=== PATIENT | female | born 1960 | race Caucasian/White ===

== ENCOUNTER 2023-09-23 04:26 | Outpatient (RCR) | payer OTHER, SELFPAY ==
[2023-09-02] MEDS: Normal Saline Flush 10 ML SYR IVP (10:16)
[2023-09-02 10:21] LABS: Abs Immature Grans 0.01 10^3/uL (0.0-0.06); Absolute Basophil Count 0.03 10^3/uL (0.0-0.2); Absolute Eosinophil Count 0.17 10^3/uL (0.0-0.7); Absolute Lymphocyte Count 1.74 10^3/uL (1.2-3.4); Absolute Monocyte Count 0.48 10^3/uL (0.1-0.8); Absolute Neutrophil Count 4.07 10^3/uL (1.2-6.7); Basophils % 0.5; Eosinophils % 2.6; HCT 38.9 % (36.0-46.0); HGB 12.5 g/dL (11.2-15.7); Immature Grans % 0.2; Lymphocytes % 26.8; MCH 26.5 pg (27.0-33.0); MCHC 32.1 % (32.0-36.0); MCV 82 fL (80-95); MPV 12.3 fL (8.0-11.0); Monocytes % 7.4; Neutrophils % 62.5; Platelet Count 262 10^3/uL (130-400); RBC 4.72 10^6/uL (3.93-5.22); RDW-SD 39.5 fL
[2023-09-02 10:40] LABS: ALT 19 U/L (14-59); AST 18 U/L (15-37); Albumin 2.9 g/dL (3.4-5.0); Alkaline Phosphatase 91 U/L (46-116); Anion Gap 9.1 mmol/L (3-11); BUN 12 mg/dL (7-18); Bilirubin, Total 0.4 mg/dL (0.2-1.0); CO2 29.9 mmol/L (21.0-32.0); CREATININE 1.1 mg/dL (0.55-1.02); Calcium 9.2 mg/dL (8.5-10.1); Chloride 104 mmol/L (98-107); Estimated GFR 55.76 (mL/min/1.73m2); Glucose 110 mg/dL (74-106); Potassium 3.2 mmol/L (3.5-5.1); Sodium 143 mmol/L (136-145); Total Protein 6.7 g/dL (6.4-8.2)
[2023-09-16] MEDS: Normal Saline Flush 10 ML SYR IVP (10:10)
[2023-09-16 10:49] LABS: HCT 35.6 % (36.0-46.0); HGB 11.6 g/dL (11.2-15.7); MCH 26.4 pg (27.0-33.0); MCHC 32.6 % (32.0-36.0); MCV 81 fL (80-95); MPV 11.2 fL (8.0-11.0); RBC 4.39 10^6/uL (3.93-5.22); RDW 12.3 % (11.7-14.6); RDW-SD 36.4 fL
[2023-09-16 11:06] LABS: Absolute Eosinophil Count 0.04 10^3/uL (0.0-0.7); Absolute Lymphocyte Count 0.52 10^3/uL (1.2-3.4); Absolute Monocyte Count 0.51 10^3/uL (0.1-0.8); Atypical Lymphocytes % 1; Diff Comment Manual Differential; RBC Morphology Normal
[2023-09-16 11:08] LABS: Platelet Count 232 10^3/uL (130-400)
[2023-09-16 11:10] LABS: ALT 17 U/L (14-59); AST 13 U/L (15-37); Albumin 2.7 g/dL (3.4-5.0); Alkaline Phosphatase 70 U/L (46-116); Anion Gap 10.3 mmol/L (3-11); BUN 10 mg/dL (7-18); Bilirubin, Total 0.3 mg/dL (0.2-1.0); CO2 28.7 mmol/L (21.0-32.0); CREATININE 1.2 mg/dL (0.55-1.02); Calcium 8.7 mg/dL (8.5-10.1); Chloride 100 mmol/L (98-107); Estimated GFR 50.23 (mL/min/1.73m2); Glucose 120 mg/dL (74-106); Sodium 139 mmol/L (136-145); Total Protein 6.9 g/dL (6.4-8.2)
[2023-09-16 11:13] LABS: Absolute Neutrophil Count 0.23 10^3/uL (1.2-6.7)
[2023-09-16 11:15] LABS: Potassium 2.9 mmol/L (3.5-5.1)
[2023-09-23] MEDS: Normal Saline Flush 10 ML SYR IVP (10:45)
[2023-09-23 10:53] LABS: Abs Immature Grans 0.16 10^3/uL (0.0-0.06); Absolute Basophil Count 0.06 10^3/uL (0.0-0.2); Absolute Eosinophil Count 0.03 10^3/uL (0.0-0.7); Absolute Lymphocyte Count 1.32 10^3/uL (1.2-3.4); Absolute Monocyte Count 0.89 10^3/uL (0.1-0.8); Absolute Neutrophil Count 5.49 10^3/uL (1.2-6.7); Basophils % 0.8; Eosinophils % 0.4; HCT 38.9 % (36.0-46.0); HGB 12.6 g/dL (11.2-15.7); Lymphocytes % 16.6; MCH 26.6 pg (27.0-33.0); MCHC 32.4 % (32.0-36.0); MCV 82 fL (80-95); MPV 10.3 fL (8.0-11.0); Monocytes % 11.2; Platelet Count 479 10^3/uL (130-400); RBC 4.73 10^6/uL (3.93-5.22); RDW 13.2 % (11.7-14.6); RDW-SD 39.3 fL; WBC 7.95 10^3/uL (4.4-10.8)
[2023-09-23 11:13] LABS: ALT 24 U/L (14-59); AST 23 U/L (15-37); Albumin 2.9 g/dL (3.4-5.0); Alkaline Phosphatase 82 U/L (46-116); Anion Gap 10.7 mmol/L (3-11); BUN 14 mg/dL (7-18); Bilirubin, Total 0.2 mg/dL (0.2-1.0); CO2 27.3 mmol/L (21.0-32.0); CREATININE 1.1 mg/dL (0.55-1.02); Calcium 8.9 mg/dL (8.5-10.1); Chloride 105 mmol/L (98-107); Estimated GFR 55.76 (mL/min/1.73m2); Glucose 118 mg/dL (74-106); Sodium 143 mmol/L (136-145); Total Protein 6.9 g/dL (6.4-8.2)
== END 2023-09-28 23:59 | disposition home or self-care (01) ==
LOC: INF 04:26
PROVIDERS: PCP Family Medicine; Visit Provider Internal Medicine Hematology & Oncology
DX: C50.412 Malignant neoplasm of upper-outer quadrant of left female breast (principal); Z17.0 Estrogen receptor positive status [ER+]; Z45.2 Encounter for adjustment and management of vascular access device
CPT/HCPCS: 36591; 80053; 85025

== ENCOUNTER 2023-10-21 04:40 | Outpatient (RCR) | payer OTHER, SELFPAY ==
[2023-10-07] MEDS: Normal Saline Flush 10 ML SYR IVP (10:54)
[2023-10-07 11:01] LABS: Abs Immature Grans 0.07 10^3/uL (0.0-0.06); Absolute Basophil Count 0.02 10^3/uL (0.0-0.2); Absolute Eosinophil Count 0.05 10^3/uL (0.0-0.7); Absolute Lymphocyte Count 0.74 10^3/uL (1.2-3.4); Absolute Monocyte Count 0.58 10^3/uL (0.1-0.8); Absolute Neutrophil Count 1.97 10^3/uL (1.2-6.7); Basophils % 0.6; Eosinophils % 1.5; HCT 34.5 % (36.0-46.0); HGB 11.3 g/dL (11.2-15.7); Lymphocytes % 21.6; MCHC 32.8 % (32.0-36.0); MCV 82 fL (80-95); MPV 10.6 fL (8.0-11.0); Monocytes % 16.9; Neutrophils % 57.4; Platelet Count 218 10^3/uL (130-400); RBC 4.19 10^6/uL (3.93-5.22); RDW 13.8 % (11.7-14.6); RDW-SD 39.8 fL; WBC 3.43 10^3/uL (4.4-10.8)
[2023-10-07 11:22] LABS: ALT 20 U/L (14-59); AST 15 U/L (15-37); Albumin 2.9 g/dL (3.4-5.0); Alkaline Phosphatase 83 U/L (46-116); Anion Gap 12.6 mmol/L (3-11); BUN 16 mg/dL (7-18); Bilirubin, Total 0.1 mg/dL (0.2-1.0); CO2 24.4 mmol/L (21.0-32.0); CREATININE 1.3 mg/dL (0.55-1.02); Calcium 8.7 mg/dL (8.5-10.1); Chloride 108 mmol/L (98-107); Estimated GFR 45.63 (mL/min/1.73m2); Glucose 114 mg/dL (74-106); Potassium 3.6 mmol/L (3.5-5.1); Sodium 145 mmol/L (136-145); Total Protein 6.7 g/dL (6.4-8.2)
[2023-10-21] MEDS: Normal Saline Flush 10 ML SYR IVP (10:41)
[2023-10-21 10:51] LABS: Absolute Basophil Count 0.03 10^3/uL (0.0-0.2); Absolute Eosinophil Count 0.01 10^3/uL (0.0-0.7); Absolute Lymphocyte Count 0.59 10^3/uL (1.2-3.4); Absolute Monocyte Count 0.73 10^3/uL (0.1-0.8); Basophils % 0.7; Eosinophils % 0.2; HCT 29.2 % (36.0-46.0); HGB 9.7 g/dL (11.2-15.7); Immature Grans % 2.4; Lymphocytes % 14.2; MCH 26.8 pg (27.0-33.0); MCHC 33.2 % (32.0-36.0); MCV 81 fL (80-95); MPV 10.6 fL (8.0-11.0); Monocytes % 17.5; Platelet Count 282 10^3/uL (130-400); RBC 3.62 10^6/uL (3.93-5.22); RDW 14.9 % (11.7-14.6); RDW-SD 42.6 fL; WBC 4.16 10^3/uL (4.4-10.8)
[2023-10-21 11:05] LABS: ALT 13 U/L (14-59); AST 11 U/L (15-37); Albumin 2.8 g/dL (3.4-5.0); Alkaline Phosphatase 67 U/L (46-116); Anion Gap 12.7 mmol/L (3-11); BUN 17 mg/dL (7-18); Bilirubin, Total 0.2 mg/dL (0.2-1.0); CO2 26.3 mmol/L (21.0-32.0); CREATININE 1.6 mg/dL (0.55-1.02); Calcium 8.3 mg/dL (8.5-10.1); Chloride 106 mmol/L (98-107); Estimated GFR 35.57 (mL/min/1.73m2); Glucose 114 mg/dL (74-106); Sodium 145 mmol/L (136-145); Total Protein 6.5 g/dL (6.4-8.2)
[2023-10-21 11:09] LABS: Potassium 2.7 mmol/L (3.5-5.1)
== END 2023-10-28 23:59 | disposition home or self-care (01) ==
LOC: INF 04:40
PROVIDERS: PCP Family Medicine; Visit Provider Internal Medicine Hematology & Oncology
DX: C50.412 Malignant neoplasm of upper-outer quadrant of left female breast (principal); Z17.0 Estrogen receptor positive status [ER+]; Z45.2 Encounter for adjustment and management of vascular access device
CPT/HCPCS: 36591; 80053; 85025

== ENCOUNTER 2023-11-04 10:14 | Inpatient (IN) | payer OTHER, SELFPAY ==
[2023-11-04] VITALS (119 sets, daily range): BP systolic 87–159; BP diastolic 46–74; PULSE 78–112; RESP 13–41; TEMP 36.4–36.8; O2SAT 93–100
--- NOTE | 2023-11-04 10:15 | RT.EKG_ITS ---
APPROVED REPORT Exam: Resting ECG Reason for Exam: low bp Patient Location: E HR:104 bpm ECG Measurements Heart Rate 104 AXIS TX [id number] P [id number] QRSd 91 QRS 33 QT 430 T 36 QTc 565 Conclusion Atrial fibrillation...V-rate 103-104, irreg A-activity Minimal ST depression, diffuse leads...ST <-0.03mV, ant/lat/inf Prolonged QT interval...QTc >500mS sinus rhythm, normal axis, normal itnervals, non ischemic
[2023-11-04 10:50] LABS: BE (Venous) -11 mmol/L (-2-3); HCO3 (Venous) 16 mmol/L (23-28); O2 Sat (Venous) 66 %; TCO2 (Venous) 15 mmol/L (24-29); pCO2 (Venous) 32 mmHg (41-51); pO2 (Venous) 39 mmHg
[2023-11-04 10:52] LABS: Abs Immature Grans 0.13 10^3/uL (0.0-0.06); Absolute Basophil Count 0.02 10^3/uL (0.0-0.2); Absolute Lymphocyte Count 0.67 10^3/uL (1.2-3.4); Absolute Neutrophil Count 4.75 10^3/uL (1.2-6.7); Basophils % 0.3 %; HCT 27.2 % (36.0-46.0); HGB 9.2 g/dL (11.2-15.7); Immature Grans % 1.9 %; MCH 27.1 pg (27.0-33.0); MCHC 33.8 % (32.0-36.0); MCV 80 fL (80-95); MPV 12.4 fL (8.0-11.0); Monocytes % 16.5 %; Neutrophils % 71.3 %; Platelet Count 197 10^3/uL (130-400); RBC 3.39 10^6/uL (3.93-5.22); RDW 15.9 % (11.7-14.6); RDW-SD 45.7 fL; WBC 6.67 10^3/uL (4.4-10.8)
[2023-11-04 10:54] LABS: Lactate 5.9 mmol/L (0.6-1.4)
[2023-11-04] MEDS: Normal Saline 1,000 ML 1000 ML IV (10:56)
[2023-11-04 11:07] LABS: INR 1.2 (0.9-1.1); Prothrombin Time 12.2 sec (9.1-11.1)
[2023-11-04 11:11] LABS: ALT 14 U/L (14-59); AST 14 U/L (15-37); Alkaline Phosphatase 63 U/L (46-116); Anion Gap 20.2 mmol/L (3-11); BUN 35 mg/dL (7-18); Bilirubin, Total 0.2 mg/dL (0.2-1.0); CO2 17.8 mmol/L (21.0-32.0); CREATININE 3.4 mg/dL (0.55-1.02); Calcium 8.1 mg/dL (8.5-10.1); Chloride 100 mmol/L (98-107); Glucose 153 mg/dL (74-106); Magnesium 0.9 mg/dL (1.8-2.4); Sodium 138 mmol/L (136-145)
[2023-11-04 11:14] LABS: Potassium 2.4 mmol/L (3.5-5.1)
[2023-11-04] MEDS: POTASSIUM CHLORIDE 20 MEQ/100 ML BAG 50 MEQ IVINF ×2 (11:29→14:16)
[2023-11-04] MEDS: MAGNESIUM SULFATE 2 GM/50 ML BAG IVINF (11:29)
[2023-11-04 12:21] LABS: C Diff PCR Negative (Negative)
--- NOTE | 2023-11-04 12:45 | DI.CT_ITS ---
Exam(s) CT RENAL COLIC WO EXAM: CT RENAL COLIC WO CLINICAL HISTORY: acute renal failure, hx of breast and rcc, [facility] [place] TECHNIQUE: Imaging Protocol: Axial computed tomography images with coronal and sagittal reformatted images were created and reviewed. FINDINGS: ABDOMEN: Lung Bases: There is a small infiltrate in the dependent portion of the right lower lobe. Liver: Normal density. No measurable mass. Gallbladder and biliary tract: Status post cholecystectomy. Pancreas: Normal density, no abnormal calcifications or inflammatory process. Spleen: Normal. Kidneys: The right kidney is unremarkable without evidence of nephrolithiasis or obstructive uropathy . There is a deformity of the superior pole of the left kidney. There is soft tissue stranding and i nfiltration of the surrounding perinephric space extending to the inferior aspect of the spleen.There is no evidence of left nephrolithiasis or obstructive uropathy. Adrenal glands: Right adrenal gland is unremarkable. The left adrenal gland is not appreciated. Lymph nodes: Within normal limits. Abdominal Aorta: Abdominal portion non-dilated. PELVIS: Bladder:The urinary bladder is incompletely distended limiting evaluation. No gross abnormalities lynn ntified. Bowel: No obstruction or bowel wall thickening. No evidence of appendicitis. Peritoneal cavity: No ascites, collection or mesenteric inflammatory response. No free air. Reproductive organs: Unremarkable as visualized. Bones: Within normal limits. Soft Tissues: Within normal limits. IMPRESSION: 1. No evidence of nephrolithiasis or obstructive uropathy. 2. Deformity involving the superior pole of the left kidney likely reflecting the patient's history o f renal cell carcinoma. Comparison should be made with prior examinations to assess progression of di sease. When priors become available an addendum will be issued at that time. 3. Small right basilar infiltrate which may represent atelectasis or pneumonia. 4. Findings were discussed with Velia Ardon on 11/04/2023. RADIATION DOSE DELIVERED: 1,195.26mGy.cm Total DLP DATA REPOSITORY: All CT scans at this facility are submitted to the National Radiology Data Registry (NRDR) Dose Index Registry (DIR) with the [employer] ([employer]). RADIATION OPTIMIZATION: All CT scans at this facility use at least one of these dose optimization te chniques: automated exposure control; mA and/or kV adjustment per patient size (includes targeted exa ms where dose is matched to clinical indication); or iterative reconstruction.
[2023-11-04] MEDS: Normal Saline 500 ML IV ×2 (12:47→14:48)
[2023-11-04 13:42] LABS: Lactate 2.3 mmol/L (0.6-1.4)
[2023-11-04 13:52] LABS: Anion Gap 16.3 mmol/L (3-11); BUN 35 mg/dL (7-18); CO2 19.7 mmol/L (21.0-32.0); Calcium 7.5 mg/dL (8.5-10.1); Chloride 105 mmol/L (98-107); Estimated GFR 16.73 (mL/min/1.73m2); Glucose 121 mg/dL (74-106); Sodium 141 mmol/L (136-145)
[2023-11-04 13:54] LABS: Potassium 2.6 mmol/L (3.5-5.1)
--- NOTE | 2023-11-04 14:02 | ED.GENADUL_ITS ---
Discharge Plan Disposition Patient Disposition: Admit to [facility] Condition: Critical Discharge Details Chief Complaint: GenMedical Clinical Impression: Anemia, Diarrhea due to drug, Acute on chronic renal insufficiency, Renal carcinoma, Breast cancer metastasized to axillary lymph node, Hypokalemia, Hypomagnesemia Admit Date/Time: 11/04/23 15:50 Admit Provider: Juancarlos Lynch Attending Provider: Juancarlos Lynch Primary Care Provider: Rob Ziegler ED Provider: Velia Ardon Discharge Data Discharge Date/Time-TO BE ENTERED AT DEPARTURE: 11/04/23 17:05 HPI General Date/Time Provider Initiated Documentation: 11/04/23 10:26 . HPI Narrative: This complicated 63-year-old female with history of breast cancer and renal cell carcinoma, hypertension presents with report of electrolyte abnormalities and hypotension per oncology office. Scheduled to receive new trial today. Completed cycle 2 weeks ago of Cytoxan and Adriamycin. States she feels lightheaded and weak and was told her electrolytes are abnormal. Denies any chest pain or shortness of breath. Denies any nausea and vomiting. Has had diarrhea intermittently over the course of the past several weeks, states it was worse a second and 3 October. Denies any vomiting. Drinking Gatorade at home and feels she is supplementing well for hydration. Denies any blood in stool or vomitus. Related Data Home Medications Medication Instructions Recorded Confirmed citalopram 40 mg tablet 40 mg PO HS 11/04/23 11/04/23 folic acid 1 mg tablet 1 mg PO HS 11/04/23 11/04/23 lisinopril 20 mg tablet 20 mg PO HS 11/04/23 11/04/23 loratadine 10 mg tablet (Claritin) 10 mg PO HS 11/04/23 11/04/23 Allergies Allergy/AdvReac Type Severity Reaction Status Date / Time Penicillins Allergy Mild Skin Rash Verified 11/04/23 11:04 General Stated Complaint: GenMedical WILLIAM: 3 Exam Narrative Exam Narrative: Alert and oriented chronically ill-appearing 63-year-old female with moist mucous membranes, pupils equal round reactive to light and accommodation, no icterus, lungs clear to auscultation, cardiac rate rhythm regular, no abdominal tenderness, pallor, alert and oriented x 4, no significant edema to bilateral lower extremities Course Vital Signs Vital signs: Vital Signs Pulse 112 H 11/04/23 10:16 Respiratory Rate 14 11/04/23 10:16 Blood Pressure 159/47 H 11/04/23 10:16 Pulse Oximetry 93 11/04/23 10:16 Pulse 85 11/04/23 13:47 Respiratory Rate 18 11/04/23 13:50 Respiratory Effort Short of Breath 11/04/23 10:44 Respiratory Depth Normal 11/04/23 10:44 Respiratory Pattern Normal 11/04/23 10:44 Blood Pressure 108/48 L 11/04/23 13:47 Blood Pressure Position Sitting 11/04/23 10:16 Pulse Oximetry 99 11/04/23 13:50 Oxygen Delivery Method Room Air 11/04/23 10:16 Oxygen Flow Rate 0 11/04/23 10:16 Pain Level 0 11/04/23 10:44 Lab/Test Results Lab/Test Results: 11/04/23 11:20 Blood Blood Culture - Pending 11/04/23 10:30 Blood Blood Culture - Pending Laboratory Tests Range/Units 11/04/23 11/04/23 11/04/23 10:40 10:48 13:35 WBC (4.4-10.8) 10^3/uL 6.67 RBC (3.93-5.22) 10^6/uL 3.39 L Hgb (11.2-15.7) g/dL 9.2 L Hct (36.0-46.0) % 27.2 L MCV (80-95) fL 80 MCH (27.0-33.0) pg 27.1 MCHC (32.0-36.0) % 33.8 RDW (11.7-14.6) % 15.9 H Plt Count (130-400) 10^3/uL 197 MPV (8.0-11.0) fL 12.4 H Immature Gran % % 1.9 Neutrophils % % 71.3 Lymphocytes % % 10.0 Monocytes % % 16.5 Eosinophils % % 0.0 Basophils % % 0.3 Nucleated RBC % (0.0-0.3) % 0.0 Absolute Neutrophils (1.2-6.7) 10^3/uL 4.75 Absolute Lymphocytes (1.2-3.4) 10^3/uL 0.67 L Absolute Monocytes (0.1-0.8) 10^3/uL 1.10 H Absolute Eosinophils (0.0-0.7) 10^3/uL 0.00 Absolute Basophils (0.0-0.2) 10^3/uL 0.02 PT (9.1-11.1) sec 12.2 H INR (0.9-1.1) 1.2 H VBG pH (7.31-7.41) 7.30 L VBG pCO2 (41-51) mmHg 32 L VBG pO2 mmHg 39 VBG HCO3 (23-28) mmol/L 16 L VBG Total CO2 (24-29) mmol/L 15 L VBG O2 Saturation % 66 VBG Base Excess (-2-3) mmol/L -11 L VBG Lactate (0.6-1.4) mmol/L 5.9 H* 2.3 H* Sodium (136-145) mmol/L 138 141 Potassium (3.5-5.1) mmol/L 2.4 L* 2.6 L* Chloride (98-107) mmol/L 100 105 Carbon Dioxide (21.0-32.0) mmol/L 17.8 L 19.7 L Anion Gap (3-11) mmol/L 20.2 H 16.3 H BUN (7-18) mg/dL 35 H 35 H Creatinine (0.55-1.02) mg/dL 3.4 H 3.0 H Est GFR (CKD-EPI 2020) (mL/min/1.73m2) 14.40 16.73 Glucose (74-106) mg/dL 153 H 121 H Calcium (8.5-10.1) mg/dL 8.1 L 7.5 L Magnesium (1.8-2.4) mg/dL 0.9 L Total Bilirubin (0.2-1.0) mg/dL 0.2 AST (15-37) U/L 14 L ALT (14-59) U/L 14 Alkaline Phosphatase (46-116) U/L 63 Total Protein (6.4-8.2) g/dL 7.0 Albumin (3.4-5.0) g/dL 3.0 L Stl C.difficile Tox PCR (Negative) Negative ABO/Rh O Positive Antibody Screen NEGATIVE Medical Decision Making This 63-year-old female is presenting chronically ill with history of breast and renal cancer this scheduled to initiate second cycle of single drug chemotherapy today with electrolyte abnormalities hypotension and weakness [facility] patient was 87/40, she did take her blood pressure meds yesterday. Currently her blood pressure is 95/65, her creatinine is 3.4, BUN is elevated, bicarb and gap are elevated. I suspect this is prerenal in nature as patient has not produced any urine throughout this encounter. She is not showing any signs of CHF overtly and her CT abdomen and pelvis does not show evidence of acute renal process per radiology interpretation and my review, specifically no evidence of obstructive process. pH 7.3, mag of 0.9, I did give 2 g of mag, however patient's blood pressure dropped slightly so I will hold additional magnesium at this time. Patient also has a potassium of 2.4. 20 mEq of IV and 40 mg of p.o. potassium was administered. Despite patient being in renal failure, I suspect this is prerenal in nature and will continue to supplement with potassium, on repeat BMP potassium increases to 2.6 and creatinine is improving. Patient had a bladder scan which showed only 85 cc of fluid in the bladder will continue to hydrate, has received 2 L of NS at this time. I suspect blood pressure is secondary to dehydration and will hold on any antibiotics at this time. Anemia has improved when comparing CBC from earlier today, no indication for transfusion. Patient will need admission to the hospital. She wishes to be full CODE STATUS at this time. Calcium is low, however patient is volume depleted, will order outpatient ionized calcium. I patient is also on chemotherapies which could be contributing to acute renal failure. Quality:[facility] Related Social Needs: No Data to Display Critical Care Time Critical Care Time Attestation: 45 minutes of critical care time secondary to potassium administration, magnesium administration for acute deficiency, IV fluid resuscitation secondary to acute renal failure in the presence of likely prerenal state of dehydration, no obstructive process noted PFSH All Active Problems (Updated 11/05/23 @ 08:32 by JOHNNY Tsai) Renal carcinoma (Acute) Anemia (Chronic) Discharge planning issues (Acute) DVT prophylaxis (Acute) Breast cancer metastasized to axillary lymph node (Acute) Hypomagnesemia (Acute) Hypokalemia (Acute) Acute on chronic renal insufficiency (Acute) Diarrhea due to drug (Acute) Hypertension (Chronic) Medical History (Updated 11/05/23 @ 08:32 by JOHNNY Tsai) Renal cell carcinoma of left kidney Depression with anxiety Surgical History (Updated 11/04/23 @ 18:37 by Juancarlos Lynch) H/O left mastectomy H/O partial nephrectomy left, for RCC Social History (Updated 11/04/23 @ 18:38 by Juancarlos Lynch) Smoking/Tobacco Use Status: Never Smoking risk assessment performed?: Yes Alcohol Intake: never Drug use: Never Housing: house Additional Social history: lives with Jevon, who is supportive and helps care for her. Born in [place], grew up in [place]
[2023-11-04] MEDS: Potassium Chloride 20 MEQ TABCR 40 MEQ PO (14:16)
[2023-11-04 15:56] LABS: Creatine Kinase 54 U/L (26-192)
[2023-11-04] MEDS: Enoxaparin 30 MG/0.3 ML SYR SC (17:37)
--- NOTE | 2023-11-04 18:25 | HPE_ITS ---
Date of service: 11/04/23 Time of Service: 18:25 Assessment and Plan Assessment and plan (1) Acute on chronic renal insufficiency: Status: Acute Assessment and plan: Reviewing outside record, she has some baseline renal insufficiency with Cr at 1.5, but clearly worse today. No signs obstruction on CT. Given poor oral intake and diarrhea with K/Mg low, improvement with initial hydration, this is very likely prerenal. Lisinopril was probably more than she needed with recent weight loss, likely contributing as well, holding this. Get urine lytes to confirm c/w prerenal s/p 2 liters NS in ED, she would like to try taking oral fluids She is clearly now making urine, but hard to quantify with incontinence. She agrees to ocampo short term. (2) Hypertension: Status: Chronic Assessment and plan: low BP initially, now stable. holding ROSALINA-inh. If this is restarted, will likely need lower dose. (3) Hypokalemia: Status: Acute Assessment and plan: Given 20mEq in ED, some imrpovement, but still very low. Now that making urine, give additional 20mEq. Repeat this evening and give more as needed. (4) Hypomagnesemia: Status: Acute Assessment and plan: 2g in ED, repeat this evening and give additional PRN (5) Breast cancer metastasized to axillary lymph node: Status: Acute Assessment and plan: Chemo on hold, follow up with heme/onc as outpatient (6) DVT prophylaxis: Status: Acute Assessment and plan: LMWH given high risk. (7) Diarrhea due to drug: Status: Acute Assessment and plan: Not active now. Negative C. dif on outside records. Can use loperamide prn History of Present Illness History of Present Illness Chief Complaint: abnormal labs, lightheaded N arrative: 63 yo with history of hypertension, breast cancer currently receiving chemotherapy, and renal cell carcinoma status post partial left nephrectomy who was sent by her oncologist after routine labs done today showed worsening kidney function and electrolyte abnormalities. Patient denies feeling acutely ill, but she has felt more generally weak and lightheaded over the past several days. She has had intermittent diarrhea over the past several weeks, typically for 3 days following chemotherapy infusions. She had copious diarrhea May 1 through 3, but this has improved. She denies nausea and vomiting. She denies fevers. She has been drinking juice and Gatorade at home, but has not had anything to eat or drink today. She finished the first cycle of Cytoxan and Adriamycin 2 weeks ago, and was supposed to start the second cycle today for her breast cancer. She has noted that she is making less urine over the last day or 2, but since the IV in the emergency room she has urinated, but states she could not save it because it was mixed with stool. Review of Systems All systems reviewed & are unremarkable except as noted in HPI and below Constitutional Constitutional: Denies headache(s) Eyes Eyes: Denies loss of vision ENT Ears, Nose, Mouth, and Throat: Denies dental pain, Denies vertigo, Denies headache(s), Denies mouth lesions, Reports nasal discharge (chronic rhinorrhea, clear), Denies sinus pain and Denies sore throat Cardiovascular Cardiovascular: Denies chest pain, Denies leg edema, Denies palpitations and Denies dyspnea Respiratory Respiratory: Denies dyspnea Gastrointestinal Gastrointestinal: Reports as per HPI, Denies melena, Denies hematochezia and Reports cramping (in lower abdomen with stools) Neurologic Neurologic: Denies confusion, Denies vertigo, Denies headache(s), Denies localized weakness, Denies loss of vision, Denies sensory deficit and Reports tremor(s) (tremor noted in mouth since chemo started) Psychiatric Psychiatric: Denies confusion Endocrine Endocrine: Denies palpitations PFSH All Active Problems (Updated 11/04/23 @ 18:47 by Juancarlos Lynch) Discharge planning issues (Acute) DVT prophylaxis (Acute) Breast cancer metastasized to axillary lymph node (Acute) Hypomagnesemia (Acute) Hypokalemia (Acute) Acute on chronic renal insufficiency (Acute) Diarrhea due to drug (Acute) Hypertension (Chronic) Medical History (Updated 11/04/23 @ 18:47 by Juancarlos Lynch) Renal cell carcinoma of left kidney Depression with anxiety Surgical History (Updated 11/04/23 @ 18:37 by Juancarlos Lynch) H/O left mastectomy H/O partial nephrectomy left, for RCC Social History (Updated 11/04/23 @ 18:38 by Juancarlos Lynch) Smoking/Tobacco Use Status: Never Smoking risk assessment performed?: Yes Alcohol Intake: never Drug use: Never Additional Social history: lives with Jevon, who is supportive and helps care for her. Born in [place], grew up in [place] Meds Allergies and Home Medications Allergies Allergy/AdvReac Type Severity Reaction Status Date / Time Penicillins Allergy Mild Skin Rash Verified 11/04/23 11:04 Home Medications Medication Instructions Recorded Confirmed Type citalopram 40 mg tablet 20 mg PO DAILY 11/04/23 11/04/23 History folic acid 1 mg tablet 1 mg PO DAILY 11/04/23 11/04/23 History lisinopril 20 mg tablet 20 mg PO DAILY 11/04/23 11/04/23 History Results Imaging Abdomen CT scan report/results: report reviewed (CT abd/pelvis w/o (renal): 1. No evidence of nephrolithiasis or obstructive uropathy. 2. Deformity involving the superior pole of the left kidney likely reflecting the patient's history of renal cell carcinoma. Comparison should be made with prior examinations to assess progression of disease. When) EKG: report reviewed and image reviewed (computer read as Afib, but I agree with Dr. Turner that NSR, nl axis, no ST-T changes. QTc long 565) Labs 11/04/23 10:40 11/04/23 13:35 Labs: Laboratory Results - last 24 hr 11/04/23 11/04/23 11/04/23 10:40 10:48 13:05 WBC 6.67 RBC 3.39 L Hgb 9.2 L Hct 27.2 L MCV 80 MCH 27.1 MCHC 33.8 RDW 15.9 H Plt Count 197 MPV 12.4 H Immature Gran % 1.9 Neutrophils % 71.3 Lymphocytes % 10.0 Monocytes % 16.5 Eosinophils % 0.0 Basophils % 0.3 Nucleated RBC % 0.0 Absolute Neutrophils 4.75 Absolute Lymphocytes 0.67 L Absolute Monocytes 1.10 H Absolute Eosinophils 0.00 Absolute Basophils 0.02 PT 12.2 H INR 1.2 H VBG pH 7.30 L VBG pCO2 32 L VBG pO2 39 VBG HCO3 16 L VBG Total CO2 15 L VBG O2 Saturation 66 VBG Base Excess -11 L VBG Lactate 5.9 H* Sodium 138 Potassium 2.4 L* Chloride 100 Carbon Dioxide 17.8 L Anion Gap 20.2 H BUN 35 H Creatinine 3.4 H Est GFR (CKD-EPI 2020) 14.40 Glucose 153 H Calcium 8.1 L Magnesium 0.9 L Total Bilirubin 0.2 AST 14 L ALT 14 Alkaline Phosphatase 63 Creatine Kinase 54 Total Protein 7.0 Albumin 3.0 L Ur Collection Duration Ur 24 Hour Volume Ur Albumin 24 Hour Albumin Excret Rate 24H Urine Albumin Conc Stl C.difficile Tox PCR Negative ABO/Rh O Positive Antibody Screen NEGATIVE 11/04/23 11/04/23 13:35 15:30 WBC RBC Hgb Hct MCV MCH MCHC RDW Plt Count MPV Immature Gran % Neutrophils % Lymphocytes % Monocytes % Eosinophils % Basophils % Nucleated RBC % Absolute Neutrophils Absolute Lymphocytes Absolute Monocytes Absolute Eosinophils Absolute Basophils PT INR VBG pH VBG pCO2 VBG pO2 VBG HCO3 VBG Total CO2 VBG O2 Saturation VBG Base Excess VBG Lactate 2.3 H* Sodium 141 Potassium 2.6 L* Chloride 105 Carbon Dioxide 19.7 L Anion Gap 16.3 H BUN 35 H Creatinine 3.0 H Est GFR (CKD-EPI 2020) 16.73 Glucose 121 H Calcium 7.5 L Magnesium Total Bilirubin AST ALT Alkaline Phosphatase Creatine Kinase Total Protein Albumin Ur Collection Duration Cancelled Ur 24 Hour Volume Cancelled Ur Albumin 24 Hour Cancelled Albumin Excret Rate 24H Cancelled Urine Albumin Conc Cancelled Stl C.difficile Tox PCR ABO/Rh Antibody Screen Last Vital Signs Temp 36.4 C L 11/04/23 17:30 Pulse 90 11/04/23 17:30 Resp 16 11/04/23 17:30 BP 111/58 L 11/04/23 17:30 Pulse Ox 100 11/04/23 17:30 Time Spent Time spent with Patient: >75 minutes Time was spent: preparing to see the patient(eg.review tests), obtaining and/or reviewing separately otained hiistory, ordering medications,tests, procedures, referring, communicating with other health manager primary care, indepentently interpreting results, counseling the patient and care coordination
[2023-11-04] MEDS: Folic Acid 1 MG TAB PO (21:56)
[2023-11-04] MEDS: Citalopram 20 MG TAB PO (21:56)
[2023-11-04 22:13] LABS: Bilirubin Small (Negative); Blood Small (Negative); Clarity Sl Cloudy (Clear); Glucose Negative (Negative); Ketones Trace mg/dL (Negative); Leukocyte Esterase Negative (Negative); Nitrite Negative (Negative); Specific Gravity 1.025 (1.005-1.025); Urobilinogen 0.2 mg/dL (Up to 0.2); pH 5.5 (5-8)
[2023-11-04 22:15] LABS: Ionized Calcium 0.97 mmol/L (1.14-1.35)
[2023-11-04 22:18] LABS: Anion Gap 15.4 mmol/L (3-11); BUN 35 mg/dL (7-18); CO2 20.6 mmol/L (21.0-32.0); Calcium 7.6 mg/dL (8.5-10.1); Chloride 106 mmol/L (98-107); Estimated GFR 16.73 (mL/min/1.73m2); Glucose 110 mg/dL (74-106); Magnesium 1.3 mg/dL (1.8-2.4); Sodium 142 mmol/L (136-145)
[2023-11-04 22:21] LABS: Bacteria Few HPF (Negative); C & S Indicated? No; Crystals Negative HPF (Negative); Epithelial Cells Moderate HPF (Negative); Mucus Negative (Negative)
[2023-11-04 22:22] LABS: Potassium 2.6 mmol/L (3.5-5.1)
[2023-11-04 22:22] LABS: WBC 0-2 HPF (0-5)
[2023-11-04 22:24] LABS: Sodium, Urine 19 mmol/L
[2023-11-04 22:31] LABS: Creatinine,Urine 396.83 mg/dL
[2023-11-04] MEDS: POTASSIUM CHLORIDE/0.9% NACL 1,000 ML 100 MEQ IV (23:34)
[2023-11-04] MEDS: POTASSIUM CHLORIDE 10 MEQ/100 ML BAG 100 MEQ IVINF (23:34)
[2023-11-05 00:21] LABS: Campylobacter PCR Negative (Negative); Salmonella PCR Negative (Negative); Shiga Toxin PCR Negative (Negative); Shigella/Enteroinvasive Ecoli Negative (Negative)
[2023-11-05 03:23] VITALS: BP 138/73; PULSE 92; RESP 15; TEMP 36.4; O2SAT 98
[2023-11-05 07:08] LABS: MCH 26.7 pg (27.0-33.0); MCHC 33.3 % (32.0-36.0); MCV 80 fL (80-95); MPV 11.5 fL (8.0-11.0); Platelet Count 199 10^3/uL (130-400); RDW 16.2 % (11.7-14.6); RDW-SD 45.5 fL; WBC 5.37 10^3/uL (4.4-10.8)
[2023-11-05 07:25] LABS: Anion Gap 15.8 mmol/L (3-11); BUN 32 mg/dL (7-18); CO2 20.2 mmol/L (21.0-32.0); CREATININE 2.2 mg/dL (0.55-1.02); Calcium 7.9 mg/dL (8.5-10.1); Chloride 108 mmol/L (98-107); Estimated GFR 24.27 (mL/min/1.73m2); Glucose 120 mg/dL (74-106); Magnesium 1.3 mg/dL (1.8-2.4); Potassium 3.1 mmol/L (3.5-5.1); Sodium 144 mmol/L (136-145)
[2023-11-05 08:09] VITALS: BP 119/65; PULSE 90; RESP 15; TEMP 36.4; O2SAT 94
[2023-11-05] MEDS: MAGNESIUM SULFATE 4 GM/100 ML BAG IVINF (09:27)
--- NOTE | 2023-11-05 09:32 | W.PM.PROGNOT ---
Date of Service Date of service: 11/05/23 Time of Service: 09:32 Assessment and Plan Assessment and plan (1) Acute on chronic renal insufficiency: Status: Acute Assessment and plan: Cr up to 3.4 from 1.6 on admission, improving now with IV hydration c/w pre-renal. No signs obstruction on CT. Lisinopril was probably more than she needed with recent weight loss, likely contributing as well, holding this. Urine lytes orderd confirm c/w prerenal Vomited after first meal in the past 24 hours last night, will resume fluids today and progress slowly. Appropriate urine output documented this morning, continue ocampo for now. Anion gap still noted. Initially elevated lactate improved with hydration, SURY also contributing. I expect this to resolve. (2) Hypertension: Status: Chronic Assessment and plan: low BP initially, now stable. holding ROSALINA-inh. If this is restarted, will likely need lower dose. (3) Hypokalemia: Status: Acute Assessment and plan: Still low, additional IV potassium runs today, follow in PM. Also treating low magnesium (4) Hypomagnesemia: Status: Acute Assessment and plan: Still quite low, additional 4mg IV today. Follow. (5) Breast cancer metastasized to axillary lymph node: Status: Acute Assessment and plan: Chemo on hold, follow up with heme/onc as outpatient (6) Diarrhea due to drug: Status: Acute Assessment and plan: Soft stools overnight but this is common for her. No overt diarrhea. Negative C. dif on outside records. Can use loperamide prn (7) DVT prophylaxis: Status: Acute Assessment and plan: LMWH given high risk. Subjective Subjective Patient reports: denies shortness of breath or fever Interval history since last seen: Was hungry last night, ate soup and tuna sandwich and vomited around midnight. Was made NPO then. No nausea now. Would like to try fluids again. She denies diarrhea, but did have 3 soft stools. No abdominal pain. Exam Narrative Exam Narrative: Alert and oriented chronically ill-appearing female, alert and oriented x 4, pupils equal round reactive to light and accommodation, no icterus, MMM. lungs clear to auscultation, cardiac rate rhythm regular, no abdominal tenderness or distention or masses. no significant edema or tendernessto bilateral lower extremities Objective Last Vital Signs Temp 36.4 C L 11/05/23 08:09 Pulse 90 11/05/23 08:09 Resp 15 11/05/23 08:09 BP 119/65 11/05/23 08:09 Pulse Ox 94 11/05/23 08:09 Laboratory Results - last 24 hr 11/04/23 11/04/23 11/04/23 10:40 10:48 13:05 WBC 6.67 RBC 3.39 L Hgb 9.2 L Hct 27.2 L MCV 80 MCH 27.1 MCHC 33.8 RDW 15.9 H Plt Count 197 MPV 12.4 H Immature Gran % 1.9 Neutrophils % 71.3 Lymphocytes % 10.0 Monocytes % 16.5 Eosinophils % 0.0 Basophils % 0.3 Nucleated RBC % 0.0 Absolute Neutrophils 4.75 Absolute Lymphocytes 0.67 L Absolute Monocytes 1.10 H Absolute Eosinophils 0.00 Absolute Basophils 0.02 PT 12.2 H INR 1.2 H VBG pH 7.30 L VBG pCO2 32 L VBG pO2 39 VBG HCO3 16 L VBG Total CO2 15 L VBG O2 Saturation 66 VBG Base Excess -11 L VBG Lactate 5.9 H* Sodium 138 Potassium 2.4 L* Chloride 100 Carbon Dioxide 17.8 L Anion Gap 20.2 H BUN 35 H Creatinine 3.4 H Est GFR (CKD-EPI 2020) 14.40 Glucose 153 H Calcium 8.1 L Magnesium 0.9 L Total Bilirubin 0.2 AST 14 L ALT 14 Alkaline Phosphatase 63 Creatine Kinase 54 Total Protein 7.0 Albumin 3.0 L Urine Color Urine Clarity Urine pH Ur Specific [place] Urine Protein Urine Ketones Urine Blood Urine Nitrite Urine Bilirubin Urine Urobilinogen Ur Leukocyte Esterase Urine RBC Urine WBC Ur Epithelial Cells Urine Crystals Urine Bacteria Urine Mucus Ur Culture Indicated? Ur Random Creatinine Ur Random Sodium Ur Collection Duration Ur 24 Hour Volume Ur Albumin 24 Hour Albumin Excret Rate 24H Urine Glucose Urine Albumin Conc Stl C.difficile Tox PCR Negative ABO/Rh O Positive Antibody Screen NEGATIVE 11/04/23 11/04/23 11/04/23 13:35 15:30 21:45 WBC RBC Hgb Hct MCV MCH MCHC RDW Plt Count MPV Immature Gran % Neutrophils % Lymphocytes % Monocytes % Eosinophils % Basophils % Nucleated RBC % Absolute Neutrophils Absolute Lymphocytes Absolute Monocytes Absolute Eosinophils Absolute Basophils PT INR VBG pH VBG pCO2 VBG pO2 VBG HCO3 VBG Total CO2 VBG O2 Saturation VBG Base Excess VBG Lactate 2.3 H* Sodium 141 Potassium 2.6 L* Chloride 105 Carbon Dioxide 19.7 L Anion Gap 16.3 H BUN 35 H Creatinine 3.0 H Est GFR (CKD-EPI 2020) 16.73 Glucose 121 H Calcium 7.5 L Magnesium Total Bilirubin AST ALT Alkaline Phosphatase Creatine Kinase Total Protein Albumin Urine Color Yellow Urine Clarity Sl Cloudy Urine pH 5.5 Ur Specific [place] 1.025 Urine Protein Trace Urine Ketones Trace H Urine Blood Small H Urine Nitrite Negative Urine Bilirubin Small H Urine Urobilinogen 0.2 Ur Leukocyte Esterase Negative Urine RBC 3-5 H Urine WBC 0-2 Ur Epithelial Cells Moderate Urine Crystals Negative Urine Bacteria Few Urine Mucus Negative Ur Culture Indicated? No Ur Random Creatinine 396.83 Ur Random Sodium 19 Ur Collection Duration Cancelled Ur 24 Hour Volume Cancelled Ur Albumin 24 Hour Cancelled Albumin Excret Rate 24H Cancelled Urine Glucose Negative Urine Albumin Conc Cancelled Stl C.difficile Tox PCR ABO/Rh Antibody Screen 11/04/23 11/05/23 21:50 06:46 WBC 5.37 RBC 3.00 L Hgb 8.0 L Hct 24.0 L MCV 80 MCH 26.7 L MCHC 33.3 RDW 16.2 H Plt Count 199 MPV 11.5 H Immature Gran % Neutrophils % Lymphocytes % Monocytes % Eosinophils % Basophils % Nucleated RBC % Absolute Neutrophils Absolute Lymphocytes Absolute Monocytes Absolute Eosinophils Absolute Basophils PT INR VBG pH VBG pCO2 VBG pO2 VBG HCO3 VBG Total CO2 VBG O2 Saturation VBG Base Excess VBG Lactate Sodium 142 144 Potassium 2.6 L* 3.1 L Chloride 106 108 H Carbon Dioxide 20.6 L 20.2 L Anion Gap 15.4 H 15.8 H BUN 35 H 32 H Creatinine 3.0 H 2.2 H Est GFR (CKD-EPI 2020) 16.73 24.27 Glucose 110 H 120 H Calcium 7.6 L 7.9 L Magnesium 1.3 L 1.3 L Total Bilirubin AST ALT Alkaline Phosphatase Creatine Kinase Total Protein Albumin Urine Color Urine Clarity Urine pH Ur Specific [place] Urine Protein Urine Ketones Urine Blood Urine Nitrite Urine Bilirubin Urine Urobilinogen Ur Leukocyte Esterase Urine RBC Urine WBC Ur Epithelial Cells Urine Crystals Urine Bacteria Urine Mucus Ur Culture Indicated? Ur Random Creatinine Ur Random Sodium Ur Collection Duration Ur 24 Hour Volume Ur Albumin 24 Hour Albumin Excret Rate 24H Urine Glucose Urine Albumin Conc Stl C.difficile Tox PCR ABO/Rh Antibody Screen Time Spent with Patient Time Spent with Patient: 35-49 minutes Time was spent: preparing to see the patient(eg.review tests), obtaining and/or reviewing separately otained hiistory, ordering medications,tests, procedures, referring, communicating with other health small animal caretaker, indepentently interpreting results and counseling the patient
[2023-11-05] MEDS: Normal Saline Flush 10 ML SYR (09:35)
[2023-11-05] MEDS: POTASSIUM CHLORIDE/0.9% NACL 1,000 ML 100 MEQ IV (10:26)
--- NOTE | 2023-11-05 10:44 | PDOC.CMIN ---
Date of service: 11/05/23 Time of Service: 10:44 Care Management Initial Assmt Initial Assessment REASON FOR HOSPITALIZATION:: Acute on chronic renal insufficiency PREVIOUS FUNCTIONAL STATUS/SOCIAL/FAMILY SUPPORTS:: Sarah lives in [facility] with her Redd and grandson. Her children Miri and Mani live out of state and are supportive. Sarah has breast cancer and a HX of renal cancer. She is being treated for breast cancer and sees Oncology at [facility] in [facility]. She came to the ED after becoming lightheaded and weak at her chemo appointment. Sarah requires assistance with her ADL/IADL's due to her health decline and Redd provides this support. Redd is retired from the and is able to be home to care for his . CURRENT FUNCTIONAL STATUS:: Sarah was lying in bed, visiting with her who was sitting at her bedside. She had Nausea and vomiting after eating a sandwich , and is pleased that she can now tolerate a liquid diet. Sarah feels very supported by her and expresses her gratitude that he is so helpful. At home she ambulates with the help of her rather than using a walker or a cane. Sarah doesn't use any DME at this time but has a walker and commode that was her mothers. ADVANCE DIRECTIVES:: on file, [facility] Esteves, alt agent Redd Esteves Has patient been provided with info about the portal/API?: Yes Did the patient sign up for the portal?: No CODE STATUS:: Full Code INSURANCE COVERAGE / FINANCIAL ISSUES:: [place] CURRENT HOME/COMMUNITY SERVICES/EQUIPMENT:: [employer] [place] [employer] PRIMARY CARE PHYSICIAN:: Rob Ziegler POTENTIAL DISCHARGE NEEDS:: Discharge plan of care, follow up with oncology, ?Palliative consult PATIENT/FAMILY EDUCATION NEEDS:: Review discharge instructions, limitations, medications and plan to follow up with community providers. Discuss ask me three. ANTICIPATED BARRIERS TO DISCHARGE:: None identified TRANSPORTATION:: via private vehicle with PLAN:: Sarah is being closely monitored and treated. Anticipate, she will discharge home and follow up with [facility] and PCP when Medically ready. She will transport via private vehicle with her . New O/E VNA services will be ordered, if needed. CM will follow. PFSH All Active Problems (Updated 11/05/23 @ 08:32 by JOHNNY Tsai) Renal carcinoma (Acute) Anemia (Chronic) Discharge planning issues (Acute) DVT prophylaxis (Acute) Breast cancer metastasized to axillary lymph node (Acute) Hypomagnesemia (Acute) Hypokalemia (Acute) Acute on chronic renal insufficiency (Acute) Diarrhea due to drug (Acute) Hypertension (Chronic) Medical History (Updated 11/05/23 @ 08:32 by JOHNNY Tsai) Renal cell carcinoma of left kidney Depression with anxiety Surgical History (Updated 11/04/23 @ 18:37 by Juancarlos Lynch) H/O left mastectomy H/O partial nephrectomy left, for RCC Social History (Updated 11/04/23 @ 18:38 by Juancarlos Lynch) Smoking/Tobacco Use Status: Never Smoking risk assessment performed?: Yes Alcohol Intake: never Drug use: Never Housing: house Additional Social history: lives with Jevon, who is supportive and helps care for her. [place] in [place], [place] in [place] SDOH(Care Management) Screening Will the Patient Participate in the Screening?: Yes Do you worry about having a steady place to live?: no In the past 12 months, have you had to go without electric, gas, oil or water in your home?: no Have you or anyone in your house had to go without enough food to eat?: no Has lack of transportation kept you from medical appointments or from doing things needed for daily living?: no Has anyone in your support network made you feel unsafe for any reason?: no
[2023-11-05 11:23] VITALS: BP 106/55; PULSE 91; RESP 16; TEMP 37; O2SAT 97
[2023-11-05] MEDS: POTASSIUM CHLORIDE 20 MEQ/100 ML BAG 50 MEQ IVINF ×2 (13:38→17:02)
[2023-11-05 16:07] VITALS: BP 117/60; PULSE 85; RESP 16; TEMP 37; O2SAT 98
[2023-11-05] MEDS: Enoxaparin 30 MG/0.3 ML SYR SC (17:02)
[2023-11-05 19:31] LABS: Potassium 3.9 mmol/L (3.5-5.1)
[2023-11-05 19:37] VITALS: BP 112/59; PULSE 100; RESP 18; TEMP 36.7; O2SAT 96
[2023-11-05] MEDS: Folic Acid 1 MG TAB PO (21:11)
[2023-11-05] MEDS: Loratidine 10 MG TAB PO (21:11)
[2023-11-06 00:16] VITALS: BP 98/50; PULSE 90; RESP 16; TEMP 37.2; O2SAT 96
[2023-11-06] MEDS: Normal Saline Flush 10 ML SYR (03:33)
[2023-11-06] MEDS: POTASSIUM CHLORIDE/0.9% NACL 1,000 ML 100 MEQ IV (03:37)
[2023-11-06 07:54] VITALS: BP 108/65; PULSE 84; RESP 16; TEMP 36.2; O2SAT 99
[2023-11-06 09:33] LABS: BUN 16 mg/dL (7-18); CREATININE 1.1 mg/dL (0.55-1.02); Calcium 7.9 mg/dL (8.5-10.1); Chloride 111 mmol/L (98-107); Estimated GFR 55.76 (mL/min/1.73m2); Glucose 103 mg/dL (74-106); Magnesium 1.6 mg/dL (1.8-2.4); Potassium 3.7 mmol/L (3.5-5.1); Sodium 144 mmol/L (136-145)
[2023-11-06 11:09] VITALS: BP 114/68; PULSE 91; RESP 16; TEMP 36.3; O2SAT 99
[2023-11-06] MEDS: MAGNESIUM SULFATE 2 GM/50 ML BAG IVINF (11:22)
--- NOTE | 2023-11-06 14:15 | PDOC.CMPRO ---
Date of service: 11/06/23 Time of Service: 14:15 Care Management Progress Note Progress Note Text Progress Note Text: S/O: Sarah was in bed with the HOB elevated when CM met with her. Her was sitting at the bedside. Sarah is planning on discharging home later today if she is able to tolerate solid foods. She's feels much better and is waiting for a tray with solids. Nutrition is notified. Pt states that she has an appointment with Oncology next Friday and plans on resuming chemo. Sarah feels well supported at home and within the medical community and expresses how thankful she is for the care [facility] is providing. She also talks about the layout of her home and how she and her use their Lucía's as an alarm system and for communication. A: 63 year old female admitted to [facility] on 11/04/23 for Acute on chronic renal insufficiency P:Sarah is being closely monitored and treated. Anticipate, she will discharge home and follow up with [facility] and PCP when Medically ready. She will transport via private vehicle with her . New O/E VNA services will be ordered, if needed. CM will follow. SDOH(Care Management) Screening Will the Patient Participate in the Screening?: Yes Do you worry about having a steady place to live?: no In the past 12 months, have you had to go without electric, gas, oil or water in your home?: no Have you or anyone in your house had to go without enough food to eat?: no Has lack of transportation kept you from medical appointments or from doing things needed for daily living?: no Has anyone in your support network made you feel unsafe for any reason?: no
[2023-11-06 15:38] VITALS: BP 135/63; PULSE 90; RESP 16; TEMP 36.5; O2SAT 100
[2023-11-06] MEDS: Enoxaparin 30 MG/0.3 ML SYR SC (15:55)
--- NOTE | 2023-11-06 17:09 | W.PM.DS.N ---
Date of service: 11/06/23 Time of Service: 17:10 DS: Diagnosis Discharge Diagnosis (1) Acute on chronic renal insufficiency: Status: Acute Asessment and Plan: SURY resolved. (2) Hypertension: Status: Chronic (3) Hypokalemia: Status: Acute Asessment and Plan: normalized with supplumentation (4) Hypomagnesemia: Status: Acute (5) Breast cancer metastasized to axillary lymph node: Status: Acute (6) Diarrhea due to drug: Status: Acute Discharge Plan Disposition Patient Disposition: Home Condition: Improving Discharge Details Reason For Visit: acute kidney injury, dehydration, hypokalemia Admit Date/Time: 11/04/23 15:50 Admit Provider: Juancarlos Lynch Attending Provider: Juancarlos Lynch Primary Care Provider: Rob Ziegler Hospital Course Hospital Course: 63 yo F with history of stage 3a CKD, renal cell carcinoma s/p partial left nephrectomy, active breast cancer recieving chemotherapy with Cytoxan and Adriamycin who was sent by oncology office due to hypokalemia and SURY in setting of loose stools and generalized weakness. She had finished her last round of her first cycle of chemotherapy 2 weeks prior to admission, had 3 days of severe diarrhea after this, had a few loose stools a day since then. She did not have nausea or vomiting, but had been eating less. Outpatient labs demonstrated Cr of 3.2 up from 1.1-1.6 and K+ of 2.4 and Mg++ of 0.9. CT on admission w/o contrast showed no hydronephrosis or new renal mass. FeNA was 0.1% c/w prerenal. Her creatinine improved with IV hydration and potassium and magnesium where supplemented IV. She did vomit once after eating a tuna sandwich on evening of admission, but tolerated clears and then a regular diet on the day of discharge. Magnesium was still 1.6 on morning of discharge, but she was given an additional 2g IV before going home. Creatinine was down to 1.1 on morning of discharge. C. dificile assay was negative as was fecal bacterial pathogen screen. She was treated with loperamide. Her calcium was also mildly low, confirmed but ionized calcium of 0.97 at admission. Serum calcium improved to normal corrected. She does have a tremor of her chin which she stated started with chemotherapy. She was given a basic calcium supplement along with conservative potassium and magnesium supplementation. Home Meds and New Rx's Prescriptions: New loratadine 10 mg Tablet 10 mg PO HS Qty: 0 0RF potassium chloride 20 mEq tablet extended release 20 meq PO DAILY Qty: 14 0RF magnesium oxide 400 mg magnesium tablet 400 mg PO DAILY Qty: 30 0RF calcium carbonate 500 mg calcium (1,250 mg) tablet 500 mg PO DAILY Qty: 30 0RF Continued lisinopril 20 mg tablet 20 mg PO HS folic acid 1 mg tablet 1 mg PO HS citalopram 40 mg tablet 40 mg PO HS loratadine [Claritin] 10 mg tablet 10 mg PO HS Discharge Instructions Instructions: Acute Kidney Injury (DC) Additional Instructions: You were dehydrated when you came in and you had very low potassium and magnesium as well as low calcium. This is likely related to chronic loose stools and not eating and drinking enough. We want you to take suppements of potassium, magnesium, and calcium you should recheck the blood tests in 1-2 weeks when you follow up with your provider take the loperamide (Immodium) to slow down the stools Activity:: Activity as Tolerated Equipment/Supplies:: No Equipment Needed Diet:: As Tolerated Discharge Orders Discharge Orders: Discharge Order (Routine); Ordered 11/06/23 Ordered By: Juancarlos Lynch DS: Summary Time Spent with Patient providing and/or coordinating discharge services: Greater than 30 minutes Status at Discharge Functional status at discharge: independent ambulation Overall status at discharge: patient is back to baseline Mental Status: mental status grossly normal Speech and Movement: speech and movement normal Mood: congruent mood Affect: normal affect Quality:SDOH Health Related Social Needs: No Data to Display Exam Narrative Exam Narrative: Alert and oriented chronically ill-appearing female, alert and oriented x 4. no icterus, MMM. lungs clear to auscultation, cardiac rate rhythm regular, no abdominal tenderness or distention or masses. no significant edema or tenderness in bilateral lower extremities Psych Mental Status: mental status grossly normal Speech and Movement: speech and movement normal Mood: congruent mood Affect: normal affect DS: Data Vitals/I&O Vitals and I&O: Vital Signs Temperature 36.5 C 11/06/23 15:38 Temperature Source Tympanic 11/06/23 15:38 Pulse 90 11/06/23 15:38 Pulse Rhythm Regular 11/06/23 09:10 Pulse 78 11/04/23 16:20 Respiratory Rate 16 11/06/23 15:38 Respiratory Effort Normal, Non-Labored 11/06/23 09:10 Respiratory Depth Normal 11/06/23 09:10 Respiratory Pattern Normal 11/06/23 09:10 Blood Pressure 135/63 11/06/23 15:38 Blood Pressure Mean 70 11/04/23 16:18 Blood Pressure Position Supine 11/04/23 15:20 Pulse Oximetry 100 11/06/23 15:38 Oxygen Delivery Method Room Air 11/06/23 15:38 Oxygen Flow Rate 0 11/06/23 15:38 Pain Level 0 11/06/23 15:38 Comment lower right arm 11/05/23 16:07 Intake & Output 11/05/23 11/06/23 11/06/23 23:59 11:59 23:59 Intake Total 300 / 1400 1220 / 1492 272 / 1492 Output Total 700 / 1600 1300 / 1600 300 / 1600 Balance -400 / -200 -80 / -108 -28 / -108 Intake: IV 100 / 1200 1000 / 1050 50 / 1050 Oral 200 / 200 220 / 442 222 / 442 Output: Urine 600 / 1500 1300 / 1600 300 / 1600 Stool 100 / 100 Other: Urine Color Pale Pale Yellow Yellow Yellow Urine Appearance Clear Clear Clear Urine Odor Normal Stool Size Small Small Stool Characteristics Liquid Liquid Brown Emesis Description None Voiding Methods Bedside Commode Bedside Commode Data Completed and Pending Labs on day of discharge: Labs from last 24 hours 11/06/23 11/05/23 05:55 19:20 Sodium 144 Potassium 3.7 3.9 Chloride 111 H Carbon Dioxide 24.0 Anion Gap 9.0 BUN 16 Creatinine 1.1 H D Est GFR (CKD-EPI 2020) 55.76 Glucose 103 Calcium 7.9 L Magnesium 1.6 L Preliminary micro results at discharge 11/04/23 11:20 Blood Culture - Preliminary Blood NO GROWTH 48 HOURS 11/04/23 10:30 Blood Culture - Preliminary Blood NO GROWTH 48 HOURS PFSH All Active Problems (Updated 11/05/23 @ 08:32 by JOHNNY Tsai) Renal carcinoma (Acute) Anemia (Chronic) Discharge planning issues (Acute) DVT prophylaxis (Acute) Breast cancer metastasized to axillary lymph node (Acute) Hypomagnesemia (Acute) Hypokalemia (Acute) Acute on chronic renal insufficiency (Acute) Diarrhea due to drug (Acute) Hypertension (Chronic) Medical History (Updated 11/05/23 @ 08:32 by JOHNNY Tsai) Renal cell carcinoma of left kidney Depression with anxiety Surgical History (Updated 11/04/23 @ 18:37 by Juancarlos Lynch) H/O left mastectomy H/O partial nephrectomy left, for RCC Social History (Updated 11/04/23 @ 18:38 by Juancarlos Lynch) Smoking/Tobacco Use Status: Never Smoking risk assessment performed?: Yes Alcohol Intake: never Drug use: Never Housing: house Additional Social history: lives with Jevon, who is supportive and helps care for her. Born in [place], grew up in [place] Time Spent with Patient Time Spent with Patient: 45-69 minutes Time was spent: preparing to see the patient(eg.review tests), obtaining and/or reviewing separately otained hiistory, ordering medications,tests, procedures, referring, communicating with other health transitional care manager, indepentently interpreting results, counseling the patient and care coordination
== END 2023-11-06 17:56 | disposition home or self-care (01) | DRG 683 ==
LOC: ER 16:30 → MS 11-05 08:32
PROVIDERS: Admitting Provider Family Medicine; Emergency Provider Physician Assistant; PCP Family Medicine; Visit Provider Family Medicine
DX: N17.9 Acute kidney failure, unspecified (principal); C77.3 Secondary and unspecified malignant neoplasm of axilla and upper limb lymph nodes; K52.1 Toxic gastroenteritis and colitis; N18.9 Chronic kidney disease, unspecified; I12.9 Hypertensive chronic kidney disease with stage 1 through stage 4 chronic kidney disease, or unspecified chronic kidney disease; E83.42 Hypomagnesemia; E87.6 Hypokalemia; I95.9 Hypotension, unspecified; C50.912 Malignant neoplasm of unspecified site of left female breast; Z90.5 Acquired absence of kidney; Z85.528 Personal history of other malignant neoplasm of kidney; Z79.899 Other long term (current) drug therapy; T45.1X5A Adverse effect of antineoplastic and immunosuppressive drugs, initial encounter; Z95.828 Presence of other vascular implants and grafts; D64.9 Anemia, unspecified
CPT/HCPCS: 00123; 36415; 51798; 80048; 80053; 82550; 82805; 85027; 86850; 86900; 86901; 87040; 87493; 87505; 93005; 96361; 96366; 74176; 81003; 81015; 82043; 82330; 82565; 83605; 83735; 84132; 84300; 85025; 85610; 93010; 99223; 99232; 99239; J1650; J3475; J3480

== ENCOUNTER 2023-11-18 04:55 | Outpatient (RCR) | payer OTHER, SELFPAY ==
[2023-11-04] MEDS: Normal Saline Flush 10 ML SYR IVP (08:18)
[2023-11-04 08:30] LABS: Abs Immature Grans 0.08 10^3/uL (0.0-0.06); Absolute Basophil Count 0.02 10^3/uL (0.0-0.2); Absolute Eosinophil Count 0.01 10^3/uL (0.0-0.7); Absolute Lymphocyte Count 0.36 10^3/uL (1.2-3.4); Absolute Monocyte Count 0.89 10^3/uL (0.1-0.8); Absolute Neutrophil Count 3.11 10^3/uL (1.2-6.7); Basophils % 0.4 %; Eosinophils % 0.2 %; HGB 8.7 g/dL (11.2-15.7); Immature Grans % 1.8 %; Lymphocytes % 8.1 %; MCH 26.7 pg (27.0-33.0); MCHC 33.5 % (32.0-36.0); MCV 80 fL (80-95); MPV 12.4 fL (8.0-11.0); Monocytes % 19.9 %; Neutrophils % 69.6 %; RBC 3.26 10^6/uL (3.93-5.22); RDW 15.8 % (11.7-14.6); RDW-SD 44.8 fL; WBC 4.47 10^3/uL (4.4-10.8)
[2023-11-04 08:45] LABS: ALT 14 U/L (14-59); AST 12 U/L (15-37); Albumin 2.9 g/dL (3.4-5.0); Alkaline Phosphatase 61 U/L (46-116); Anion Gap 15.4 mmol/L (3-11); BUN 34 mg/dL (7-18); Bilirubin, Total 0.2 mg/dL (0.2-1.0); CO2 21.6 mmol/L (21.0-32.0); CREATININE 3.2 mg/dL (0.55-1.02); Calcium 7.9 mg/dL (8.5-10.1); Chloride 103 mmol/L (98-107); Diff Comment Diff Reviewed; Estimated GFR 15.48 (mL/min/1.73m2); Glucose 118 mg/dL (74-106); Hypochromasia 2+; Platelet Count 169 10^3/uL (130-400); Sodium 140 mmol/L (136-145); Total Protein 6.6 g/dL (6.4-8.2)
[2023-11-04 08:46] LABS: Basophilic Stippling Present
[2023-11-04 08:51] LABS: Potassium 2.4 mmol/L (3.5-5.1)
[2023-11-11 09:12] LABS: Abs Immature Grans 0.04 10^3/uL (0.0-0.06); Absolute Basophil Count 0.06 10^3/uL (0.0-0.2); Absolute Eosinophil Count 0.01 10^3/uL (0.0-0.7); Absolute Lymphocyte Count 0.56 10^3/uL (1.2-3.4); Absolute Monocyte Count 0.77 10^3/uL (0.1-0.8); Absolute Neutrophil Count 2.75 10^3/uL (1.2-6.7); Basophils % 1.4 %; Eosinophils % 0.2 %; HCT 27.2 % (36.0-46.0); HGB 8.9 g/dL (11.2-15.7); Lymphocytes % 13.4 %; MCH 27.2 pg (27.0-33.0); MCHC 32.7 % (32.0-36.0); MCV 83 fL (80-95); MPV 10.7 fL (8.0-11.0); Monocytes % 18.4 %; Neutrophils % 65.6 %; Platelet Count 273 10^3/uL (130-400); RBC 3.27 10^6/uL (3.93-5.22); RDW 18.6 % (11.7-14.6); RDW-SD 55.6 fL; WBC 4.19 10^3/uL (4.4-10.8)
[2023-11-11] MEDS: Normal Saline Flush 10 ML SYR IVP (09:20)
[2023-11-11 09:37] LABS: ALT 14 U/L (14-59); AST 16 U/L (15-37); Albumin 2.6 g/dL (3.4-5.0); Alkaline Phosphatase 71 U/L (46-116); Anion Gap 11.2 mmol/L (3-11); BUN 14 mg/dL (7-18); Bilirubin, Total 0.2 mg/dL (0.2-1.0); CO2 24.8 mmol/L (21.0-32.0); CREATININE 1.3 mg/dL (0.55-1.02); Calcium 8.4 mg/dL (8.5-10.1); Chloride 106 mmol/L (98-107); Estimated GFR 45.63 (mL/min/1.73m2); Glucose 110 mg/dL (74-106); Potassium 4.2 mmol/L (3.5-5.1); Sodium 142 mmol/L (136-145)
[2023-11-18] MEDS: Normal Saline Flush 10 ML SYR IVP (08:48)
[2023-11-18 09:03] LABS: Abs Immature Grans 0.04 10^3/uL (0.0-0.06); Absolute Basophil Count 0.05 10^3/uL (0.0-0.2); Absolute Eosinophil Count 0.54 10^3/uL (0.0-0.7); Absolute Lymphocyte Count 0.64 10^3/uL (1.2-3.4); Absolute Monocyte Count 0.95 10^3/uL (0.1-0.8); Absolute Neutrophil Count 3.19 10^3/uL (1.2-6.7); Basophils % 0.9 %; HCT 30.7 % (36.0-46.0); Immature Grans % 0.7 %; Lymphocytes % 11.8 %; MCH 27.3 pg (27.0-33.0); MCHC 32.6 % (32.0-36.0); MCV 84 fL (80-95); MPV 11.8 fL (8.0-11.0); Monocytes % 17.6 %; Platelet Count 199 10^3/uL (130-400); RBC 3.66 10^6/uL (3.93-5.22); RDW 19.1 % (11.7-14.6); RDW-SD 58.2 fL; WBC 5.41 10^3/uL (4.4-10.8)
[2023-11-18 09:22] LABS: ALT 20 U/L (14-59); AST 28 U/L (15-37); Albumin 2.8 g/dL (3.4-5.0); Alkaline Phosphatase 89 U/L (46-116); Anion Gap 10.4 mmol/L (3-11); BUN 20 mg/dL (7-18); Bilirubin, Total 0.3 mg/dL (0.2-1.0); CO2 25.6 mmol/L (21.0-32.0); CREATININE 1.6 mg/dL (0.55-1.02); Calcium 9.4 mg/dL (8.5-10.1); Chloride 101 mmol/L (98-107); Estimated GFR 35.57 (mL/min/1.73m2); Glucose 118 mg/dL (74-106); Potassium 4.7 mmol/L (3.5-5.1); Sodium 137 mmol/L (136-145); Total Protein 6.5 g/dL (6.4-8.2)
== END 2023-11-28 23:59 | disposition home or self-care (01) ==
LOC: INF 04:55
PROVIDERS: PCP Family Medicine; Visit Provider Internal Medicine Hematology & Oncology
DX: C50.412 Malignant neoplasm of upper-outer quadrant of left female breast (principal); Z17.0 Estrogen receptor positive status [ER+]; Z45.2 Encounter for adjustment and management of vascular access device
CPT/HCPCS: 36591; 80053; 85025

== ENCOUNTER 2023-12-16 10:21 | Inpatient (IN) | payer OTHER, SELFPAY ==
[2023-12-16] VITALS (55 sets, daily range): BP systolic 97–151; BP diastolic 53–114; PULSE 76–122; RESP 13–30; TEMP 35.8–36.8; O2SAT 97–100
--- NOTE | 2023-12-16 10:30 | RT.EKG_ITS ---
APPROVED REPORT Exam: Resting ECG Reason for Exam: SOB Patient Location: E HR:99 bpm ECG Measurements Heart Rate 99 AXIS MI 138 P 71 QRSd 93 QRS 43 QT 458 T 36 QTc 587 Conclusion Sinus rhythm...normal P axis, V-rate 60- 99 Prolonged QT interval...QTc >500mS
--- NOTE | 2023-12-16 10:35 | ED.GENADUL_ITS ---
Discharge Plan Disposition Patient Disposition: Admit to [facility] Condition: Stable Discharge Details Clinical Impression: Urinary tract infection, Pneumonia, Hypokalemia Primary Care Provider: Rob Ziegler ED Provider: Ru Gallagher Home Meds and New Rx's Prescriptions: No Action lisinopril 20 mg tablet 20 mg PO HS Hold Instructions: Changed by Provider folic acid 1 mg tablet 1 mg PO HS citalopram 40 mg tablet 40 mg PO HS loratadine [Claritin] 10 mg tablet 10 mg PO HS fluticasone propionate 50 mcg/actuation spray,suspension INTRANASAL Patient Comments: INSTILL ONE SPRAY IN EACH NOSTRIL ONCE DAILY HPI General Date/Time Provider Initiated Documentation: 12/16/23 10:35 . HPI Narrative: 63 year-old female presents to ED today by POV/ambulating with a chief complaint of sent for abnormal labs- having shortness of breath as well since starting chemotherapy with onset for the past approximately two weeks. Patient is being treated for L breast CA with lymph spread, and renal cell cancer. Patient has a port. Quality described as generalized weakness, malaise, shortness of breath, no radiation to overt chest pain, diaphoresis, fever, abdominal pain, nausea/vomiting/diarrhea/black or bloody stools. Severity is described as severe. Palliating factors include nothing specific. Provoking factors include nothing specific. Events leading up to the incident/Associated Symptoms: Patient has baseline neuropathy and is concerned her feet become intermittently cold as well. Patient not anticoagulated. Related Data Home Medications Medication Instructions Recorded Confirmed citalopram 40 mg tablet 40 mg PO HS 11/04/23 12/16/23 folic acid 1 mg tablet 1 mg PO HS 11/04/23 12/16/23 lisinopril 20 mg tablet 20 mg PO HS 11/04/23 12/16/23 loratadine 10 mg tablet (Claritin) 10 mg PO HS 11/04/23 12/16/23 fluticasone propionate 50 intranasal 12/16/23 mcg/actuation nasal spray,suspension Allergies Allergy/AdvReac Type Severity Reaction Status Date / Time Penicillins Allergy Mild Skin Rash Verified 12/16/23 12:58 General Stated Complaint: GenMedical WILLIAM: 3 Review of Systems All systems reviewed & are unremarkable except as noted in HPI and below Exam Narrative Exam Narrative: GENERAL APPEARANCE: Obesity, frail, weak, toxic, awake and alert, atraumatic, no acute distress. SKIN: Warm, pale, dry, intact, without rashes/lesions/ulcerations. HEAD: Normocephalic, atraumatic, normal hair distribution for gender/age. EYES: Pupils PERRLA, EOMs intact without nystagmus, normal conjunctiva, no exudates on lids/lashes. ENT: Nares patent, no circumoral cyanosis, no facial swelling NECK: Supple, trachea midline, painless cervical ROM. LUNGS/CHEST: Lungs CTA bilaterally- no overt rhonchi/rales/wheezing, but difficult with patients body habitus, non-labored respirations, normal A/P diameter, symmetrical expansion, no chest wall deformity HEART (CV/PV): Regular rate and rhythm without murmur, no peripheral edema, no JVD. ABDOMEN: Soft, non-distended, no guarding, no tenderness. MSK: Normal ROM, no swelling/deformity to bilateral UEs or LEs, moving all extremities without weakness, no cyanosis, spine midline without tenderness, normal curvature. NEURO: Mental Status AAOx4 - alert to person, place, time, events No facial droop, no forehead involvement. Motor: No focal weakness - strength 5/5 in bilateral UEs and LEs, proximal and distal, symmetric. Sensory: sensation intact to light touch globally. Gait NT. PSYCH: euthymic, cooperative, pleasant, appropriate speech Course Vital Signs Vital signs: Vital Signs Temperature 36.4 C L 12/16/23 10:26 Pulse 109 H 12/16/23 10:26 Respiratory Rate 28 H 12/16/23 10:26 Blood Pressure 138/70 12/16/23 10:26 Pulse Oximetry 100 12/16/23 10:26 Temperature 36.4 C L 12/16/23 10:26 Temperature Source Temporal Artery Scan 12/16/23 10:26 Pulse 109 H 12/16/23 10:26 Respiratory Rate 28 H 12/16/23 10:26 Blood Pressure 138/70 12/16/23 10:26 Blood Pressure Position Sitting 12/16/23 10:26 Pulse Oximetry 100 12/16/23 10:26 Oxygen Delivery Method Room Air 12/16/23 10:26 Oxygen Flow Rate 0 12/16/23 10:26 Pain Level 3 12/16/23 10:26 Medical Decision Making This dictation utilizes [id number] dictation software and may contain unedited grammatical errors. 63 year-old female presents to ED today by POV/ambulating with a chief complaint of sent for abnormal labs- having shortness of breath as well since starting chemotherapy with onset for the past approximately two weeks. Patient is being treated for L breast CA with lymph spread, and renal cell cancer. Patient has a port. Quality described as generalized weakness, malaise, shortness of breath, no radiation to overt chest pain, diaphoresis, fever, abdominal pain, nausea/vomiting/diarrhea/black or bloody stools. Severity is described as severe. Palliating factors include nothing specific. Provoking factors include nothing specific. Events leading up to the incident/Associated Symptoms: Patient has baseline neuropathy and is concerned her feet become intermittently cold as well. Patients' medical history: Renal cell carcinoma, status post partial nephrectomy, breast cancer metastasized to axillary lymph node, hypertension, denies cardiac history. Family and social history: lives at home with . Pertinent exam findings / vital signs include benign abdomen appears frail and weak, has baseline obesity no rales at bases of lungs, toxic vitals on arrival Differential / pathologies of concern include [ ]. Diagnostic studies of: -CBC, CMP, lipase, magnesium, urinalysis, troponin I, BNP, procalcitonin, urinalysis, COVID/flu/RSV PCR, blood cultures, EKG, XR chest. -CBC shows no leukocytosis but patient is immune suppressed, has baseline anemia -Lactate 1.4, procalcitonin negative-do not suspect sepsis at this time -CMP shows significant SURY with creatinine of 1.8 and elevated BUN to 27, severe hypokalemia at 2.9 warranting IV repletion, mildly low calcium improved from last draw -Magnesium 1.6 -BNP is elevated at 479 possible renal cause -Initial troponin 67, repeat pending -Urinalysis shows positive nitrates and greater than 50 WBCs, suspect severe UTI -COVID/flu/RSV negative -Sinus rhythm at 99 bpm with P waves followed by narrow complex QRS normal axis, good R wave progression, some ST depression in lateral leads, slightly prolonged QT-consistent with prior -XR chest shows likely L lower lobe infiltrate- PNA, will cover UTI and PNA with Ceftriaxone, Azithro to follow from in-patient unit Interventions of: -IV fluids, magnesium and potassium repletion, IV Tylenol and Toradol, 1 g IV ceftriaxone given empirically. -Consult Hospitalist for admission- UTI in immune suppression, SURY, Severe electrolyte derangements, Pneumonia- Dr. Stark accepted with stable repeat troponin. ED Course/Assessment/Plan: 63-year-old female presents with toxic vital signs, is on active Taxol therapy for breast cancer with axillary lymph node spread as well as renal cell carcinoma that is status postresection. She has had severe malaise for the past 2 weeks and had outpatient labs drawn showing severe electrolyte derangements by primary care. She has evidence of severe UTI, critical hypokalemia as well as a pneumonia on chest x-ray likely warranting admission for IV antibiotics due to the patient's immune suppressed status. She did have an initial troponin of 67 with repeat pending at time of presentation for admission, accepted for admission by Dr. Stark at 1400 hrs pending repeat troponin is stable. I suspect this is likely due to renal source with the patient's worsening SURY over the past week compared to outpatient labs. Patient had received IV magnesium and potassium as well as IV fluids at 150 mL/h here in the department as well as 1 g of ceftriaxone, have not given azithromycin yet for pneumonia. Patient is not oxygen dependent at this time. Disposition of Urinary Tract Infection, Pneumonia, Hypokalemia. Patient verbalized understanding of the plan and return to ED criteria and engaged in shared decision making. Medical Records Medical records reviewed: Yes I reviewed the patient's medical records. Imaging Data Radiologic Study: Attestation: I personally reviewed and interpreted this imaging study as follows: Imaging: X-Ray Radiologist's impression: EXAM: XR PORTABLE CHEST AP CLINICAL HISTORY: shortness of breath. TECHNIQUE: 2D digital imaging was performed. COMPARISON: No exams were available for comparison FINDINGS: Single AP portable view. There is a right-sided Port-A-Cath. Distal tip is in the SVC. Heart size is upper normal. The mediastinum is not widened. Right lung is clear. However, there appears to be some infiltrate in the left lower lobe behind the left side of the heart with silhouetting of the hemidiaphragm. Also slight blunting of left costophrenic angle IMPRESSION: Probable left lower lobe infiltrate. Small left pleural effusion possible. Right lung clear. Port-A-Cath in good position in the SVC. Lab Data Lab results reviewed: Yes I reviewed the patient's lab results. Labs: 12/16/23 12:07 Urine - Reflex from Ua Urine Culture - Pending 12/16/23 10:47 Blood Blood Culture - Pending 12/16/23 10:47 Blood Blood Culture - Pending Laboratory Tests Range/Units 12/16/23 12/16/23 12/16/23 11:35 11:54 12:07 WBC (4.4-10.8) 10^3/uL 8.15 RBC (3.93-5.22) 10^6/uL 3.13 L Hgb (11.2-15.7) g/dL 9.1 L Hct (36.0-46.0) % 28.0 L MCV (80-95) fL 90 MCH (27.0-33.0) pg 29.1 MCHC (32.0-36.0) % 32.5 RDW (11.7-14.6) % 17.4 H Plt Count (130-400) 10^3/uL 212 MPV (8.0-11.0) fL 11.3 H Immature Gran % % 2.3 Neutrophils % % 79.9 Lymphocytes % % 5.8 Monocytes % % 10.8 Eosinophils % % 0.7 Basophils % % 0.5 Nucleated RBC % (0.0-0.3) % 0.0 Absolute Neutrophils (1.2-6.7) 10^3/uL 6.51 Absolute Lymphocytes (1.2-3.4) 10^3/uL 0.47 L Absolute Monocytes (0.1-0.8) 10^3/uL 0.88 H Absolute Eosinophils (0.0-0.7) 10^3/uL 0.06 Absolute Basophils (0.0-0.2) 10^3/uL 0.04 VBG Lactate (0.9-1.7) mmol/L 1.4 Sodium (136-145) mmol/L 139 Potassium (3.5-5.1) mmol/L 2.9 L* Chloride (98-107) mmol/L 102 Carbon Dioxide (21.0-32.0) mmol/L 25.6 Anion Gap (3-11) mmol/L 11.4 H BUN (7-18) mg/dL 27 H Creatinine (0.55-1.02) mg/dL 1.8 H Est GFR (CKD-EPI 2020) (mL/min/1.73m2) 30.88 Glucose (74-106) mg/dL 107 H Calcium (8.5-10.1) mg/dL 8.3 L Magnesium (1.8-2.4) mg/dL 1.6 L Total Bilirubin (0.2-1.0) mg/dL 0.5 AST (15-37) U/L 16 ALT (14-59) U/L 15 Alkaline Phosphatase (46-116) U/L 80 Troponin I (< or =60) ng/L 67 H* NT-Pro-B Natriuret Pep (<300) pg/mL 479 H Total Protein (6.4-8.2) g/dL 5.9 L Albumin (3.4-5.0) g/dL 2.6 L Lipase (16-77) U/L 17 Procalcitonin ng/mL 0.1 Urine Color (Yellow) Yellow Urine Clarity (Clear) Sl Cloudy Urine pH (5-8) 5.5 Ur Specific [place] (1.005-1.025) 1.025 Urine Protein (Neg-Trace) mg/dL 100 H Urine Ketones (Negative) mg/dL Trace H Urine Blood (Negative) Small H Urine Nitrite (Negative) Positive H Urine Bilirubin (Negative) Negative Urine Urobilinogen (Up to 0.2) mg/dL 0.2 Ur Leukocyte Esterase (Negative) Moderate H Urine RBC Not Applicable Urine WBC (0-5) HPF >50 H Ur Epithelial Cells Not Applicable Urine Crystals Not Applicable Urine Bacteria Not Applicable Urine Mucus Not Applicable Ur Culture Indicated? Yes Urine Glucose (Negative) mg/dL Negative COVID-19 Source Nasopharynx SARS-CoV-2 (PCR) (Negative) Negative Influenza Type A (PCR) (Negative) Negative Influenza Type B (PCR) (Negative) Negative RSV (PCR) (Negative) Negative Quality:SDOH Health Related Social Needs: No Data to Display PFSH All Active Problems (Updated 12/16/23 @ 14:40 by JOHNNY Maya) Hypokalemia (Acute) Pneumonia (Acute) Urinary tract infection (Acute) Anemia (Chronic) Discharge planning issues (Acute) Breast cancer metastasized to axillary lymph node (Acute) Diarrhea due to drug (Acute) Hypertension (Chronic) Medical History (Updated 12/16/23 @ 14:40 by JOHNNY Maya) Renal carcinoma Renal cell carcinoma of left kidney Depression with anxiety Surgical History (Updated 11/04/23 @ 18:37 by Juancarlos Lynch) H/O left mastectomy H/O partial nephrectomy left, for RCC Social History (Updated 11/04/23 @ 18:38 by Juancarlos Lynch) Smoking/Tobacco Use Status: Never Smoking risk assessment performed?: Yes Alcohol Intake: never Drug use: Never Housing: house Do you feel safe at home: Yes Do you feel safe in your relationship?: Yes Additional Social history: lives with Jevon, who is supportive and helps care for her. Born in [place], grew up in [place]
[2023-12-16] MEDS: MAGNESIUM SULFATE 2 GM/50 ML BAG IVINF (11:18)
--- NOTE | 2023-12-16 11:22 | DI.RAD_ITS ---
Exam(s) XR PORTABLE CHEST AP EXAM: XR PORTABLE CHEST AP CLINICAL HISTORY: shortness of breath. TECHNIQUE: 2D digital imaging was performed. COMPARISON: No exams were available for comparison FINDINGS: Single AP portable view. There is a right-sided Port-A-Cath. Distal tip is in the SVC. Heart size is upper normal. The mediastinum is not widened. Right lung is clear. However, there appears to be some infiltrate in the left lower lobe behind the left side of the heart with silhouetting of the hemidiaphragm. Also slight blunting of left costophr enic angle IMPRESSION: Probable left lower lobe infiltrate. Small left pleural effusion possible. Right lung clear. Port-A-Cath in good position in the SVC. DATA REPOSITORY: RADIATION DOSE DELIVERED:
[2023-12-16] MEDS: POTASSIUM CHLORIDE 20 MEQ/100 ML BAG 50 MEQ IVINF (11:23)
[2023-12-16 12:03] LABS: Abs Immature Grans 0.19 10^3/uL (0.0-0.06); Absolute Basophil Count 0.04 10^3/uL (0.0-0.2); Absolute Eosinophil Count 0.06 10^3/uL (0.0-0.7); Absolute Lymphocyte Count 0.47 10^3/uL (1.2-3.4); Absolute Monocyte Count 0.88 10^3/uL (0.1-0.8); Absolute Neutrophil Count 6.51 10^3/uL (1.2-6.7); Basophils % 0.5 %; Eosinophils % 0.7 %; HGB 9.1 g/dL (11.2-15.7); Immature Grans % 2.3 %; Lymphocytes % 5.8 %; MCH 29.1 pg (27.0-33.0); MCHC 32.5 % (32.0-36.0); MCV 90 fL (80-95); MPV 11.3 fL (8.0-11.0); Monocytes % 10.8 %; Neutrophils % 79.9 %; Platelet Count 212 10^3/uL (130-400); RBC 3.13 10^6/uL (3.93-5.22); RDW 17.4 % (11.7-14.6); RDW-SD 57.1 fL; WBC 8.15 10^3/uL (4.4-10.8)
[2023-12-16 12:05] LABS: Lactate 1.4 mmol/L (0.9-1.7)
[2023-12-16 12:20] LABS: Bilirubin Negative (Negative); Blood Small (Negative); Clarity Sl Cloudy (Clear); Glucose Negative (Negative); Ketones Trace mg/dL (Negative); Leukocyte Esterase Moderate (Negative); Nitrite Positive (Negative); Specific Gravity 1.025 (1.005-1.025); Urobilinogen 0.2 mg/dL (Up to 0.2); pH 5.5 (5-8)
[2023-12-16] MEDS: Normal Saline 1,000 ML 150 ML IV ×2 (12:26→20:12)
[2023-12-16 12:27] LABS: ALT 15 U/L (14-59); AST 16 U/L (15-37); Albumin 2.6 g/dL (3.4-5.0); Alkaline Phosphatase 80 U/L (46-116); Anion Gap 11.4 mmol/L (3-11); BUN 27 mg/dL (7-18); Bilirubin, Total 0.5 mg/dL (0.2-1.0); CO2 25.6 mmol/L (21.0-32.0); CREATININE 1.8 mg/dL (0.55-1.02); Calcium 8.3 mg/dL (8.5-10.1); Chloride 102 mmol/L (98-107); Estimated GFR 30.88 (mL/min/1.73m2); Glucose 107 mg/dL (74-106); Lipase 17 U/L (16-77); Magnesium 1.6 mg/dL (1.8-2.4); NT-proBNP 479 pg/mL (<300); Sodium 139 mmol/L (136-145); Total Protein 5.9 g/dL (6.4-8.2)
[2023-12-16 12:29] LABS: Potassium 2.9 mmol/L (3.5-5.1); Troponin I 67 ng/L (< or =60)
[2023-12-16] MEDS: POTASSIUM CHLORIDE 20 MEQ/100 ML BAG 100 MEQ IVINF (12:34)
[2023-12-16 12:35] LABS: Procalcitonin 0.1 ng/mL
[2023-12-16 12:40] LABS: C & S Indicated? Yes; WBC >50 HPF (0-5)
[2023-12-16 12:41] LABS: COVID-19 PCR Negative (Negative); Influenza A PCR Negative (Negative); Influenza B PCR Negative (Negative); RSV PCR Negative (Negative)
[2023-12-16 13:40] LABS: Source Nasopharynx
[2023-12-16] MEDS: cefTRIAXone 1 GM/50 ML BAG IVPB (13:48)
--- NOTE | 2023-12-16 13:57 | W.PM.HP.N ---
Date of service: 12/16/23 Time of Service: 15:55 Assessment and Plan Assessment and plan (1) Severe sepsis: Status: Acute Assessment and plan: -On admission patient meets criteria for severe sepsis with heart rate of 109, respiratory rate in the high 20s low 30s, source of infection being both urinary tract as well as community-acquired pneumonia, and elevated troponin suggestive of type II NSTEMI -Patient was started ceftriaxone in the emergency department, will continue -Will also add azithromycin for community-acquired pneumonia -Patient with normal lactic and normal blood pressures -Follow-up urine cultures -blood cultures were not obtained in the ED prior to administration of antibiotics, attempted to draw cultures on Med/Surg but patient refused as staff had difficult time with blood draw -Follow-up a.m. CBC (2) CAP (community acquired pneumonia): Status: Acute Assessment and plan: - As noted above (3) UTI (urinary tract infection): Status: Acute Assessment and plan: - As noted above (4) Demand ischemia: Status: Acute Assessment and plan: - Patient without chest pain without EKG changes -Initial troponin was 67 with repeat of 65 -Likely secondary to demand ischemia in the setting of severe sepsis as noted above -Will repeat a.m. troponin (5) Hypokalemia: Status: Acute Assessment and plan: - Likely secondary to poor p.o. intake due to chemotherapy -Was initially 2.5 in the emergency department, increased to 2.9 after repletion -Will give additional 40 mEq IV -Follow-up a.m. BMP (6) Breast cancer metastasized to axillary lymph node: Status: Acute Assessment and plan: - Recommend ongoing close follow-up with outpatient oncology History of Present Illness History of Present Illness Chief Complaint: Shortness of breath Narrative: 63-year-old female with past medical history of anemia, and metastatic breast cancer currently on chemotherapy presented to the emergency department complaints of shortness of breath. Patient states that her shortness of breath began about 2 weeks ago since starting her chemotherapy for left breast cancer with lymphatic spread as well as renal cell cancer. She also states that she has felt generalized weakness, malaise, but denies any chest pain, diaphoresis, fever, abdominal pain, nausea vomiting or diarrhea. However, she does states she has had poor p.o. intake. In the emergency department the patient was noted as being tachycardic with heart rate of 109, afebrile, tachypneic with a respiratory rate of 30, normotensive with blood pressures in the 120s to 130s systolic. Physical exam was unremarkable with the exception of baseline obesity. CBC was unremarkable, BMP showed potassium of 2.5, BUN of 26, creatinine of 1.7 (recent baseline 1.6), patient was noted as having initial troponin of 67 without EKG changes and a repeat troponin of 65. UA was obtained and was highly suggestive of urinary tract infection for which the patient was started on ceftriaxone. Additionally, chest x-ray showed probable left lower lobe infiltrate, with small left pleural effusion. Patient was also given IV potassium for replacement with repeat increasing up to 2.9. At which time emergency room PA paged hospitalist for admission for patient with severe sepsis secondary to combination of UTI and left lower lobe pneumonia with associated SURY and hypokalemia. Review of Systems All systems reviewed & are unremarkable except as noted in HPI and below PFSH All Active Problems (Updated 12/16/23 @ 16:02 by Tommy Stark MD) Demand ischemia (Acute) UTI (urinary tract infection) (Acute) CAP (community acquired pneumonia) (Acute) Severe sepsis (Acute) Hypokalemia (Acute) Pneumonia (Acute) Urinary tract infection (Acute) Anemia (Chronic) Discharge planning issues (Acute) Breast cancer metastasized to axillary lymph node (Acute) Diarrhea due to drug (Acute) Hypertension (Chronic) Medical History (Updated 12/16/23 @ 16:02 by Tommy Stark MD) Renal carcinoma Renal cell carcinoma of left kidney Depression with anxiety Surgical History (Updated 11/04/23 @ 18:37 by Juancarlos Lynch) H/O left mastectomy H/O partial nephrectomy left, for RCC Social History (Updated 11/04/23 @ 18:38 by Juancarlos Lynch) Smoking/Tobacco Use Status: Never Smoking risk assessment performed?: Yes Alcohol Intake: never Drug use: Never Housing: house Do you feel safe at home: Yes Do you feel safe in your relationship?: Yes Additional Social history: lives with Jevon, who is supportive and helps care for her. Born in [place], grew up in [place] Meds Allergies and Home Medications Allergies Allergy/AdvReac Type Severity Reaction Status Date / Time Penicillins Allergy Mild Skin Rash Verified 12/16/23 12:58 Home Medications Medication Instructions Recorded Confirmed Type citalopram 40 mg tablet 40 mg PO HS 11/04/23 12/16/23 History folic acid 1 mg tablet 1 mg PO HS 11/04/23 12/16/23 History lisinopril 20 mg tablet 20 mg PO HS 11/04/23 12/16/23 History loratadine 10 mg tablet (Claritin) 10 mg PO HS 11/04/23 12/16/23 History fluticasone propionate 50 intranasal 12/16/23 History mcg/actuation nasal spray,suspension Exam Narrative Exam Narrative: Frail-appearing older female laying in bed in no acute distress, ANO x 4, heart regular rate rhythm, lungs with minimally diminished breath sounds in left lower lobe, abdomen obese, soft, nontender, nondistended Results Labs 12/16/23 11:54 12/16/23 11:54 Labs: Laboratory Results - last 24 hr 12/16/23 12/16/23 12/16/23 11:35 11:54 12:07 WBC 8.15 RBC 3.13 L Hgb 9.1 L Hct 28.0 L MCV 90 MCH 29.1 MCHC 32.5 RDW 17.4 H Plt Count 212 MPV 11.3 H Immature Gran % 2.3 Neutrophils % 79.9 Lymphocytes % 5.8 Monocytes % 10.8 Eosinophils % 0.7 Basophils % 0.5 Nucleated RBC % 0.0 Absolute Neutrophils 6.51 Absolute Lymphocytes 0.47 L Absolute Monocytes 0.88 H Absolute Eosinophils 0.06 Absolute Basophils 0.04 VBG Lactate 1.4 Sodium 139 Potassium 2.9 L* Chloride 102 Carbon Dioxide 25.6 Anion Gap 11.4 H BUN 27 H Creatinine 1.8 H Est GFR (CKD-EPI 2020) 30.88 Glucose 107 H Calcium 8.3 L Magnesium 1.6 L Total Bilirubin 0.5 AST 16 ALT 15 Alkaline Phosphatase 80 Troponin I 67 H* NT-Pro-B Natriuret Pep 479 H Total Protein 5.9 L Albumin 2.6 L Lipase 17 Procalcitonin 0.1 Urine Color Yellow Urine Clarity Sl Cloudy Urine pH 5.5 Ur Specific [place] 1.025 Urine Protein 100 H Urine Ketones Trace H Urine Blood Small H Urine Nitrite Positive H Urine Bilirubin Negative Urine Urobilinogen 0.2 Ur Leukocyte Esterase Moderate H Urine RBC Not Applicable Urine WBC >50 H Ur Epithelial Cells Not Applicable Urine Crystals Not Applicable Urine Bacteria Not Applicable Urine Mucus Not Applicable Ur Culture Indicated? Yes Urine Glucose Negative COVID-19 Source Nasopharynx SARS-CoV-2 (PCR) Negative Influenza Type A (PCR) Negative Influenza Type B (PCR) Negative RSV (PCR) Negative Last Vital Signs Temp 98.2 F 12/16/23 12:07 Pulse 90 12/16/23 13:00 Resp 16 12/16/23 13:00 BP 148/84 H 12/16/23 13:00 Pulse Ox 98 12/16/23 12:07 Time Spent Time spent with Patient: >75 minutes Time was spent: preparing to see the patient(eg.review tests), obtaining and/or reviewing separately otained hiistory, ordering medications,tests, procedures, referring, communicating with other health animal daycare provider, indepentently interpreting results and care coordination
--- NOTE | 2023-12-16 15:04 | W.PC.ACHO ---
Registration Status: REG ER Primary Language: Preferred Language: ED Information & Data Chief Complaint GenMedical 12/16/23 11:36 Chief Complaint GenMedical 12/16/23 10:36 Triage Note patient here with L breast 12/16/23 10:26 cancer being tx w/taxol (2nd dose today), renal cell ca. Accessed port. patient SOB since cancer tx began. Here due to labs drawn today. K+ 2.5, mg, Mg 1.3. Not taking much po including the mag and potassium. Medical / Surgical History (Last Updated 11/04/23 @ 18:47 by Juancarlos Lynch) Renal carcinoma Renal cell carcinoma of left kidney Depression with anxiety (Last Updated 11/04/23 @ 18:37 by Juancarlos Lynch) H/O left mastectomy H/O partial nephrectomy Most Recent Vital Signs Temperature 36.8 C 12/16/23 12:07 Temperature Source Oral 12/16/23 12:07 Pulse 87 12/16/23 14:16 Pulse 89 12/16/23 14:16 Respiratory Rate 16 12/16/23 14:16 Respiratory Effort Normal, Non-Labored 12/16/23 11:36 Respiratory Depth Normal 12/16/23 11:36 Respiratory Pattern Normal 12/16/23 11:36 Blood Pressure 145/106 H 12/16/23 14:16 Blood Pressure Mean 117 12/16/23 14:16 Blood Pressure Position Sitting 12/16/23 12:07 Pulse Oximetry 98 12/16/23 12:07 Oxygen Delivery Method Room Air 12/16/23 11:36 Oxygen Flow Rate 0 12/16/23 10:26 Pain Level 3 12/16/23 10:26 Allergies Penicillins Allergy (Mild, Verified 12/16/23 12:58) Skin Rash Precautions Isolation Standard precaution 12/16/23 11:36 Active Medications Generic Name Dose Route Start Last Admin Trade Name Freq PRN Reason Stop Dose Admin Potassium Chloride 20 meq in 100 mls @ 50 mls/hr 12/16/23 11:00 12/16/23 13:34 IVINF 12/16/23 14:59 Infused Q2H RAJWINDER Infusion Sodium Chloride 1,000 mls @ 150 mls/hr 12/16/23 11:00 12/16/23 12:26 Saline 1000ml Bag IV 150 mls/hr INFUSION RAJWINDER Administration IV IV Catheter Type [Right Saline Lock Proximal Port] Diagnostics 12/16/23 12/16/23 12/16/23 Range/Units 14:50 12:07 11:54 WBC 8.15 (4.4-10.8) 10^3/uL RBC 3.13 L (3.93-5.22) 10^6/uL Hgb 9.1 L (11.2-15.7) g/dL Hct 28.0 L (36.0-46.0) % MCV 90 (80-95) fL MCH 29.1 (27.0-33.0) pg MCHC 32.5 (32.0-36.0) % RDW 17.4 H (11.7-14.6) % Plt Count 212 (130-400) 10^3/uL MPV 11.3 H (8.0-11.0) fL Immature Gran % 2.3 % Neutrophils % 79.9 % Lymphocytes % 5.8 % Monocytes % 10.8 % Eosinophils % 0.7 % Basophils % 0.5 % Nucleated RBC % 0.0 (0.0-0.3) % Absolute Neutrophils 6.51 (1.2-6.7) 10^3/uL Absolute Lymphocytes 0.47 L (1.2-3.4) 10^3/uL Absolute Monocytes 0.88 H (0.1-0.8) 10^3/uL Absolute Eosinophils 0.06 (0.0-0.7) 10^3/uL Absolute Basophils 0.04 (0.0-0.2) 10^3/uL VBG Lactate 1.4 (0.9-1.7) mmol/L Sodium 139 (136-145) mmol/L Potassium 2.9 L* (3.5-5.1) mmol/L Chloride 102 (98-107) mmol/L Carbon Dioxide 25.6 (21.0-32.0) mmol/L Anion Gap 11.4 H (3-11) mmol/L BUN 27 H (7-18) mg/dL Creatinine 1.8 H (0.55-1.02) mg/dL Est GFR (CKD-EPI 2020) 30.88 (mL/min/1.73m2) Glucose 107 H (74-106) mg/dL Calcium 8.3 L (8.5-10.1) mg/dL Magnesium 1.6 L (1.8-2.4) mg/dL Total Bilirubin 0.5 (0.2-1.0) mg/dL AST 16 (15-37) U/L ALT 15 (14-59) U/L Alkaline Phosphatase 80 (46-116) U/L Troponin I Pending 67 H* (< or =60) ng/L NT-Pro-B Natriuret Pep 479 H (<300) pg/mL Total Protein 5.9 L (6.4-8.2) g/dL Albumin 2.6 L (3.4-5.0) g/dL Lipase 17 (16-77) U/L Procalcitonin 0.1 ng/mL Urine Color Yellow (Yellow) Urine Clarity Sl Cloudy (Clear) Urine pH 5.5 (5-8) Ur Specific [place] 1.025 (1.005-1.025) Urine Protein 100 H (Neg-Trace) mg/dL Urine Ketones Trace H (Negative) mg/dL Urine Blood Small H (Negative) Urine Nitrite Positive H (Negative) Urine Bilirubin Negative (Negative) Urine Urobilinogen 0.2 (Up to 0.2) mg/dL Ur Leukocyte Esterase Moderate H (Negative) Urine RBC Not Applicable Urine WBC >50 H (0-5) HPF Ur Epithelial Cells Not Applicable Urine Crystals Not Applicable Urine Bacteria Not Applicable Urine Mucus Not Applicable Ur Culture Indicated? Yes Urine Glucose Negative (Negative) mg/dL COVID-19 Source SARS-CoV-2 (PCR) (Negative) Influenza Type A (PCR) (Negative) Influenza Type B (PCR) (Negative) RSV (PCR) (Negative) 12/16/23 Range/Units 11:35 WBC (4.4-10.8) 10^3/uL RBC (3.93-5.22) 10^6/uL Hgb (11.2-15.7) g/dL Hct (36.0-46.0) % MCV (80-95) fL MCH (27.0-33.0) pg MCHC (32.0-36.0) % RDW (11.7-14.6) % Plt Count (130-400) 10^3/uL MPV (8.0-11.0) fL Immature Gran % % Neutrophils % % Lymphocytes % % Monocytes % % Eosinophils % % Basophils % % Nucleated RBC % (0.0-0.3) % Absolute Neutrophils (1.2-6.7) 10^3/uL Absolute Lymphocytes (1.2-3.4) 10^3/uL Absolute Monocytes (0.1-0.8) 10^3/uL Absolute Eosinophils (0.0-0.7) 10^3/uL Absolute Basophils (0.0-0.2) 10^3/uL VBG Lactate (0.9-1.7) mmol/L Sodium (136-145) mmol/L Potassium (3.5-5.1) mmol/L Chloride (98-107) mmol/L Carbon Dioxide (21.0-32.0) mmol/L Anion Gap (3-11) mmol/L BUN (7-18) mg/dL Creatinine (0.55-1.02) mg/dL Est GFR (CKD-EPI 2020) (mL/min/1.73m2) Glucose (74-106) mg/dL Calcium (8.5-10.1) mg/dL Magnesium (1.8-2.4) mg/dL Total Bilirubin (0.2-1.0) mg/dL AST (15-37) U/L ALT (14-59) U/L Alkaline Phosphatase (46-116) U/L Troponin I (< or =60) ng/L NT-Pro-B Natriuret Pep (<300) pg/mL Total Protein (6.4-8.2) g/dL Albumin (3.4-5.0) g/dL Lipase (16-77) U/L Procalcitonin ng/mL Urine Color (Yellow) Urine Clarity (Clear) Urine pH (5-8) Ur Specific [place] (1.005-1.025) Urine Protein (Neg-Trace) mg/dL Urine Ketones (Negative) mg/dL Urine Blood (Negative) Urine Nitrite (Negative) Urine Bilirubin (Negative) Urine Urobilinogen (Up to 0.2) mg/dL Ur Leukocyte Esterase (Negative) Urine RBC Urine WBC (0-5) HPF Ur Epithelial Cells Urine Crystals Urine Bacteria Urine Mucus Ur Culture Indicated? Urine Glucose (Negative) mg/dL COVID-19 Source Nasopharynx SARS-CoV-2 (PCR) Negative (Negative) Influenza Type A (PCR) Negative (Negative) Influenza Type B (PCR) Negative (Negative) RSV (PCR) Negative (Negative) 12/16/23 12:07 Urine Culture - Pending Urine - Reflex from Ua 12/16/23 10:47 Blood Culture - Pending Blood 12/16/23 10:47 Blood Culture - Pending Blood Intake and Output - 24 Hour Total 12/16/23 10:21 thru 12/16/23 13:34 Intake Total 250.000 Balance 250.000 Weight 119.748 kg Intake: IV 250.000 Falls Risk Assessment History of Falls No History 12/16/23 11:36 Fall Total Score 0 12/16/23 11:36 Level of Risk Standard/Low Risk 12/16/23 11:36 v v v v v v v v v Sending and/or Receiving Nurses: Please use comment section below to note any information pertinent to the patient hand-off not included above. Information / Comments: Pleasant female, presented from cancer center with abnormal labs, increasing SOB over a few weeks. Pale and weak during stay. 40 mEq and 2grams of Mag given. Report received from: Emperatriz Delgado, Side Laster Staple
[2023-12-16 15:19] LABS: Troponin I 65 ng/L (< or =60)
[2023-12-16] MEDS: Enoxaparin 40 MG/0.4 ML SYR SC (15:53)
[2023-12-16] MEDS: POTASSIUM CHLORIDE 10 MEQ/100 ML BAG 100 MEQ IVINF ×4 (17:11→22:12)
[2023-12-16] MEDS: Azithromycin 250 MG TAB 500 MG PO (17:12)
[2023-12-16] MEDS: Loratidine 10 MG TAB PO (19:35)
[2023-12-16] MEDS: Citalopram 20 MG TAB PO (19:35)
[2023-12-16] MEDS: Folic Acid 1 MG TAB PO (19:35)
[2023-12-16] MEDS: Normal Saline Flush 10 ML SYR IVP (19:36)
[2023-12-17] MEDS: Acetaminophen 325 MG TAB PO (02:01)
[2023-12-17] MEDS: Normal Saline 1,000 ML 150 ML IV (02:48)
[2023-12-17 03:35] VITALS: BP 120/63; PULSE 68; RESP 18; TEMP 37; O2SAT 96
[2023-12-17] MEDS: Normal Saline Flush 10 ML SYR IVP ×4 (06:46→20:26)
[2023-12-17 07:17] VITALS: BP 119/61; PULSE 94; RESP 18; TEMP 36; O2SAT 98
[2023-12-17 07:19] LABS: HCT 22.4 % (36.0-46.0); MCH 29.5 pg (27.0-33.0); MCHC 32.1 % (32.0-36.0); MCV 92 fL (80-95); MPV 11.4 fL (8.0-11.0); Platelet Count 180 10^3/uL (130-400); RBC 2.44 10^6/uL (3.93-5.22); RDW-SD 59.8 fL; WBC 6.28 10^3/uL (4.4-10.8)
[2023-12-17 07:39] LABS: Anion Gap 11.9 mmol/L (3-11); BUN 27 mg/dL (7-18); CO2 22.1 mmol/L (21.0-32.0); CREATININE 1.8 mg/dL (0.55-1.02); Calcium 7.8 mg/dL (8.5-10.1); Chloride 107 mmol/L (98-107); Estimated GFR 30.88 (mL/min/1.73m2); Glucose 99 mg/dL (74-106); Magnesium 1.6 mg/dL (1.8-2.4); Sodium 141 mmol/L (136-145)
[2023-12-17 07:44] LABS: HGB 7.2 g/dL (11.2-15.7); RDW 17.8 % (11.7-14.6)
[2023-12-17 07:46] LABS: Potassium 2.9 mmol/L (3.5-5.1)
[2023-12-17] MEDS: Doxycycline Hyclate 100 MG CAP PO ×2 (08:37→20:25)
[2023-12-17] MEDS: POTASSIUM CHLORIDE 10 MEQ/100 ML BAG 100 MEQ IVINF ×4 (08:38→12:02)
--- NOTE | 2023-12-17 09:26 | PGE_ITS ---
Date of Service Date of service: 12/17/23 Time of Service: 09:26 Assessment and Plan Assessment and plan (1) Severe sepsis: Status: Acute Assessment and plan: -On admission patient meets criteria for severe sepsis with heart rate of 109, respiratory rate in the high 20s low 30s, source of infection being both urinary tract as well as community-acquired pneumonia, and elevated troponin suggestive of type II NSTEMI -Patient was started ceftriaxone in the emergency department, will continue -started on doxy on admission, will continue -Patient with normal lactic and normal blood pressures -Follow-up urine cultures -blood cultures were not obtained in the ED prior to administration of antibiotics, attempted to draw cultures on Med/Surg but patient refused as staff had difficult time with blood draw -Follow-up a.m. CBC (2) CAP (community acquired pneumonia): Status: Acute Assessment and plan: - As noted above (3) UTI (urinary tract infection): Status: Acute Assessment and plan: - As noted above (4) Demand ischemia: Status: Acute Assessment and plan: - Patient without chest pain without EKG changes -Initial troponin was 67 with repeat of 65 -Likely secondary to demand ischemia in the setting of severe sepsis as noted above (5) Hypokalemia: Status: Acute Assessment and plan: - Likely secondary to poor p.o. intake due to chemotherapy -Was initially 2.5 in the emergency department, increased to 2.9 after repletion -additional 40 mEq IV on admission 12/15 -AM K again 2.5, another 40mEq K IV ordered -f/u afternoon BMP (6) Breast cancer metastasized to axillary lymph node: Status: Acute Assessment and plan: - Recommend ongoing close follow-up with outpatient oncology Subjective Subjective Interval history since last seen: Patient states that she is feeling a little bit better today though she did not have a very good night sleep due to restlessness, and peripheral neuropathy in her feet and hands that are likely secondary to ongoing hypokalemia and chemotherapy. Otherwise patient has no other complaints or concerns at this time. Exam Narrative Exam Narrative: Frail-appearing older female laying in bed in no acute distress, ANO x 4, heart regular rate rhythm, lungs with minimally diminished breath sounds in left lower lobe, abdomen obese, soft, nontender, nondistended Objective Last Vital Signs Temp 96.8 F L 12/17/23 07:17 Pulse 94 H 12/17/23 07:17 Resp 18 12/17/23 07:17 BP 119/61 12/17/23 07:17 Pulse Ox 98 12/17/23 07:17 Laboratory Results - last 24 hr 12/16/23 12/16/23 12/16/23 11:35 11:54 12:07 WBC 8.15 RBC 3.13 L Hgb 9.1 L Hct 28.0 L MCV 90 MCH 29.1 MCHC 32.5 RDW 17.4 H Plt Count 212 MPV 11.3 H Immature Gran % 2.3 Neutrophils % 79.9 Lymphocytes % 5.8 Monocytes % 10.8 Eosinophils % 0.7 Basophils % 0.5 Nucleated RBC % 0.0 Absolute Neutrophils 6.51 Absolute Lymphocytes 0.47 L Absolute Monocytes 0.88 H Absolute Eosinophils 0.06 Absolute Basophils 0.04 VBG Lactate 1.4 Sodium 139 Potassium 2.9 L* Chloride 102 Carbon Dioxide 25.6 Anion Gap 11.4 H BUN 27 H Creatinine 1.8 H Est GFR (CKD-EPI 2020) 30.88 Glucose 107 H Calcium 8.3 L Magnesium 1.6 L Total Bilirubin 0.5 AST 16 ALT 15 Alkaline Phosphatase 80 Troponin I 67 H* NT-Pro-B Natriuret Pep 479 H Total Protein 5.9 L Albumin 2.6 L Lipase 17 Procalcitonin 0.1 Urine Color Yellow Urine Clarity Sl Cloudy Urine pH 5.5 Ur Specific [place] 1.025 Urine Protein 100 H Urine Ketones Trace H Urine Blood Small H Urine Nitrite Positive H Urine Bilirubin Negative Urine Urobilinogen 0.2 Ur Leukocyte Esterase Moderate H Urine RBC Not Applicable Urine WBC >50 H Ur Epithelial Cells Not Applicable Urine Crystals Not Applicable Urine Bacteria Not Applicable Urine Mucus Not Applicable Ur Culture Indicated? Yes Urine Glucose Negative COVID-19 Source Nasopharynx SARS-CoV-2 (PCR) Negative Influenza Type A (PCR) Negative Influenza Type B (PCR) Negative RSV (PCR) Negative 12/16/23 12/17/23 14:50 06:50 WBC 6.28 RBC 2.44 L Hgb 7.2 L Hct 22.4 L MCV 92 MCH 29.5 MCHC 32.1 RDW 17.8 H Plt Count 180 MPV 11.4 H Immature Gran % Neutrophils % Lymphocytes % Monocytes % Eosinophils % Basophils % Nucleated RBC % Absolute Neutrophils Absolute Lymphocytes Absolute Monocytes Absolute Eosinophils Absolute Basophils VBG Lactate Sodium 141 Potassium 2.9 L* Chloride 107 Carbon Dioxide 22.1 Anion Gap 11.9 H BUN 27 H Creatinine 1.8 H Est GFR (CKD-EPI 2020) 30.88 Glucose 99 Calcium 7.8 L Magnesium 1.6 L Total Bilirubin AST ALT Alkaline Phosphatase Troponin I 65 H* NT-Pro-B Natriuret Pep Total Protein Albumin Lipase Procalcitonin Urine Color Urine Clarity Urine pH Ur Specific [place] Urine Protein Urine Ketones Urine Blood Urine Nitrite Urine Bilirubin Urine Urobilinogen Ur Leukocyte Esterase Urine RBC Urine WBC Ur Epithelial Cells Urine Crystals Urine Bacteria Urine Mucus Ur Culture Indicated? Urine Glucose COVID-19 Source SARS-CoV-2 (PCR) Influenza Type A (PCR) Influenza Type B (PCR) RSV (PCR) Time Spent with Patient Time Spent with Patient: >50 minutes Time was spent: preparing to see the patient(eg.review tests), obtaining and/or reviewing separately otained hiistory, ordering medications,tests, procedures, referring, communicating with other health day care aide, indepentently i nterpreting results, counseling the patient and care coordination
--- NOTE | 2023-12-17 09:56 | PDOC.CMIN ---
Date of service: 12/17/23 Time of Service: 09:57 Care Management Initial Assmt Initial Assessment Reason for Hospitalization: severe sepsis Functional Status/Living Situation Patient Presentation: Sarah was sitting up in bed visiting with her . She was pleasant in manner and agreeable to conversation. Sarah was admitted with sepsis secondary to a UTI. She shared that she also has renal and breast cancer for which she is receiving chemotherapy. She is independent at baseline and does not receive any commercial services. She indicated that whatever assistance she needs is provided by her . Town of Residence: [place] Resides with: Spouse ( Redd and grandson) Significant Other/Family: Local (Sarah has 4 children. Two live locally, one is in [place] and the other is in [place]) Natural Supports: Employment Status: Retired Instrumental Activities of Daily Living (ADLs): Requires support (needs some assistance at times which is provided by ) Medications Medication Management: No Issues/Barriers identified Physical Functioning/Mobility Assistive Device: none Advance Directives Advance Directives: Do you have an Advance Directive: Y 11/04/23 16:30 AD On File at [facility]: Y 12/16/23 10:22 Date Asked 12/16/23 12/16/23 10:43 AD Date Reviewed 12/01/23 12/01/23 14:20 COLST On File at [facility] No 11/04/23 16:30 COLST Date Scanned Code Status Resuscitation Status Full Code Insurance Coverage/Financial Issues Insurance: [employer] ACO Member: No Care Team Visit Care Team Role Provider Type Rob Ziegler Primary Care Provider NON-[facility] STAFF PHYSICIAN JOHNNY Maya Emergency Provider [employer] Tommy Stark MD Admit Provider [facility] STAFF PHYSICIAN Attending Provider Discharge Potential Discharge Needs: PCP F/U Appt Anticipated Barriers to Discharge: Medical Status Patient/Family Education Needs: Review discharge instructions, discuss Ask Me Three Transportation: Private vehicle Plan: Anticipate Sarah will be discharged home with no new services when medically stable. She will follow up with her PCP and Oncologist and plan of care and transport with family. CM will continue to support discharge needs. PFSH All Active Problems (Updated 12/18/23 @ 09:07 by Tommy Stark MD) Demand ischemia (Acute) UTI (urinary tract infection) (Acute) CAP (community acquired pneumonia) (Acute) Severe sepsis (Acute) Hypokalemia (Acute) Pneumonia (Acute) Urinary tract infection (Acute) Anemia (Chronic) Discharge planning issues (Acute) Breast cancer metastasized to axillary lymph node (Acute) Diarrhea due to drug (Acute) Hypertension (Chronic) Medical History (Updated 12/18/23 @ 09:07 by Tommy Stark MD) Renal carcinoma Renal cell carcinoma of left kidney Depression with anxiety Surgical History (Updated 11/04/23 @ 18:37 by Juancarlos Lynch) H/O left mastectomy H/O partial nephrectomy left, for RCC Social History (Updated 11/04/23 @ 18:38 by Juancarlos Lynch) Smoking/Tobacco Use Status: Never Smoking risk assessment performed?: Yes Alcohol Intake: never Drug use: Never Housing: house Do you feel safe at home: Yes Do you feel safe in your relationship?: Yes Additional Social history: lives with Jevon, who is supportive and helps care for her. Born in [place], grew up in [place] SDOH(Care Management) Screening Will the Patient Participate in the Screening?: Unable to obtain Anticipated HH Services Anticipated HH Services at [facility]charge [facility].
[2023-12-17] MEDS: Enoxaparin 40 MG/0.4 ML SYR SC ×2 (11:04→20:25)
[2023-12-17 11:30] VITALS: BP 116/93; PULSE 96; RESP 18; TEMP 36; O2SAT 98
[2023-12-17 13:11] LABS: Anion Gap 10.8 mmol/L (3-11); BUN 27 mg/dL (7-18); CO2 22.2 mmol/L (21.0-32.0); CREATININE 1.7 mg/dL (0.55-1.02); Calcium 8.2 mg/dL (8.5-10.1); Chloride 107 mmol/L (98-107); Estimated GFR 33.07 (mL/min/1.73m2); Glucose 136 mg/dL (74-106); Potassium 3.4 mmol/L (3.5-5.1); Sodium 140 mmol/L (136-145)
[2023-12-17] MEDS: cefTRIAXone 1 GM/50 ML BAG IVPB (13:44)
--- NOTE | 2023-12-17 13:58 | PHA.REVIEW2 ---
Pharmacy Admission Review Admission Clinical Review Admission Pharmacy Review: (Updated 12/16/23 @ 16:02 by Tommy Stark MD) Demand ischemia (Acute) UTI (urinary tract infection) (Acute) CAP (community acquired pneumonia) (Acute) Severe sepsis (Acute) Hypokalemia (Acute) Breast cancer metastasized to axillary lymph node (Acute) Penicillins Allergy (Mild, Verified 12/16/23 12:58) Skin Rash Resuscitation Status Full Code Height 5 ft 4 in Weight 119 kg Pharmacy Admission Review Renal Dosing Renal Dosing: BUN 27 mg/dL (7-18) H 12/17/23 12:52 Creatinine 1.7 mg/dL (0.55-1.02) H 12/17/23 12:52 Medications needing adjustments: Reviewed (CrCl 41.82 mL/min) Anticoagulation Anticoagulation: Hgb 7.2 g/dL (11.2-15.7) L 12/17/23 06:50 Hct 22.4 % (36.0-46.0) L 12/17/23 06:50 Plt Count 180 10^3/uL (130-400) 12/17/23 06:50 Creatinine 1.7 mg/dL (0.55-1.02) H 12/17/23 12:52 DVT Prophylaxis: Intervened (Changed from QD to BID due to BMI > 40) Medications: Enoxaparin (40mg BID) Relevant Labs Relevant Labs: Sodium 140 mmol/L (136-145) 12/17/23 12:52 Potassium 3.4 mmol/L (3.5-5.1) L 12/17/23 12:52 Chloride 107 mmol/L (98-107) 12/17/23 12:52 Magnesium 1.6 mg/dL (1.8-2.4) L 12/17/23 06:50 Electrolytes, C-Reactive P, ESR: Reviewed (K increased from 2.9 to 3.4, mg 1.6, hgb decreased from 9.1 to 7.2, glucose 136) Cardiac Review Cardiac Review: Troponin I 65 ng/L (< or =60) H* 12/16/23 14:50 NT-Pro-B Natriuret Pep 479 pg/mL (<300) H 12/16/23 11:54 Blood Pressure 116/93 1130 Blood Pressure 119/61 0717 Blood Pressure 120/63 0335 BP, HR, EF%: Reviewed (BP 116/93 and HR 96) QTc Review QTc: Reviewed (587 from 12/16/23) IV to PO Switch IV Medications: Reviewed (ceftriaxone) Home Meds Home Med List reviewed: Reviewed Relevent Home Meds Not ordered & why?: Flonase (PRN) and lisinopril (per home med list - no longer taking) Current Meds Current Medication Order Review: Intervened Comments: Citalopram changed from 40mg to 20mg daily, recommended max daily dose of 20mg for people > 60 years old Pharmacy Antibiotic Review Relevant Labs: WBC 6.28 10^3/uL (4.4-10.8) 12/17/23 06:50 Procalcitonin 0.1 ng/mL 12/16/23 11:54 Temperature 36 C Temperature 36.0 C Temperature 37 C Microbiology 12/16/23 12:07 Urine Culture - Preliminary Urine - Reflex from Ua Gram Negative [facility] Antibiotic Activity: C/S review and Reviewed, no change Comments: Patient is on day 1 of ceftriaxone and PO doxycycline for UTI/sepsis. Blood culture pending, urine culture growing gram negative valentin.
[2023-12-17 14:50] VITALS: BP 124/63; PULSE 90; RESP 16; TEMP 35.6; O2SAT 100
--- NOTE | 2023-12-17 15:51 | CHAPLAIN ---
Sarah was sitting up in the chair when I visited. She told me about her bread cancer diagnosis, which led to finding her kidney cancer. She is two treatments away from finishing her chemo treatments and will then have. Her potassium was low when she went for her cancer treatment and she sent to the ED, where they also found she has UTI and pneumonia. Sarah lives in [place] with her , Redd who is with her today, and a grandson. Sarah said she is very relieved to be nearing the end of her chemo therapy and looks forward to getting the last two treatments rescheduled. Her adult children live at distances from her.
[2023-12-17] MEDS: Loratidine 10 MG TAB PO (20:25)
[2023-12-17] MEDS: Citalopram 20 MG TAB PO (20:25)
[2023-12-17] MEDS: Folic Acid 1 MG TAB PO (20:25)
[2023-12-17 20:30] VITALS: BP 115/68; PULSE 93; RESP 20; TEMP 36.3; O2SAT 95
[2023-12-17] MEDS: Calcium Carbonate *TUMS* 500 MG CHEW PO (21:11)
[2023-12-17] MEDS: MAGNESIUM SULFATE 2 GM/50 ML BAG IVINF (22:50)
[2023-12-18 04:00] VITALS: BP 106/60; PULSE 90; RESP 18; TEMP 36.5; O2SAT 100
[2023-12-18 06:22] LABS: HCT 24.4 % (36.0-46.0); HGB 7.6 g/dL (11.2-15.7); MCHC 31.1 % (32.0-36.0); MCV 93 fL (80-95); MPV 10.7 fL (8.0-11.0); Platelet Count 211 10^3/uL (130-400); RBC 2.62 10^6/uL (3.93-5.22); RDW 17.7 % (11.7-14.6); RDW-SD 59.8 fL; WBC 6.06 10^3/uL (4.4-10.8)
[2023-12-18 06:41] LABS: Anion Gap 8.8 mmol/L (3-11); BUN 23 mg/dL (7-18); CO2 24.2 mmol/L (21.0-32.0); CREATININE 1.3 mg/dL (0.55-1.02); Calcium 8.8 mg/dL (8.5-10.1); Chloride 108 mmol/L (98-107); Estimated GFR 45.63 (mL/min/1.73m2); Glucose 102 mg/dL (74-106); Potassium 3.7 mmol/L (3.5-5.1); Sodium 141 mmol/L (136-145)
[2023-12-18 08:21] VITALS: BP 116/71; PULSE 99; RESP 18; TEMP 36.4; O2SAT 100
--- NOTE | 2023-12-18 09:07 | W.PM.DS.N ---
Date of service: 12/18/23 Time of Service: 09:07 DS: Diagnosis Discharge Diagnosis (1) Severe sepsis: Status: Acute Asessment and Plan: Patient presented to the hospital for signs and symptoms that were ultimately determined to be secondary to severe sepsis, UTI, community-acquired pneumonia, hypokalemia and hypomagnesemia. She was treated with doxycycline and ceftriaxone and had significant improvement of her symptoms, and these will be transitioned to oral Doxy and cefuroxime to complete 7-day course of antibiotic treatment. Additionally, she required significant amount of IV potassium for repletion as well as magnesium, however on the morning of discharge her potassium normalized at 3.7. Patient will also be discharged with p.o. potassium repletion and recommendation to continue close follow-up with her PCP and oncologist. (2) CAP (community acquired pneumonia): Status: Acute Asessment and Plan: -as noted above (3) UTI (urinary tract infection): Status: Acute Asessment and Plan: -as noted above (4) Demand ischemia: Status: Acute Asessment and Plan: -trop peaked at 65 without chest pain or EKG changes, secondary to severe sepsis as noted above (5) Hypokalemia: Status: Acute Asessment and Plan: -required multiple days of IV K replacement, though K was 3.7 on day of discharge -patient being discharged with 20mEq daily of dissolvable K, rec close PCP follow-up and outpatient BMP (6) Breast cancer metastasized to axillary lymph node: Status: Acute Asessment and Plan: -continue close follow-up with Oncologist Discharge Plan Disposition Patient Disposition: Home Condition: Good Discharge Details Reason For Visit: severe sepsis UTI Admit Date/Time: 12/16/23 13:57 Admit Provider: Tommy Stark Attending Provider: Tommy Stark Primary Care Provider: Rob Ziegler Hospital Course Hospital Course: Patient presented to the hospital for signs and symptoms that were ultimately determined to be secondary to severe sepsis, UTI, community-acquired pneumonia, hypokalemia and hypomagnesemia. She was treated with doxycycline and ceftriaxone and had significant improvement of her symptoms, and these will be transitioned to oral Doxy and cefuroxime to complete 7-day course of antibiotic treatment. Additionally, she required significant amount of IV potassium for repletion as well as magnesium, however on the morning of discharge her potassium normalized at 3.7. Patient will also be discharged with p.o. potassium repletion and recommendation to continue close follow-up with her PCP and oncologist. Home Meds and New Rx's Prescriptions: New doxycycline hyclate 100 mg Capsule 100 mg PO BID Qty: 9 0RF cefpodoxime 200 mg tablet 200 mg PO BID Qty: 9 0RF Rx Instructions: must administer with a meal/food potassium chloride 20 mEq packet 20 meq PO DAILY Qty: 50 0RF Continued folic acid 1 mg tablet 1 mg PO HS citalopram 40 mg tablet 40 mg PO HS loratadine [Claritin] 10 mg tablet 10 mg PO HS fluticasone propionate 50 mcg/actuation spray,suspension 1 spray INTRANASAL DAILY Patient Comments: INSTILL ONE SPRAY IN EACH NOSTRIL ONCE DAILY Discontinued lisinopril 20 mg tablet 20 mg PO HS Hold Instructions: Changed by Provider Discharge Instructions Instructions: Community-Acquired Pneumonia, Adult (DC), Urinary tract infection - Discharge instructions Activity:: Activity as Tolerated Equipment/Supplies:: No Equipment Needed Diet:: As Tolerated Discharge Orders Discharge Orders: Discharge Order (Routine); Ordered 12/18/23 Ordered By: Tommy Stark DS: Summary Time Spent with Patient providing and/or coordinating discharge services: Greater than 30 minutes Status at Discharge Functional status at discharge: independent ambulation Overall status at discharge: patient is back to baseline Mental Status: mental status grossly normal Speech and Movement: speech and movement normal Mood: congruent mood Affect: normal affect Quality:SDOH Health Related Social Needs: No Data to Display Exam Narrative Exam Narrative: Frail-appearing older female laying in bed in no acute distress, ANO x 4, heart regular rate rhythm, lungs with minimally diminished breath sounds in left lower lobe, abdomen obese, soft, nontender, nondistended Psych Mental Status: mental status grossly normal Speech and Movement: speech and movement normal Mood: congruent mood Affect: normal affect DS: Data Vitals/I&O Vitals and I&O: Vital Signs Temperature 97.5 F L 12/18/23 08:21 Temperature Source Tympanic 12/18/23 08:21 Pulse 99 H 12/18/23 08:21 Pulse Rhythm Regular 12/18/23 01:30 Pulse 90 12/16/23 15:00 Respiratory Rate 18 12/18/23 08:21 Respiratory Effort Normal, Non-Labored 12/18/23 01:30 Respiratory Depth Normal 12/18/23 01:30 Respiratory Pattern Normal 12/18/23 01:30 Blood Pressure 116/71 12/18/23 08:21 Blood Pressure Mean 93 12/16/23 15:00 Blood Pressure Position Sitting 12/16/23 12:07 Pulse Oximetry 100 12/18/23 08:21 Oxygen Delivery Method Room Air 12/18/23 08:21 Oxygen Flow Rate 0 12/18/23 08:21 Pain Level 0 12/18/23 08:21 Intake & Output 12/17/23 12/18/23 12/18/23 17:59 05:59 17:59 Intake Total 1815 / 1815 300 / 2115 100 / 100 Output Total 350 / 350 200 / 550 400 / 400 Balance 1465 / 1465 100 / 1565 -300 / -300 Intake: IV 1335 / 1335 300 / 1635 100 / 100 Oral 480 / 480 Output: Urine 350 / 350 200 / 550 400 / 400 Other: Urine Color Yellow Yellow Yellow Urine Appearance Clear Clear Clear Urine Odor None Comment patient up to BSC independently Stool Size Moderate Moderate Moderate Stool Characteristics Soft Soft Liquid Brown Brown Voiding Methods Bedside Commode Bedside Commode Bedside Commode Data Completed and Pending Labs on day of discharge: Labs from last 24 hours 12/18/23 12/17/23 06:13 12:52 WBC 6.06 RBC 2.62 L Hgb 7.6 L Hct 24.4 L MCV 93 MCH 29.0 MCHC 31.1 L RDW 17.7 H Plt Count 211 MPV 10.7 Sodium 141 140 Potassium 3.7 3.4 L Chloride 108 H 107 Carbon Dioxide 24.2 22.2 Anion Gap 8.8 10.8 BUN 23 H 27 H Creatinine 1.3 H 1.7 H Est GFR (CKD-EPI 2020) 45.63 33.07 Glucose 102 136 H Calcium 8.8 8.2 L Magnesium 2.0 Preliminary micro results at discharge 12/16/23 17:08 Blood Culture - Preliminary Blood NO GROWTH 24 HOURS PFSH All Active Problems (Updated 12/18/23 @ 09:07 by Tommy Stark MD) Demand ischemia (Acute) UTI (urinary tract infection) (Acute) CAP (community acquired pneumonia) (Acute) Severe sepsis (Acute) Hypokalemia (Acute) Pneumonia (Acute) Urinary tract infection (Acute) Anemia (Chronic) Discharge planning issues (Acute) Breast cancer metastasized to axillary lymph node (Acute) Diarrhea due to drug (Acute) Hypertension (Chronic) Medical History (Updated 12/18/23 @ 09:07 by Tommy Stark MD) Renal carcinoma Renal cell carcinoma of left kidney Depression with anxiety Surgical History (Updated 11/04/23 @ 18:37 by Juancarlos Lynch) H/O left mastectomy H/O partial nephrectomy left, for RCC Social History (Updated 11/04/23 @ 18:38 by Juancarlos Lynch) Smoking/Tobacco Use Status: Never Smoking risk assessment performed?: Yes Alcohol Intake: never Drug use: Never Housing: house Do you feel safe at home: Yes Do you feel safe in your relationship?: Yes Additional Social history: lives with Jevon, who is supportive and helps care for her. Born in [place], grew up in [place] Time Spent with Patient Time Spent with Patient: <45 minutes Time was spent: preparing to see the patient(eg.review tests), obtaining and/or reviewing separately otained hiistory, ordering medications,tests, procedures, referring, communicating with other health care navigator, indepentently interpreting results, counseling the patient and care coordination
[2023-12-18] MEDS: Doxycycline Hyclate 100 MG CAP PO (09:28)
[2023-12-18] MEDS: Normal Saline Flush 10 ML SYR IVP (09:29)
[2023-12-18] MEDS: Enoxaparin 40 MG/0.4 ML SYR SC (09:29)
--- NOTE | 2023-12-18 11:26 | PDOC.CMDIS ---
Date of service: 12/18/23 Time of Service: 11:26 LACE Index Scoring Tool Questions: Length of Stay (in days): 2 Was the patient admitted via the E.D.?: Yes Comorbidities: Liver or Renal Disease and Metastatic Solid Tumor E.D. Visits: 2 Answers: Total Score: 12 Risk of Readmission: High Risk Care Management Discharge Plan Reason for Hospitalization: sepsis Discharge Plan: Sarah will be discharged home with no new services. She will follow up with her PCP and Oncologist and plan of care and transport with family. Patient/Family Education Needs: Review discharge instructions, discuss Ask Me Three SDOH Health Related Social Needs: No Data to Display
== END 2023-12-18 10:23 | disposition home or self-care (01) | DRG 871 ==
LOC: ER 14:40 → MS 15:40
PROVIDERS: General Practice; Admitting Provider Family Medicine; Emergency Provider Physician Assistant; PCP Family Medicine; Visit Provider Family Medicine
DX: A41.9 Sepsis, unspecified organism (principal); J18.9 Pneumonia, unspecified organism; N39.0 Urinary tract infection, site not specified; I24.89 Other forms of acute ischemic heart disease; C77.3 Secondary and unspecified malignant neoplasm of axilla and upper limb lymph nodes; R65.20 Severe sepsis without septic shock; E83.42 Hypomagnesemia; E87.6 Hypokalemia; G62.0 Drug-induced polyneuropathy; T45.1X5A Adverse effect of antineoplastic and immunosuppressive drugs, initial encounter; I10 Essential (primary) hypertension; Z79.899 Other long term (current) drug therapy; C50.912 Malignant neoplasm of unspecified site of left female breast; F41.8 Other specified anxiety disorders; D64.9 Anemia, unspecified; Z90.5 Acquired absence of kidney; Z90.12 Acquired absence of left breast and nipple; Z85.528 Personal history of other malignant neoplasm of kidney
CPT/HCPCS: 00123; 36415; 80048; 80053; 83690; 84145; 85027; 87040; 87077; 87637; 93005; 96365; 96366; 96367; 99285; J1650; 71045; 81003; 81015; 83605; 83735; 83880; 84484; 85025; 87086; 87186; 93010; 99223; 99233; 99238; J0696; J3475; J3480

== ENCOUNTER 2023-12-23 02:28 | Outpatient (RCR) | payer OTHER, SELFPAY ==
[2023-12-02] MEDS: Normal Saline Flush 10 ML SYR IVP (08:48)
[2023-12-02 08:58] LABS: Abs Immature Grans 0.16 10^3/uL (0.0-0.06); Absolute Basophil Count 0.06 10^3/uL (0.0-0.2); Absolute Eosinophil Count 0.26 10^3/uL (0.0-0.7); Absolute Lymphocyte Count 0.58 10^3/uL (1.2-3.4); Absolute Monocyte Count 0.82 10^3/uL (0.1-0.8); Absolute Neutrophil Count 5.66 10^3/uL (1.2-6.7); Basophils % 0.8 %; Eosinophils % 3.4 %; HCT 28.8 % (36.0-46.0); HGB 9.3 g/dL (11.2-15.7); Immature Grans % 2.1 %; Lymphocytes % 7.7 %; MCH 28.1 pg (27.0-33.0); MCHC 32.3 % (32.0-36.0); MCV 87 fL (80-95); MPV 11.4 fL (8.0-11.0); Monocytes % 10.9 %; Neutrophils % 75.1 %; Platelet Count 180 10^3/uL (130-400); RBC 3.31 10^6/uL (3.93-5.22); RDW 19.3 % (11.7-14.6); RDW-SD 60.6 fL; WBC 7.54 10^3/uL (4.4-10.8)
[2023-12-02 09:13] LABS: ALT 20 U/L (14-59); AST 18 U/L (15-37); Albumin 2.7 g/dL (3.4-5.0); Alkaline Phosphatase 89 U/L (46-116); Anion Gap 10.6 mmol/L (3-11); BUN 27 mg/dL (7-18); Bilirubin, Total 0.4 mg/dL (0.2-1.0); CO2 25.4 mmol/L (21.0-32.0); CREATININE 1.6 mg/dL (0.55-1.02); Calcium 8.5 mg/dL (8.5-10.1); Chloride 102 mmol/L (98-107); Estimated GFR 35.57 (mL/min/1.73m2); Glucose 114 mg/dL (74-106); Potassium 3.7 mmol/L (3.5-5.1); Sodium 138 mmol/L (136-145); Total Protein 6.2 g/dL (6.4-8.2)
[2023-12-16] MEDS: Normal Saline Flush 10 ML SYR IVP (08:29)
[2023-12-16 09:01] LABS: Abs Immature Grans 0.43 10^3/uL (0.0-0.06); Absolute Basophil Count 0.06 10^3/uL (0.0-0.2); Absolute Eosinophil Count 0.09 10^3/uL (0.0-0.7); Absolute Lymphocyte Count 0.54 10^3/uL (1.2-3.4); Absolute Monocyte Count 0.94 10^3/uL (0.1-0.8); Absolute Neutrophil Count 7.66 10^3/uL (1.2-6.7); Basophils % 0.6 %; Eosinophils % 0.9 %; HCT 27.3 % (36.0-46.0); Immature Grans % 4.4 %; Lymphocytes % 5.6 %; MCH 29.2 pg (27.0-33.0); MCV 89 fL (80-95); MPV 11.7 fL (8.0-11.0); Monocytes % 9.7 %; Neutrophils % 78.8 %; Platelet Count 241 10^3/uL (130-400); RBC 3.08 10^6/uL (3.93-5.22); RDW 17.6 % (11.7-14.6); RDW-SD 56.7 fL; WBC 9.72 10^3/uL (4.4-10.8)
[2023-12-16 09:16] LABS: ALT 15 U/L (14-59); AST 16 U/L (15-37); Albumin 2.6 g/dL (3.4-5.0); Alkaline Phosphatase 87 U/L (46-116); Anion Gap 11.8 mmol/L (3-11); BUN 26 mg/dL (7-18); Bilirubin, Total 0.6 mg/dL (0.2-1.0); CO2 25.2 mmol/L (21.0-32.0); CREATININE 1.7 mg/dL (0.55-1.02); Calcium 8.4 mg/dL (8.5-10.1); Chloride 102 mmol/L (98-107); Estimated GFR 33.07 (mL/min/1.73m2); Glucose 116 mg/dL (74-106); Sodium 139 mmol/L (136-145); Total Protein 6.1 g/dL (6.4-8.2)
[2023-12-16 09:23] LABS: Potassium 2.5 mmol/L (3.5-5.1)
[2023-12-16 09:49] LABS: Magnesium 1.3 mg/dL (1.8-2.4)
[2023-12-23] MEDS: Normal Saline Flush 10 ML SYR IVP (08:34)
[2023-12-23 08:49] LABS: Abs Immature Grans 0.02 10^3/uL (0.0-0.06); Absolute Basophil Count 0.07 10^3/uL (0.0-0.2); Absolute Eosinophil Count 0.05 10^3/uL (0.0-0.7); Absolute Lymphocyte Count 0.69 10^3/uL (1.2-3.4); Absolute Monocyte Count 0.55 10^3/uL (0.1-0.8); Absolute Neutrophil Count 4.14 10^3/uL (1.2-6.7); Basophils % 1.3 %; Eosinophils % 0.9 %; HCT 26.5 % (36.0-46.0); HGB 8.6 g/dL (11.2-15.7); Immature Grans % 0.4 %; Lymphocytes % 12.5 %; MCH 30.4 pg (27.0-33.0); MCHC 32.5 % (32.0-36.0); MCV 94 fL (80-95); MPV 10.9 fL (8.0-11.0); Neutrophils % 74.9 %; Platelet Count 207 10^3/uL (130-400); RBC 2.83 10^6/uL (3.93-5.22); RDW 17.2 % (11.7-14.6); RDW-SD 58.9 fL; WBC 5.52 10^3/uL (4.4-10.8)
[2023-12-23 09:09] LABS: ALT 25 U/L (14-59); AST 29 U/L (15-37); Albumin 2.6 g/dL (3.4-5.0); Alkaline Phosphatase 90 U/L (46-116); Anion Gap 11.8 mmol/L (3-11); BUN 20 mg/dL (7-18); Bilirubin, Total 0.54 mg/dL (0.2-1.0); CO2 23.2 mmol/L (21.0-32.0); CREATININE 1.4 mg/dL (0.55-1.02); Calcium 8.7 mg/dL (8.5-10.1); Chloride 109 mmol/L (98-107); Estimated GFR 41.75 (mL/min/1.73m2); Glucose 120 mg/dL (74-106); Potassium 3.4 mmol/L (3.5-5.1); Sodium 144 mmol/L (136-145); Total Protein 5.9 g/dL (6.4-8.2)
== END 2023-12-28 23:59 | disposition home or self-care (01) ==
LOC: INF 02:28
PROVIDERS: Nurse Practitioner Family; PCP Family Medicine; Visit Provider Internal Medicine Hematology & Oncology
DX: C50.412 Malignant neoplasm of upper-outer quadrant of left female breast (principal); Z17.0 Estrogen receptor positive status [ER+]; Z45.2 Encounter for adjustment and management of vascular access device
CPT/HCPCS: 36591; 80053; 83735; 85025

== ENCOUNTER 2023-12-30 08:22 | Outpatient (RCR) | payer OTHER, SELFPAY ==
[2023-12-30] MEDS: Normal Saline Flush 10 ML SYR IVP (09:42)
[2023-12-30 09:56] LABS: Abs Immature Grans 0.02 10^3/uL (0.0-0.06); Absolute Basophil Count 0.04 10^3/uL (0.0-0.2); Absolute Eosinophil Count 0.25 10^3/uL (0.0-0.7); Absolute Lymphocyte Count 0.83 10^3/uL (1.2-3.4); Absolute Monocyte Count 0.71 10^3/uL (0.1-0.8); Absolute Neutrophil Count 2.89 10^3/uL (1.2-6.7); Basophils % 0.8 %; Eosinophils % 5.3 %; HCT 30.1 % (36.0-46.0); HGB 9.5 g/dL (11.2-15.7); Immature Grans % 0.4 %; Lymphocytes % 17.5 %; MCH 31.1 pg (27.0-33.0); MCHC 31.6 % (32.0-36.0); MCV 99 fL (80-95); MPV 11.2 fL (8.0-11.0); Platelet Count 201 10^3/uL (130-400); RBC 3.05 10^6/uL (3.93-5.22); RDW 15.9 % (11.7-14.6); RDW-SD 58.2 fL; WBC 4.74 10^3/uL (4.4-10.8)
[2023-12-30 10:14] LABS: ALT 34 U/L (14-59); AST 35 U/L (15-37); Albumin 2.7 g/dL (3.4-5.0); Alkaline Phosphatase 104 U/L (46-116); Anion Gap 9.3 mmol/L (3-11); BUN 14 mg/dL (7-18); Bilirubin, Total 0.38 mg/dL (0.2-1.0); CO2 21.7 mmol/L (21.0-32.0); CREATININE 1.4 mg/dL (0.55-1.02); Calcium 8.9 mg/dL (8.5-10.1); Chloride 107 mmol/L (98-107); Estimated GFR 41.75 (mL/min/1.73m2); Glucose 107 mg/dL (74-106); Potassium 4.2 mmol/L (3.5-5.1); Sodium 138 mmol/L (136-145); Total Protein 6.1 g/dL (6.4-8.2)
== END 2024-01-28 23:59 | disposition home or self-care (01) ==
LOC: INF 08:22
PROVIDERS: PCP Family Medicine; Visit Provider Internal Medicine Hematology & Oncology
DX: C50.412 Malignant neoplasm of upper-outer quadrant of left female breast (principal); Z17.0 Estrogen receptor positive status [ER+]; Z45.2 Encounter for adjustment and management of vascular access device
CPT/HCPCS: 36591; 80053; 85025

== ENCOUNTER → 2024-02-02 02:03 | Outpatient (CLI) | payer OTHER, SELFPAY ==
--- NOTE | 2024-02-02 | DI.MRI_ITS ---
Exam(s) MR BRAIN WO/W EXAM: MR BRAIN WO/W CLINICAL HISTORY: C50.919,C64.2,R29.6,R42 Stage III CA female, Renal Cell CA LT Kidney, Falls TECHNIQUE: Multiplanar multisequence MRI of the brain was performed. Both noninfused and contrast i nfused sequences were performed. IV Contrast injected was 20 cc Dotarem. COMPARISON: No exams were available for comparison FINDINGS: SKULL/SCALP: No osseous lesions in the skull. There are, however, multiple well-defined scalp lesion s. There are 4 of these left of center and 1 smaller right of center. The largest measures 2 x 1.7 x 1.2 cm and is located over the high left paracentral parietal region. These are probably sebaceous cysts. There separate from the outer table of the skull. CEREBRAL PARENCHYMA: No evidence of intracranial hemorrhage, mass effect nor shift of midline structu re. No extraaxial fluid collections. Ventricles are not enlarged nor shifted. There is no significant focal signal abnormality in the cerebellar hemispheres nor within the mark, m idbrain, and thalami. There is no abnormal signal abnormality in the periventricular white matter. DWI: No areas of restricted diffusion to suggest acute ischemic event. SWI: No microhemorrhages evident. There are no ring enhancing lesions in the brain. There is no abnormal meningeal enhancement. PITUITARY GLAND: No mass nor parasellar abnormality. No obvious abnormality in the cavernous sinuses. FLOW VOIDS: The expected flow void are noted. No evidence of obvious aneurysm nor obvious vascular ma lformation. PARANASAL SINUSES: The visualized paranasal sinuses appear unremarkable. ORBITS: No obvious abnormal findings. IMPRESSION: 1. No significant intracranial findings on this MRI scan of the brain. No evidence of intracranial r ing-enhancing metastatic lesions. 2. Multiple lesions in the scalp which are probably sebaceous cysts. DATA REPOSITORY:
[2024-02-02] MEDS: Normal Saline Flush 10 ML SYR IVP (12:12)
[2024-02-02] MEDS: Gadoterate meglumine 20 ML SYRINGE IVP (12:13)
== END ==
PROVIDERS: PCP Family Medicine; Visit Provider Internal Medicine Hematology & Oncology
DX: C50.919 Malignant neoplasm of unspecified site of unspecified female breast (principal); C64.2 Malignant neoplasm of left kidney, except renal pelvis; R26.9 Unspecified abnormalities of gait and mobility; R42 Dizziness and giddiness
CPT/HCPCS: 70553

== ENCOUNTER 2024-02-02 03:03 | Outpatient (RCR) | payer OTHER, SELFPAY ==
[2024-02-02] MEDS: Normal Saline Flush 10 ML SYR IVP (11:58)
[2024-02-02 12:01] LABS: Abs Immature Grans 0.04 10^3/uL (0.0-0.06); Absolute Basophil Count 0.04 10^3/uL (0.0-0.2); Absolute Eosinophil Count 0.17 10^3/uL (0.0-0.7); Absolute Monocyte Count 0.64 10^3/uL (0.1-0.8); Absolute Neutrophil Count 7.32 10^3/uL (1.2-6.7); Basophils % 0.4 %; Eosinophils % 1.8 %; HCT 36.5 % (36.0-46.0); HGB 12.2 g/dL (11.2-15.7); Immature Grans % 0.4 %; Lymphocytes % 13.7 %; MCH 30.2 pg (27.0-33.0); MCHC 33.4 % (32.0-36.0); MCV 90 fL (80-95); MPV 11.4 fL (8.0-11.0); Monocytes % 6.7 %; Platelet Count 251 10^3/uL (130-400); RBC 4.04 10^6/uL (3.93-5.22); RDW 13.6 % (11.7-14.6); RDW-SD 45.7 fL; WBC 9.51 10^3/uL (4.4-10.8)
[2024-02-02 12:18] LABS: ALT 31 U/L (14-59); AST 46 U/L (15-37); Albumin 2.8 g/dL (3.4-5.0); Alkaline Phosphatase 84 U/L (46-116); Anion Gap 16.4 mmol/L (3-11); BUN 15 mg/dL (7-18); CO2 22.6 mmol/L (21.0-32.0); CREATININE 1.9 mg/dL (0.55-1.02); Chloride 102 mmol/L (98-107); Estimated GFR 28.76 (mL/min/1.73m2); Glucose 123 mg/dL (74-106); Sodium 141 mmol/L (136-145); Total Protein 6.6 g/dL (6.4-8.2)
[2024-02-02 12:29] LABS: Potassium 2.5 mmol/L (3.5-5.1)
== END 2024-02-28 23:59 | disposition home or self-care (01) ==
LOC: INF 03:03
PROVIDERS: PCP Family Medicine; Visit Provider Internal Medicine Hematology & Oncology
DX: C50.412 Malignant neoplasm of upper-outer quadrant of left female breast (principal); Z17.0 Estrogen receptor positive status [ER+]; Z45.2 Encounter for adjustment and management of vascular access device
CPT/HCPCS: 36591; 80053; 85025

== ENCOUNTER 2024-02-02 12:46 | Inpatient (IN) | payer OTHER, SELFPAY ==
[2024-02-02] VITALS (28 sets, daily range): BP systolic 109–154; BP diastolic 65–106; PULSE 76–139; RESP 12–27; TEMP 36–36.7; O2SAT 85–99
--- NOTE | 2024-02-02 12:45 | RT.EKG_ITS ---
APPROVED REPORT Exam: Resting ECG Reason for Exam: Low Potassium Patient Location: E HR:99 bpm ECG Measurements Heart Rate 99 AXIS NH [id number] P [id number] QRSd 91 QRS 28 QT 358 T -59 QTc 461 Conclusion Atrial fibrillation [address] changes no stemi
--- NOTE | 2024-02-02 13:15 | DI.RAD_ITS ---
Exam(s) XR PORTABLE CHEST AP EXAM: XR PORTABLE CHEST AP CLINICAL HISTORY: Cough,. TECHNIQUE: 2D digital imaging was performed. COMPARISON: CR XR PORTABLE CHEST AP from 12/16/2023 FINDINGS: Single AP portable view. Distal tip of the Port-A-Cath remains in good position in the SVC. Convex right thoracic scoliosis a gain noted. Heart size is upper normal. The mediastinum is not widened. Right lung is clear. Density in the left lung base is probably tenting of the left hemidiaphragm. N o obvious infiltrates nor pleural effusions. No pulmonary edema. IMPRESSION: No obvious acute pulmonary findings on this single AP portable view of the chest. Less suspicion for left lower lobe infiltrate when compared to prior images of 12/16/2023. DATA REPOSITORY: RADIATION DOSE DELIVERED:
--- NOTE | 2024-02-02 13:22 | ED.GENADUL_ITS ---
Discharge Plan Disposition Patient Disposition: Admit to [facility] Condition: Stable Discharge Details Clinical Impression: Hypokalemia Primary Care Provider: Rob Ziegler ED Provider: Rosemary Rodriguez Home Meds and New Rx's Prescriptions: No Action folic acid 1 mg tablet 1 mg PO HS citalopram 40 mg tablet 40 mg PO HS loratadine [Claritin] 10 mg tablet 10 mg PO HS HPI General Mode of arrival: wheelchair . Date/Time Provider Initiated Documentation: 02/02/24 12:51 . Limitations to Documentation: no limitations . Information obtained by: patient, RN notes reviewed and old records reviewed . HPI Narrative: 64-year-old female presents to the ER with a chief complaint of shakiness, nausea and dry heaves which began last night. She did have an MRI today and had some blood drawn was called by the cancer center due to low potassium. Patient was admitted approximately a month ago for similar presentation. She was admitted for severe sepsis with UTI and required multiple potassium infusions. She is not currently undergoing chemotherapy since the beginning of November due to adverse effects. Past medical history include breast cancer with mets to the left axillary node, renal cell carcinoma of left kidney, depression with anxiety, UTI and pneumonia. She does have a history of a left mastectomy and partial nephrectomy. On initial examination she does appear chronically ill, frail she is pale mild tremors noted, she is alert and oriented x 4. She reports a productive cough over the last couple of days with clear sputum reports chills, loose stools, no fever denies any abdominal pain. Related Data Home Medications ?Medication ?Instructions ?Recorded ?Confirmed citalopram 40 mg tablet 40 mg PO HS 11/04/23 02/02/24 folic acid 1 mg tablet 1 mg PO HS 11/04/23 02/02/24 loratadine 10 mg tablet (Claritin) 10 mg PO HS 11/04/23 02/02/24 Allergies Allergy/AdvReac Type Severity Reaction Status Date / Time Penicillins Allergy Mild Skin Rash Verified 02/02/24 12:56 General Stated Complaint: GenMedical WILLIAM: 2 Review of Systems All systems reviewed & are unremarkable except as noted in HPI and below Constitutional Constitutional: Reports as per HPI, Reports fatigue, Reports lethargy and Reports weakness Cardiovascular Cardiovascular: Denies chest pain and Denies dyspnea Respiratory Respiratory: Denies change in phlegm color, Reports cough, Denies pain with cough, Denies dyspnea and Denies wheezing Gastrointestinal Gastrointestinal: Denies abdominal pain, Reports loose stools, Reports nausea and Denies vomiting Neurologic Neurologic: Reports weakness Endocrine Endocrine: Reports fatigue Allergic/Immunologic Allergic/Immunologic: Denies wheezing Exam Narrative Exam Narrative: Constitutional: Alert and oriented x3. Appears stated age. Normal body habitus. Appears chronically ill and frail. Pale. Head: Normocephalic, no trauma. Eyes: Pupils PERRL, Red reflex noted, EOM's intact. Eyelids symmetrical without lesions, discharge, or swelling. ENT: Bilateral TM's WNL, External ear normal to inspection, no mastoid TTP, swelling, or erythema, Nasal turbinates WNL, no nasal discharge. Poor dentition, Posterior pharynx WNL, no exudate. Dry mucous membranes. Chest: RRR, Normal S1, S2, distal pulses intact. Resp: Lungs clear to auscultation bilaterally, no wheezes, rales, or rhonchi. Abdomen: Soft, non-distended, Normoactive bowel sounds all 4 quads. Musculoskeletal: Unable to assess gait, Moves all 4 extremities without difficul ty. Skin: No suspicious rashes or lesions. Capillary refill less than 2 sec. Neurologic: Cranial nerves II-XII intact. Alert and oriented x 3. Motor: No deficits noted. Sensory: Intact bilaterally all 4 extremities. Hematologic/Lymphatic: No ecchymosis, no lymphadenopathy. Course Vital Signs Vital signs: Vital Signs Temperature 36.3 C L 02/02/24 12:57 Temperature 36.3 C L 02/02/24 13:10 Temperature Source Temporal Artery Scan 02/02/24 13:10 Pulse 97 H 02/02/24 13:10 Respiratory Rate 18 02/02/24 13:10 Respiratory Effort Normal, Non-Labored 02/02/24 13:10 Respiratory Depth Normal 02/02/24 13:10 Respiratory Pattern Normal 02/02/24 13:10 Blood Pressure 148/104 H 02/02/24 13:10 Blood Pressure Position Sitting 02/02/24 13:10 Pulse Oximetry 98 02/02/24 13:10 Oxygen Delivery Method Room Air 02/02/24 13:10 Pain Level 3 02/02/24 13:10 Medical Decision Making 64-year-old female presents to the ER with a chief complaint of shakiness, na usea and dry heaves which began last night. She did have an MRI today and had some blood drawn was called by the cancer center due to low potassium. Patient was admitted approximately a month ago for similar presentation. She was admitted for severe sepsis with UTI and required multiple potassium infusions. She is not currently undergoing chemotherapy since the beginning of November due to adverse effects. Past medical history include breast cancer with mets to the left axillary node, renal cell carcinoma of left kidney, depression with anxiety, UTI and pneumonia. She does have a history of a left mastectomy and partial nephrectomy. On initial examination she does appear chronically ill, frail she is pale mild tremors noted, she is alert and oriented x 4. She reports a productive cough over the last couple of days with clear sputum reports chills, loose stools, no fever denies any abdominal pain. EKG was reviewed by myself and Dr. Cote see ER attending, old EKG available for review EKG shows atrial fibrillation, please see official report. CMP shows potassium critically low at 2.2, BUN 15 creatinine 1.7 which is at patient's baseline, magnesium is also very low at 0.8 Initial troponin within normal limits, proBNP 436, albumin is 2.6 Fluvid is pending at this time. Chest x-ray is improved from previous infiltrate. 40 mill equivalents KCl p.o. liquid ordered, 2 g magnesium IV piggyback, 10 mill equivalents potassium IV piggyback x 2 ordered. Will consult with hospitalist. 1448: Spoke with Dr. Stark who agrees to accept for admission for hypokalemia. Will discuss plan of care with patient. Patient and family verbalized understanding and are in agreement with the plan. This text was generated using Playedation system, please disregard any oddities of phrase or misspellings. Medical Records Medical records reviewed: Yes I reviewed the patient's medical records. Lab Data Lab results reviewed: Yes I reviewed the patient's lab results. Labs: Laboratory Tests Range/Units 02/02/24 13:35 WBC (4.4-10.8) 10^3/uL 8.38 RBC (3.93-5.22) 10^6/uL 3.74 L Hgb (11.2-15.7) g/dL 11.2 Hct (36.0-46.0) % 33.4 L MCV (80-95) fL 89 MCH (27.0-33.0) pg 29.9 MCHC (32.0-36.0) % 33.5 RDW (11.7-14.6) % 13.5 Plt Count (130-400) 10^3/uL 176 MPV (8.0-11.0) fL 11.4 H Immature Gran % % 0.4 Neutrophils % % 82.8 Lymphocytes % % 7.2 Monocytes % % 8.2 Eosinophils % % 1.0 Basophils % % 0.4 Nucleated RBC % (0.0-0.3) % 0.0 Absolute Neutrophils (1.2-6.7) 10^3/uL 6.95 H Absolute Lymphocytes (1.2-3.4) 10^3/uL 0.60 L Absolute Monocytes (0.1-0.8) 10^3/uL 0.69 Absolute Eosinophils (0.0-0.7) 10^3/uL 0.08 Absolute Basophils (0.0-0.2) 10^3/uL 0.03 Sodium (136-145) mmol/L 141 Potassium (3.5-5.1) mmol/L 2.2 L* Chloride (98-107) mmol/L 102 Carbon Dioxide (21.0-32.0) mmol/L 26.4 Anion Gap (3-11) mmol/L 12.6 H BUN (7-18) mg/dL 15 Creatinine (0.55-1.02) mg/dL 1.7 H Est GFR (CKD-EPI 2020) (mL/min/1.73m2) 32.87 Glucose (74-106) mg/dL 107 H Calcium (8.5-10.1) mg/dL 8.6 Magnesium (1.8-2.4) mg/dL 0.8 L Total Bilirubin (0.2-1.0) mg/dL 0.49 AST (15-37) U/L 42 H ALT (14-59) U/L 28 Alkaline Phosphatase (46-116) U/L 80 Troponin I (< or =60) ng/L < 50 NT-Pro-B Natriuret Pep (<300) pg/mL 436 H Total Protein (6.4-8.2) g/dL 6.2 L Albumin (3.4-5.0) g/dL 2.6 L Quality:SDOH Health Related Social Needs: No Data to Display PFSH All Active Problems (Updated 02/02/24 @ 14:49 by Rosemary Rodriguez NP) Hypokalemia (Acute) Anemia (Chronic) Discharge planning issues (Acute) Breast cancer metastasized to axillary lymph node (Acute) Diarrhea due to drug (Acute) Hypertension (Chronic) Medical History Pneumonia Urinary tract infection Renal carcinoma Renal cell carcinoma of left kidney Depression with anxiety Surgical History H/O left mastectomy H/O partial nephrectomy left, for RCC Social History Smoking/Tobacco Use Status: Never Smoking risk assessment performed?: Yes Alcohol Intake: never Drug use: Never Housing: house Do you feel safe at home: Yes Do you feel safe in your relationship?: Yes Additional Social history: lives with Jevon, who is supportive and helps care for her. Born in [place], grew up in [place]
[2024-02-02 13:45] LABS: Abs Immature Grans 0.03 10^3/uL (0.0-0.06); Absolute Basophil Count 0.03 10^3/uL (0.0-0.2); Absolute Eosinophil Count 0.08 10^3/uL (0.0-0.7); Absolute Monocyte Count 0.69 10^3/uL (0.1-0.8); Absolute Neutrophil Count 6.95 10^3/uL (1.2-6.7); Basophils % 0.4 %; HCT 33.4 % (36.0-46.0); HGB 11.2 g/dL (11.2-15.7); Immature Grans % 0.4 %; Lymphocytes % 7.2 %; MCH 29.9 pg (27.0-33.0); MCHC 33.5 % (32.0-36.0); MCV 89 fL (80-95); MPV 11.4 fL (8.0-11.0); Monocytes % 8.2 %; Neutrophils % 82.8 %; Platelet Count 176 10^3/uL (130-400); RBC 3.74 10^6/uL (3.93-5.22); RDW 13.5 % (11.7-14.6); RDW-SD 44.4 fL; WBC 8.38 10^3/uL (4.4-10.8)
[2024-02-02 14:07] LABS: ALT 28 U/L (14-59); AST 42 U/L (15-37); Albumin 2.6 g/dL (3.4-5.0); Alkaline Phosphatase 80 U/L (46-116); Anion Gap 12.6 mmol/L (3-11); BUN 15 mg/dL (7-18); Bilirubin, Total 0.49 mg/dL (0.2-1.0); CO2 26.4 mmol/L (21.0-32.0); CREATININE 1.7 mg/dL (0.55-1.02); Calcium 8.6 mg/dL (8.5-10.1); Chloride 102 mmol/L (98-107); Estimated GFR 32.87 (mL/min/1.73m2); Glucose 107 mg/dL (74-106); Magnesium 0.8 mg/dL (1.8-2.4); NT-proBNP 436 pg/mL (<300); Sodium 141 mmol/L (136-145); Total Protein 6.2 g/dL (6.4-8.2); Troponin I < 50 ng/L (< or =60)
[2024-02-02 14:08] LABS: Potassium 2.2 mmol/L (3.5-5.1)
[2024-02-02] MEDS: Potassium Chloride Liquid 20 MEQ PKT 40 MEQ PO (14:22)
[2024-02-02] MEDS: MAGNESIUM SULFATE 2 GM/50 ML BAG IVINF ×2 (14:23→18:19)
[2024-02-02] MEDS: POTASSIUM CHLORIDE 10 MEQ/100 ML BAG 100 MEQ IVINF ×2 (14:23→16:03)
[2024-02-02] MEDS: Ondansetron 4 MG/2 ML VIAL IVP (14:23)
[2024-02-02 15:07] LABS: COVID-19 PCR Negative (Negative); Influenza A PCR Negative (Negative); Influenza B PCR Negative (Negative); RSV PCR Negative (Negative)
[2024-02-02 15:11] LABS: Source Nasopharynx
--- NOTE | 2024-02-02 15:15 | W.PM.HP.N ---
Date of service: 02/02/24 Time of Service: 15:15 Assessment and Plan Assessment and plan (1) Hypokalemia: Status: Acute Assessment and plan: K 2.2 Supplementation ordered in ED K level at 20:00 Additional supplementation ordered for hypokalemia BMP in AM (2) Depression with anxiety: Assessment and plan: on home citalopram (3) Hypomagnesemia: Status: Inactive Assessment and plan: Supplementation ordered mag level at 20:00 (4) Nausea: Status: Acute Assessment and plan: On ondansetron PRN (5) Weakness: Status: Acute Assessment and plan: PT consult (6) Discharge planning issues: Status: Acute Assessment and plan: d/c home when medically cleared History of Present Illness History of Present Illness Chief Complaint: nausea, dry heaves, shakiness Narrative: This 64-year-old female with a past medical history of breast cancer, renal cell carcinoma of the left kidney with partial nephrectomy with last chemotherapy session in November 2023, depression with anxiety, presented to the ED at [facility] with chief complaint of shakiness, nausea, dry heaving beginning last night. The patient had a blood draw today and was called by the consult center due a potassium level of 2.2 to present to the emergency room. Other remarkable labs are magnesium of 0.8, creatinine of 1.7 around baseline, albumin of 2.6. Chest x-ray completed in the ED showed no obvious acute pulmonary findings; left lower lobe density appeared to be similar when compared to imaging obtained on 12/16/2023. EKG showed no acute findings pointing to ischemia, the patient was in atrial fibrillation heart rate 99. MRI did not show evidence of intracranial ring enhancing metastatic lesions. The patient at the previous admission for severe sepsis, UTI, and demand ischemia in November with similar initial presentation. Case was consulted and patient admitted to the medical surgical floor with telemetry for management of hypomagnesemia, hypokalemia, nausea and shakiness. Review of Systems All systems reviewed & are unremarkable except as noted in HPI and below Constitutional Constitutional: Reports weakness Eyes Eyes: Denies blurry vision and Denies loss of vision Cardiovascular Cardiovascular: Denies chest pain, Reports irregular heart rhythm and Denies palpitations Respiratory Respiratory: Denies chest congestion and Denies cough Gastrointestinal Gastrointestinal: Reports nausea and Denies vomiting Genitourinary Genitourinary: Denies hematuria, Denies urinary frequency, Denies difficulty voiding, Denies urinary hesitancy and Denies urinary urgency Musculoskeletal Musculoskeletal: Reports numbness Neurologic Neurologic: Denies abnormal movements, Denies loss of vision, Reports numbness, Denies other visual disturbances, Reports tremor(s) and Reports weakness Endocrine Endocrine: Denies flushing and Denies palpitations PFSH All Active Problems (Updated 02/02/24 @ 18:02 by Lyn You APRN) Weakness (Acute) Nausea (Acute) Hypokalemia (Acute) Anemia (Chronic) Discharge planning issues (Acute) Breast cancer metastasized to axillary lymph node (Acute) Diarrhea due to drug (Acute) Hypertension (Chronic) Medical History Pneumonia Urinary tract infection Renal carcinoma Renal cell carcinoma of left kidney Depression with anxiety Surgical History H/O left mastectomy H/O partial nephrectomy left, for RCC Social History Smoking/Tobacco Use Status: Never Smoking risk assessment performed?: Yes Alcohol Intake: never Drug use: Never Housing: house Do you feel safe at home: Yes Do you feel safe in your relationship?: Yes Additional Social history: lives with Jevon, who is supportive and helps care for her. Born in [place], grew up in [place] Meds Allergies and Home Medications Allergies Allergy/AdvReac Type Severity Reaction Status Date / Time Penicillins Allergy Mild Skin Rash Verified 02/02/24 12:56 Home Medications ?Medication ?Instructions ?Recorded ?Confirmed ?Type citalopram 40 mg tablet 40 mg PO HS 11/04/23 02/02/24 History folic acid 1 mg tablet 1 mg PO HS 11/04/23 02/02/24 History loratadine 10 mg tablet (Claritin) 10 mg PO HS 11/04/23 02/02/24 History Exam Narrative Exam Narrative: Neuro:alert and oriented to self, person, place time and situation. No neurological focal deficit, PERRLA Resp: Clear lung bilaterally Cardio: regular rhythm, S1, S2, no murmur, bilateral radial and dorsalis pedis pulses are positive GI: Abdomen is not distended, soft and slighlty tender to palp, bowel sounds are present : Negative Costovertebral angle tenderness, no bladder distension Back/spine/Pelvis: No back tenderness, normal alignment Integumentary: No skin lesions or rash Extremities: strength 5/5 to bilateral lower and upper extremities Psych: RASS 0, congruent mood and normal affect. Results Labs 02/02/24 13:35 02/02/24 13:35 Labs: Laboratory Results - last 24 hr 02/02/24 02/02/24 13:35 14:08 WBC 8.38 RBC 3.74 L Hgb 11.2 Hct 33.4 L MCV 89 MCH 29.9 MCHC 33.5 RDW 13.5 Plt Count 176 MPV 11.4 H Immature Gran % 0.4 Neutrophils % 82.8 Lymphocytes % 7.2 Monocytes % 8.2 Eosinophils % 1.0 Basophils % 0.4 Nucleated RBC % 0.0 Absolute Neutrophils 6.95 H Absolute Lymphocytes 0.60 L Absolute Monocytes 0.69 Absolute Eosinophils 0.08 Absolute Basophils 0.03 Sodium 141 Potassium 2.2 L* Chloride 102 Carbon Dioxide 26.4 Anion Gap 12.6 H BUN 15 Creatinine 1.7 H Est GFR (CKD-EPI 2020) 32.87 Glucose 107 H Calcium 8.6 Magnesium 0.8 L Total Bilirubin 0.49 AST 42 H ALT 28 Alkaline Phosphatase 80 Troponin I < 50 NT-Pro-B Natriuret Pep 436 H Total Protein 6.2 L Albumin 2.6 L COVID-19 Source Nasopharynx SARS-CoV-2 (PCR) Negative Influenza Type A (PCR) Negative Influenza Type B (PCR) Negative RSV (PCR) Negative Last Vital Signs Temp 36.3 C L 02/02/24 13:10 Pulse 94 H 02/02/24 13:30 Resp 16 02/02/24 13:30 BP 139/97 H 02/02/24 13:30 Pulse Ox 98 02/02/24 13:30 Time Spent Time spent with Patient: 55-74 minutes Time was spent: preparing to see the patient(eg.review tests), obtaining and/or reviewing separately otained hiistory, ordering medications,tests, procedures, referring, communicating with other health caregiver assisted living, indepentently interpreting results, counseling the patient and care coordination
--- NOTE | 2024-02-02 16:57 | W.PC.ACHO ---
Registration Status: Primary Language: Preferred Language: ED Information & Data Chief Complaint GenMedical 02/02/24 13:25 Triage Note pt was in MRI, port accessed 02/02/24 12:57 , pt labs drawn today, K found to be 2.8 Medical / Surgical History (Last Reviewed 02/02/24 @ 13:24 by Rosemary Rodriguez, WILLEM) Pneumonia Urinary tract infection Renal carcinoma Renal cell carcinoma of left kidney Depression with anxiety (Last Reviewed 02/02/24 @ 13:24 by Rosemary Rodriguez NP) H/O left mastectomy H/O partial nephrectomy Most Recent Vital Signs Temperature 36 C L 02/02/24 16:17 Temperature Source Temporal Artery Scan 02/02/24 16:05 Pulse 90 02/02/24 16:17 Pulse Rhythm Regular 02/02/24 16:17 Pulse 93 H 02/02/24 15:21 Respiratory Rate 20 02/02/24 16:17 Respiratory Effort Normal, Non-Labored 02/02/24 16:17 Respiratory Depth Normal 02/02/24 16:17 Respiratory Pattern Normal 02/02/24 13:10 Blood Pressure 125/84 02/02/24 16:17 Blood Pressure Mean 121 02/02/24 14:16 Blood Pressure Position Sitting 02/02/24 13:10 Pulse Oximetry 99 02/02/24 16:17 Oxygen Delivery Method Room Air 02/02/24 16:17 Oxygen Flow Rate 0 02/02/24 16:17 Pain Level 2 02/02/24 16:17 Allergies Penicillins Allergy (Mild, Verified 02/02/24 12:56) Skin Rash Precautions Isolation Standard precaution 02/02/24 13:10 IV IV Catheter Type [Right Port-a-cath (single) Proximal Port] Diet Orders Category Date Time Status Heart Healthy Eating [DIET] Nutrition 02/02/24 Dinner Active Diagnostics 02/02/24 02/02/24 02/02/24 Range/Units 16:22 14:08 13:35 WBC 8.38 (4.4-10.8) 10^3/uL RBC 3.74 L (3.93-5.22) 10^6/uL Hgb 11.2 (11.2-15.7) g/dL Hct 33.4 L (36.0-46.0) % MCV 89 (80-95) fL MCH 29.9 (27.0-33.0) pg MCHC 33.5 (32.0-36.0) % RDW 13.5 (11.7-14.6) % Plt Count 176 (130-400) 10^3/uL MPV 11.4 H (8.0-11.0) fL Immature Gran % 0.4 % Neutrophils % 82.8 % Lymphocytes % 7.2 % Monocytes % 8.2 % Eosinophils % 1.0 % Basophils % 0.4 % Nucleated RBC % 0.0 (0.0-0.3) % Absolute Neutrophils 6.95 H (1.2-6.7) 10^3/uL Absolute Lymphocytes 0.60 L (1.2-3.4) 10^3/uL Absolute Monocytes 0.69 (0.1-0.8) 10^3/uL Absolute Eosinophils 0.08 (0.0-0.7) 10^3/uL Absolute Basophils 0.03 (0.0-0.2) 10^3/uL Sodium 141 (136-145) mmol/L Potassium 2.2 L* (3.5-5.1) mmol/L Chloride 102 (98-107) mmol/L Carbon Dioxide 26.4 (21.0-32.0) mmol/L Anion Gap 12.6 H (3-11) mmol/L BUN 15 (7-18) mg/dL Creatinine 1.7 H (0.55-1.02) mg/dL Est GFR (CKD-EPI 2020) 32.87 (mL/min/1.73m2) Glucose 107 H (74-106) mg/dL Calcium 8.6 (8.5-10.1) mg/dL Magnesium 0.8 L (1.8-2.4) mg/dL Total Bilirubin 0.49 (0.2-1.0) mg/dL AST 42 H (15-37) U/L ALT 28 (14-59) U/L Alkaline Phosphatase 80 (46-116) U/L Troponin I Pending < 50 (< or =60) ng/L NT-Pro-B Natriuret Pep 436 H (<300) pg/mL Total Protein 6.2 L (6.4-8.2) g/dL Albumin 2.6 L (3.4-5.0) g/dL COVID-19 Source Nasopharynx SARS-CoV-2 (PCR) Negative (Negative) Influenza Type A (PCR) Negative (Negative) Influenza Type B (PCR) Negative (Negative) RSV (PCR) Negative (Negative) Intake and Output - 24 Hour Total 02/02/24 12:46 thru 02/02/24 16:17 Intake Total 100 Balance 100 Weight 110.132 kg Intake: IV 100 Falls Risk Assessment History of Falls Previous History 02/02/24 16:17 Contributing Factors Unstable,Impairments, 02/02/24 16:17 Incontinence Ambulatory Aids Uses ambulatory device + 02/02/24 16:17 Tubes/Lines With any additional score 02/02/24 16:17 Gait Evaluation W/any additional score 02/02/24 16:17 Cognition No cognitive impairment 02/02/24 16:17 Fall Total Score 94 02/02/24 16:17 Level of Risk Maximum Risk 02/02/24 16:17 Problems (Last Reviewed 02/02/24 @ 13:24 by Rosemary Rodriguez NP) Nausea (Acute) Hypokalemia (Acute) Discharge planning issues (Acute) Hypertension (Chronic) v v v v v v v v v Sending and/or Receiving Nurses: Please use comment section below to note any information pertinent to the patient hand-off not included above. Information / Comments:Report given by CUSTOMER RECORDS DIVISION SUPERVISOR Tiny, Patient is alert and oriented x 3 accompanied by , very weak for transfer to bed. Apparently, she came from MRI appointment and they called her back because of critical values of lab tests performed this morning. Pt came up with IV's Potassium and Magnesium. Patient is pale and obese. Oriented to call lights system. Report received from:
[2024-02-02 17:39] LABS: Troponin I < 50 ng/L (< or =60)
[2024-02-02] MEDS: POTASSIUM CHLORIDE 20 MEQ/100 ML BAG 50 MEQ IVINF ×2 (18:19→19:03)
[2024-02-02] MEDS: Normal Saline Flush 10 ML SYR IVP ×3 (18:29→21:06)
[2024-02-02] MEDS: Loratidine 10 MG TAB PO (19:39)
[2024-02-02] MEDS: Folic Acid 1 MG TAB PO (19:39)
[2024-02-02] MEDS: Citalopram 20 MG TAB PO (19:39)
[2024-02-02 20:01] LABS: Bilirubin Small (Negative); Blood Trace-intact (Negative); Clarity Sl Cloudy (Clear); Glucose Negative (Negative); Ketones Negative (Negative); Leukocyte Esterase Small (Negative); Nitrite Negative (Negative); Specific Gravity 1.025 (1.005-1.025); Urobilinogen 0.2 mg/dL (Up to 0.2)
[2024-02-02 20:09] LABS: Epithelial Cells Many HPF (Negative); Other Cells Moderate Yeast (Negative); RBC 0-2 HPF (0-2); WBC 20-50 HPF (0-5)
[2024-02-02 20:10] LABS: Bacteria Rare HPF (Negative); C & S Indicated? No/Sq. Contamination; Casts 0-2 Hyaline LPF (Negative); Crystals Negative HPF (Negative); Mucus Trace (Negative)
[2024-02-02 22:33] LABS: Potassium 3.1 mmol/L (3.5-5.1)
[2024-02-02 22:35] LABS: Magnesium 2.2 mg/dL (1.8-2.4)
[2024-02-03] VITALS (7 sets, daily range): BP systolic 110–133; BP diastolic 62–89; PULSE 79–108; RESP 16–18; TEMP 35.9–36.6; O2SAT 97–100
[2024-02-03] MEDS: Normal Saline Flush 10 ML SYR IVP ×3 (07:34→19:52)
--- NOTE | 2024-02-03 08:01 | PT.INIE ---
Date of service: 02/03/24 Time of Service: 08:00 PT Notes Visit Reasons: Hypomagnesemia,Hypokalemia Date: 02/03/24 Referring Doctor: Lyn You PT Orders: PT CONSULT: Urgent, safety consult for D/C Precautions: Fall risk Patient Profile/Admitting Diagnosis: 64-year-old female with a past medical history of breast cancer, renal cell carcinoma of the left kidney with partial nephrectomy with last chemotherapy session in November 2023, depression with anxiety, presented to the ED at [facility] 02/02/24 with complaint of shakiness, nausea, dry heaving beginning 02/01/24. The patient at the previous admission for severe sepsis, UTI, and demand ischemia in November with similar initial presentation. Case was consulted and patient admitted to the medical surgical floor with telemetry for management of hypomagnesemia, hypokalemia, nausea and shakiness post ER work up and blood work. Social History/Home Situation: Lives with in a private multi level home, she resides on one floor with a step over tub Equipment Owned/DME: Walker, WC Subjective: Had been having weekly falls through the month of November, reports she has not actually been doing much the past 2-3 weeks but staying in bed not allowing for falls. She refuses to use a walker, fearful it will fall, and prefers her helping her. He assists with her transfers to the commode, and to a chair. Uses a WC for longer distance mobility and community transportation, with assisting with car transfer. They have a ramp to enter/exit the home. She unable to shower due to lack of strength to stand and enter tub, so she is only doing sponge baths. She stubbed her toe a few months ago, and has not been able to lift her right big toe since - her PCP suggested it was a strain. However, now she keep tripping on the toe and always wears water shoes to help keep it up, and they are the only shoe she can don without pain. She does not want to participate in outpatient PT at home, as she had a bad experience. Objective: General Observation: Lying in hospital bed, no lines. Pleasant, cognitively appropriate. Mental Status: A & O x 3 ROM: Right Upper Extremity: Active scapular plane 170, abd 90 with shoulder hike, elbow, wrist and digits otherwise WNL Left Upper Extremity: Active scapular plane 170, abd 90 with shoulder hike, elbow, wrist and digits otherwise WNL Right Lower Extremity: Active hip flex 90 deg, knee 10-100 deg, DF 0 deg, unable to extend big toe resting at 20 deg flexion Left Lower Extremity: Active hip flex 90 deg, knee 10-100 deg, DF 0 deg Strength: Right Upper Extremity: Deonna flex 3/5, abd 3/5 to 45 deg with shoulder hike, elbow flex and ext 4+/5, wrist and digits grossly 4/5 Left Upper Extremity: Deonna flex 3/5, abd 3/5 to 45 deg with shoulder hike, elbow flex and ext 4+/5, wrist and digits grossly 4/5 Right Lower Extremity: Hip flex 3/5, knee ext 4+/5, knee flex 4/5, DF 3/5, PF 3+/5, big toe ext 0/5 Left Lower Extremity: Hip flex 3/5, knee ext 4+/5, knee flex 4/5, DF 3/5, PF 3+/5, big toe ext 4/5 Bed Mobility/Transfers: Bed mobility: Independent Supine at 40 deg HOP to EOB: Independent EOB to stand at RW: CG x 1 Stand to sit: Supervision Bed to chair: CG x 1, 4 steps Able to Independent adjust position in chair Static standing RW x 20 seconds only Gait: 4 steps, RW, CG x 1, otherwise unable - becomes very shaky, and gets dizzy. Balance: Static Sitting: Good Dynamic Sitting: Good Static Standing: Poor Dynamic Standing: Poor Stage 4 Balance Test Time (seconds) Feet together 0 Partial tandem 0 Tandem 0 One foot 0 Special Tests: Mobility Limitations Standardized Measure [facility] AM-PAC 6 clicks Basic Mobility Inpatient Short Form: 54% disability Informed Consent/Education: Patient instructed in purpose of PT consult and plan of care. Treatment: Initial evaluation 12866 Advised on Independent exercises of: Active DF Glutes sets LAQ Tricep push downs x 10 each, throughout the day. Written on patient board for reminders Assessment: Patient is a 64 year old female referred to physical therapy services with reason for PT evaluation of safety for return home with admitted diagnosis of hypomagnesemia, hypokalemia, nausea and shakiness post chemo for metastasize breast cancer in November 2023. Patient presents with with strength, balance, and gait impairments related to acute medical issues. She requires skilled PT intervention to maximize safety mobility to allow for safe transition home once medically stable, and attend to below deficits. She is of high fall risk, and not safe for return home in current state and will require HHPT service once returned home, to facilitate improved functional ability. I also recommend ortho consultation for evaluation of Rt big toe, and referral for fabrication of orthotic or device to stabilize big toe as surgery is currently no an option for her, in setting of suspect of EHL rupture. Impairment level findings: Global weakness Poor balance Mobility deficits EHL dysfunction, and DF weakness Impairments are contributing to the following functional limitations: Fall risk and history of high fall frequency CGA for transfers Poor confidence and ability to ambulate household distance, refusal to use AD Unable to perform self care Independent Patient is assessed as low complexity based on the following: History: Weakness (Acute) Nausea (Acute) Hypokalemia (Acute) Anemia (Chronic) Discharge planning issues (Acute) Breast cancer metastasized to axillary lymph node (Acute) Diarrhea due to drug (Acute) Hypertension (Chronic) Medical History Pneumonia Urinary tract infection Renal carcinoma Renal cell carcinoma of left kidney Depression with anxiety Surgical History H/O left mastectomy H/O partial nephrectomy left, for RCC Examination: impairment and functional limitations as noted above Presentation: Unstable Decision Making: Easy Goals: Goals X1 week 1. Supine-Sit : Distant supervision RW 2. Sit-Supine : Distant supervision RW 3. Sit-Stand : Distant supervision RW 4. Stand-Sit : Distant supervision RW 5. Bed-Chair : Supervision RW 6. Chair-Bed : Supervision RW 7. Gait : 20 steps, RW, CGA 8. Can stand for 2 minutes RW Plan of Care/Treatment Plan: 1-2x/day, 7 days/week x 1 week. Focus on use of RW utilization with all transfers and ambulation Plan of care has been reviewed with the AERIAL PHOTOGRAPH INTERPRETER providing the service under Physical Therapy direction. Initiate Physical Therapy intervention for strengthening, bed mobility, transfers, gait, stairs, balance training, use of assistive device. DISCHARGE RECOMMENDATIONS: HH PT versus SNF, depending on progression towards goals. If discharged home requires home health skilled physical therapy. Patient resistant to use of AD, but will require RW which she already requires at time of discharge to improve safety and reduce risk of falls. TREATMENT CODE/TIME: 11377, 45 minutes, 8 AM to 8:45 AM Abena Mehta MPT [facility]
--- NOTE | 2024-02-03 11:11 | INITIAL_ITS ---
Date of service: 02/03/24 Time of Service: 11:11 Care Management Initial Assmt Initial Assessment Reason for Hospitalization: Hypomagnesemia, hypokalemia Functional Status/Living Situation Patient Presentation: Patient was using the bathroom when CM attempted to meet with her- in room supporting her. Town of Residence: [place] Resides with: Spouse (Spouse ( Redd and grandson)) Significant Other/Family: Local (Sarah has 4 children. Two live locally, one is in [place] and the other is in [place]) Employment Status: Retired Instrumental Activities of Daily Living (ADLs): Requires support (needs some assistance at times which is provided by ) Medications Medication Management: No Issues/Barriers identified Physical Functioning/Mobility Assistive Device: PT is recommending FWW upon discharge for home setting. Advance Directives Advance Directives: Do you have an Advance Directive: Y 11/04/23 16:30 AD On File at [facility]: Y 02/02/24 12:48 Date Asked 02/02/24 02/02/24 12:57 AD Date Reviewed 12/30/23 12/30/23 08:24 COLST On File at [facility] No 11/04/23 16:30 COLST Date Scanned Comment: Bibiana as agent, Redd as alternate Code Status Resuscitation Status Full Code Insurance Coverage/Financial Issues Insurance: [employer] [facility] Care Team Visit Care Team Role Provider Type Rob Ziegler Primary Care Provider NON-[facility] STAFF PHYSICIAN InPatient [facility] Other Providers OTHER Rosemary Rodriguez NP Emergency Provider NURSE PRACTITIONER Tommy Stark MD Admit Provider [facility] STAFF PHYSICIAN Attending Provider Discharge Potential Discharge Needs: PT Evaluation (Recommendation for FWW, possible SNF dependent on progress mobility during hospitalization) Anticipated Barriers to Discharge: None Identified Patient/Family Education Needs: Review discharge instructions, discuss Ask Me Three Transportation: Private vehicle Plan: Anticipate Sarah will be discharged home with new [facility] PT services and FWW when medically stable. She will follow up with her PCP and transport via private vehicle with family. CM will continue to support discharge needs. PFSH All Active Problems (Updated 02/03/24 @ 14:27 by Soumya Elaine NP) Weakness (Acute) Nausea (Acute) Hypokalemia (Acute) Anemia (Chronic) Discharge planning issues (Acute) Breast cancer metastasized to axillary lymph node (Acute) Diarrhea due to drug (Acute) Hypertension (Chronic) Medical History Pneumonia Urinary tract infection Renal carcinoma Renal cell carcinoma of left kidney Depression with anxiety Surgical History H/O left mastectomy H/O partial nephrectomy left, for RCC Social History Smoking/Tobacco Use Status: Never Smoking risk assessment performed?: Yes Alcohol Intake: never Drug use: Never Housing: house Do you feel safe at home: Yes Do you feel safe in your relationship?: Yes Additional Social history: lives with Jevon, who is supportive and helps care for her. Born in [place], grew up in [place] SDOH(Care Management) Screening Will the Patient Participate in the Screening?: Yes Do you worry about having a steady place to live?: no Problems where you live: no known problems In the past 12 months, have you had to go without electric, gas, oil or water in your home?: no Have you or anyone in your house had to go without enough food to eat?: no Has lack of transportation kept you from medical appointments or from doing things needed for daily living?: no Has anyone in your support network made you feel unsafe for any reason?: no Anticipated HH Services Anticipated HH Services at Discharge [facility] (O/E) Services Needed (PT).
--- NOTE | 2024-02-03 12:44 | W.PM.PROGNOT ---
Date of Service Date of service: 02/03/24 Time of Service: 12:44 Assessment and Plan Assessment and plan (1) Hypokalemia: Status: Acute Assessment and plan: K 3.1 40 meq IV given check in am (2) Depression with anxiety: Assessment and plan: stable, continue home citalopram (3) Hypomagnesemia: Status: Resolved Assessment and plan: 2.2 trend (4) Nausea: Status: Acute Assessment and plan: Patient denies nausea today; she is chronically taking ondansetron PRN (5) Weakness: Status: Acute Assessment and plan: PT consult (6) Discharge planning issues: Status: Acute Assessment and plan: d/c home when medically cleared Subjective Subjective Patient reports: no new complaints, tolerating a regular diet, voiding w/o difficulty, bowel movement and afebrile; denies diarrhea, nausea, vomiting or shortness of breath Interval history since last seen: Complain of some seeing spots when standing, getting off of the bed and getting off of the bedside commode. Exam Narrative Exam Narrative: Alert and oriented chronically ill-appearing female, alert and oriented x 4. no icterus, MMM. lungs clear to auscultation, cardiac rate rhythm regular, no abdominal tenderness or distention. no significant edema, no tenderness in bilateral lower extremities Psych Mental Status: mental status grossly normal Speech and Movement: speech and movement normal Mood: congruent mood Affect: normal affect Objective Last Vital Signs Temp 36.6 C 02/03/24 11:23 Pulse 82 02/03/24 11:50 Resp 16 02/03/24 11:23 BP 126/82 02/03/24 11:50 Pulse Ox 98 02/03/24 11:23 Laboratory Results - last 24 hr 02/02/24 02/02/24 02/02/24 13:35 14:08 17:12 WBC 8.38 RBC 3.74 L Hgb 11.2 Hct 33.4 L MCV 89 MCH 29.9 MCHC 33.5 RDW 13.5 Plt Count 176 MPV 11.4 H Immature Gran % 0.4 Neutrophils % 82.8 Lymphocytes % 7.2 Monocytes % 8.2 Eosinophils % 1.0 Basophils % 0.4 Nucleated RBC % 0.0 Absolute Neutrophils 6.95 H Absolute Lymphocytes 0.60 L Absolute Monocytes 0.69 Absolute Eosinophils 0.08 Absolute Basophils 0.03 Sodium 141 Potassium 2.2 L* Chloride 102 Carbon Dioxide 26.4 Anion Gap 12.6 H BUN 15 Creatinine 1.7 H Est GFR (CKD-EPI 2020) 32.87 Glucose 107 H Calcium 8.6 Magnesium 0.8 L Total Bilirubin 0.49 AST 42 H ALT 28 Alkaline Phosphatase 80 Troponin I < 50 < 50 NT-Pro-B Natriuret Pep 436 H Total Protein 6.2 L Albumin 2.6 L Urine Color Urine Clarity Urine pH Ur Specific Anselmo Urine Protein Urine Ketones Urine Blood Urine Nitrite Urine Bilirubin Urine Urobilinogen Ur Leukocyte Esterase Urine RBC Urine WBC Ur Epithelial Cells Urine Crystals Urine Bacteria Urine Casts Urine Mucus Urine Other Ur Culture Indicated? Urine Glucose COVID-19 Source Nasopharynx SARS-CoV-2 (PCR) Negative Influenza Type A (PCR) Negative Influenza Type B (PCR) Negative RSV (PCR) Negative 02/02/24 02/02/24 19:45 22:00 WBC RBC Hgb Hct MCV MCH MCHC RDW Plt Count MPV Immature Gran % Neutrophils % Lymphocytes % Monocytes % Eosinophils % Basophils % Nucleated RBC % Absolute Neutrophils Absolute Lymphocytes Absolute Monocytes Absolute Eosinophils Absolute Basophils Sodium Potassium 3.1 L Chloride Carbon Dioxide Anion Gap BUN Creatinine Est GFR (CKD-EPI 2020) Glucose Calcium Magnesium 2.2 Total Bilirubin AST ALT Alkaline Phosphatase Troponin I NT-Pro-B Natriuret Pep Total Protein Albumin Urine Color Yellow Urine Clarity Sl Cloudy Urine pH 5.0 Ur Specific Anselmo 1.025 Urine Protein 30 H Urine Ketones Negative Urine Blood Trace-intact H Urine Nitrite Negative Urine Bilirubin Small H Urine Urobilinogen 0.2 Ur Leukocyte Esterase Small H Urine RBC 0-2 Urine WBC 20-50 H Ur Epithelial Cells Many Urine Crystals Negative Urine Bacteria Rare Urine Casts 0-2 Hyaline Urine Mucus Trace Urine Other Moderate Yeast Ur Culture Indicated? No/Sq. Contamination Urine Glucose Negative COVID-19 Source SARS-CoV-2 (PCR) Influenza Type A (PCR) Influenza Type B (PCR) RSV (PCR) Time Spent with Patient Time Spent with Patient: 35-49 minutes Time was spent: preparing to see the patient(eg.review tests), ordering medications,tests, procedures, referring, communicating with other health inspector health care facilities, indepentently interpreting results, counseling the patient and care coordination
[2024-02-03 12:47] LABS: Abs Immature Grans 0.03 10^3/uL (0.0-0.06); Absolute Basophil Count 0.04 10^3/uL (0.0-0.2); Absolute Eosinophil Count 0.25 10^3/uL (0.0-0.7); Absolute Lymphocyte Count 0.95 10^3/uL (1.2-3.4); Absolute Monocyte Count 0.73 10^3/uL (0.1-0.8); Basophils % 0.4 %; Eosinophils % 2.8 %; HCT 31.8 % (36.0-46.0); HGB 10.8 g/dL (11.2-15.7); Immature Grans % 0.3 %; Lymphocytes % 10.7 %; MCH 30.4 pg (27.0-33.0); MCV 90 fL (80-95); MPV 11.2 fL (8.0-11.0); Monocytes % 8.2 %; Neutrophils % 77.6 %; Platelet Count 204 10^3/uL (130-400); RBC 3.55 10^6/uL (3.93-5.22); RDW 13.4 % (11.7-14.6); RDW-SD 44.7 fL
[2024-02-03 13:14] LABS: Anion Gap 11.9 mmol/L (3-11); BUN 16 mg/dL (7-18); CO2 25.1 mmol/L (21.0-32.0); CREATININE 1.8 mg/dL (0.55-1.02); Calcium 9.2 mg/dL (8.5-10.1); Chloride 102 mmol/L (98-107); Estimated GFR 30.69 (mL/min/1.73m2); Glucose 123 mg/dL (74-106); Potassium 3.1 mmol/L (3.5-5.1); Sodium 139 mmol/L (136-145)
[2024-02-03 13:15] LABS: Magnesium 2.1 mg/dL (1.8-2.4)
--- NOTE | 2024-02-03 14:16 | PT.INTREAT ---
PT Notes Visit Reasons: Hypomagnesemia,Hypokalemia SUBJECTIVE: Has had to stand a lot for vital check and transfer to bed from chair, so she is feeling tired today. OBJECTIVE:? Therapeutic procedures (93712, 13 minx1): Instruction in therapeutic exercises to develop strength and endurance, range of motion and flexibility. ? HEP instruction and review:? Review DF, LAQ, glute sets written on board ? Provided skilled instruction in proper exercise performance: ?? Provided skilled manual cues to facilitate proper muscle recruitment and/or movement?pattern: Seated: LAQ x10 anthony, DF x 15, scap squeeze x 10, tricep vs green tband x 10, bicep curl vs green band x 10, ebonie press x 10, bridge x 5x2 Therapeutic activities (02274, 10 min)x1: Activities to improve dynamic activities designed to improve specific functional tasks STS x 3, cues for proper use of hands on band and use of RW Sit to supine, position correction to head of bed, and bridge use for repositioning in bed Stand: 30 sec x 1, 10 sec x 2 at RW, cues for glutes squeeze and posterior chain activation Assessment: Fatigues quickly, after a full day of transfers activities. Willing to attempt movement pattern changes, working over fear of falling and attempting standing activities. Open to use of RW. Plan: 1-2x/day, 7 days/week x 1 week. Focus on use of RW utilization with all transfers and ambulation Plan of care has been reviewed with the PERSONNEL OFFICER providing the service under Physical Therapy direction. Initiate Physical Therapy intervention for strengthening, bed mobility, transfers, gait, stairs, balance training, use of assistive device. DISCHARGE RECOMMENDATIONS: HH PT versus SNF, depending on progression towards goals. Total Treatment Time: 23 min CC:
[2024-02-03] MEDS: POTASSIUM CHLORIDE 20 MEQ/100 ML BAG 50 MEQ IVINF ×2 (14:48→16:33)
--- NOTE | 2024-02-03 16:28 | CHAPLAIN ---
This is Sarah's third visit here during her cancer treatments. She lives in [place] but prefers to come come to [facility] or [facility] for care. Sarah said she decided in November to not have any more chemo treatments. Both she and the oncologist agreed to stop at six and forego the last two as the side effects were causing more problems than the chemo was helping. Sarah said they are considering moving closer [facility] and [place] or [facility] so she can be closer to where she received her care. When I asked what I could get for her, she said the last 14 months back. Her Redd is with her and is very supportive.
[2024-02-03] MEDS: Folic Acid 1 MG TAB PO (19:52)
[2024-02-03] MEDS: Loratidine 10 MG TAB PO (19:52)
[2024-02-03] MEDS: Citalopram 20 MG TAB PO (19:52)
[2024-02-04 03:24] VITALS: BP 115/76; PULSE 82; RESP 18; TEMP 36.5; O2SAT 99
[2024-02-04 06:16] LABS: Abs Immature Grans 0.02 10^3/uL (0.0-0.06); Absolute Basophil Count 0.03 10^3/uL (0.0-0.2); Absolute Eosinophil Count 0.27 10^3/uL (0.0-0.7); Absolute Neutrophil Count 4.38 10^3/uL (1.2-6.7); Basophils % 0.5 %; Eosinophils % 4.4 %; HCT 28.6 % (36.0-46.0); HGB 9.4 g/dL (11.2-15.7); Immature Grans % 0.3 %; Lymphocytes % 13.1 %; MCH 29.9 pg (27.0-33.0); MCHC 32.9 % (32.0-36.0); MCV 91 fL (80-95); MPV 11.7 fL (8.0-11.0); Monocytes % 9.8 %; Neutrophils % 71.9 %; Platelet Count 155 10^3/uL (130-400); RBC 3.14 10^6/uL (3.93-5.22); RDW 13.5 % (11.7-14.6); RDW-SD 44.9 fL
[2024-02-04 06:43] LABS: Anion Gap 9.1 mmol/L (3-11); BUN 18 mg/dL (7-18); CO2 26.9 mmol/L (21.0-32.0); CREATININE 1.7 mg/dL (0.55-1.02); Calcium 8.8 mg/dL (8.5-10.1); Chloride 104 mmol/L (98-107); Estimated GFR 32.87 (mL/min/1.73m2); Glucose 104 mg/dL (74-106); Magnesium 1.9 mg/dL (1.8-2.4); Potassium 3.2 mmol/L (3.5-5.1); Sodium 140 mmol/L (136-145)
[2024-02-04 07:19] VITALS: BP 121/75; PULSE 81; RESP 18; TEMP 36.5; O2SAT 99
[2024-02-04] MEDS: Normal Saline Flush 10 ML SYR IVP ×2 (07:35→20:19)
[2024-02-04] MEDS: Acetaminophen 325 MG TAB 650 MG PO ×3 (09:05→20:18)
[2024-02-04] MEDS: Potassium Chloride 20 MEQ TABCR PO ×3 (09:20→16:24)
[2024-02-04] MEDS: POTASSIUM CHLORIDE 10 MEQ/100 ML BAG 100 MEQ IVINF ×2 (09:20→10:36)
--- NOTE | 2024-02-04 10:49 | PTTR_ITS ---
PT Notes Visit Reasons: Hypomagnesemia,Hypokalemia 02/04/24 SUBJECTIVE: Sarah reports right rib pain, and is working with nursing on pain m anagement. She is not interested in walking, but is agreeable to a position change. OBJECTIVE:? Therapeutic procedures (38087, 15 minx1): Instruction in therapeutic exercises to develop strength and endurance, range of motion and flexibility. ? HEP instruction and review:? Review DF, LAQ, glute sets written on board ? Provided skilled instruction in proper exercise performance: Requires frequent cues and redirection for participation Provided skilled manual cues to facilitate proper muscle recruitment and/or movement?pattern: Seated LAQ 10x Seated march 10x attempt shoulder flexion, but unable to tolerate Therapeutic activities (45259, 15 min)x1: Activities to improve dynamic activities designed to improve specific functional tasks STS x 5, cues for proper use of hands on band and use of RW Sit to supine, position correction to head of bed, and bridge use for repositioning in bed Stand: 30 sec x 3, 10 sec x 2 at RW Bed-chair transfer with FWW, CGA, max cues for safety and technique -reviewed FWW management, with good carryover Assessment: Apprehensive about participating in PT intervention, and requires significant encouragement and redirection. Fatigues easily with short distance ambulation and transfers. Plan: 1-2x/day, 7 days/week x 1 week. Focus on use of RW utilization with all transfers and ambulation Plan of care has been reviewed with the GEAR DESIGN ENGINEER providing the service under Physical Therapy direction. Initiate Physical Therapy intervention for strengthening, bed mobility, transfers, gait, stairs, balance training, use of assistive device. DISCHARGE RECOMMENDATIONS: Home with family support and HH PT Total Treatment Time: 30 minutes CC:
[2024-02-04 11:33] VITALS: BP 123/85; PULSE 90; RESP 18; TEMP 36.2; O2SAT 98
--- NOTE | 2024-02-04 11:52 | PHA.REVIEW2 ---
Pharmacy Admission Review Admission Clinical Review Admission Pharmacy Review: Weakness (Acute) Nausea (Acute) Hypokalemia (Acute) Discharge planning issues (Acute) Penicillins Allergy (Mild, Verified 02/02/24 12:56) Skin Rash Resuscitation Status Full Code Height 5 ft 4 in Weight 110.132 kg Pharmacy Admission Review Renal Dosing Renal Dosing: BUN 18 mg/dL (7-18) 02/04/24 06:00 Creatinine 1.7 mg/dL (0.55-1.02) H 02/04/24 06:00 Medications needing adjustments: Reviewed (CrCl 39.5 mL/min) List of meds needing interventions: Current medications are okay Anticoagulation Anticoagulation: Hgb 9.4 g/dL (11.2-15.7) L 02/04/24 06:00 Hct 28.6 % (36.0-46.0) L 02/04/24 06:00 Plt Count 155 10^3/uL (130-400) 02/04/24 06:00 Creatinine 1.7 mg/dL (0.55-1.02) H 02/04/24 06:00 DVT Prophylaxis: Intervened (Reached out to provider as none was ordered, provider asked that I put in order for Lovenox 40mg daily) Medications: Enoxaparin (40mg daily) Relevant Labs Relevant Labs: Sodium 140 mmol/L (136-145) 02/04/24 06:00 Potassium 3.2 mmol/L (3.5-5.1) L 02/04/24 06:00 Chloride 104 mmol/L (98-107) 02/04/24 06:00 Magnesium 1.9 mg/dL (1.8-2.4) 02/04/24 06:00 Electrolytes, C-Reactive P, ESR: Reviewed (K 3.2 - repleting with 10mEq IV x 2 plus oral supplementation added) Cardiac Review Cardiac Review: Troponin I < 50 ng/L (< or =60) 02/02/24 17:12 NT-Pro-B Natriuret Pep 436 pg/mL (<300) H 02/02/24 13:35 BP, HR, EF%: Reviewed (BP and HR WNL) QTc Review QTc: Reviewed (461 from 02/02/24) IV to PO Switch IV Medications: Reviewed (ondansetron) Home Meds Home Med List reviewed: Reviewed Current Meds Current Medication Order Review: Intervened Comments: Added patch removal order for lidocaine
[2024-02-04] MEDS: Enoxaparin 40 MG/0.4 ML SYR SC (11:55)
--- NOTE | 2024-02-04 13:32 | PT.INTREAT ---
PT Notes Visit Reasons: Hypomagnesemia,Hypokalemia 02/04/24 SUBJECTIVE: Sarah states that she is very fatigued. She is up to the commode at initiation of session and states that she doesn't have much energy. OBJECTIVE:? Therapeutic activities (56275, 15 min)x1: Activities to improve dynamic activities designed to improve specific functional tasks STS x 2, cues for proper use of hands on band and use of RW. Requires min A from commode, supervision from EOB. Sit to supine, position correction to head of bed, and bridge use for repositioning in bed. Supervision only, with increased time to perform. Requires cues for technique. Ambulates 6' with FWW, CGA. Demonstrates bilat knee flexion and heavy reliance on FWW, marching type gait pattern for right foot clearance. Demonstrates good equipment management during ambulation. Assessment: Continues to require significant encouragement and redirection. Fatigues easily with short distance ambulation and transfers. Improved safety with use of FWW this afternoon. Plan: 1-2x/day, 7 days/week x 1 week. Plan of care has been reviewed with the MANAGER MATH providing the service under Physical Therapy direction. Initiate Physical Therapy intervention for strengthening, bed mobility, transfers, gait, stairs, balance training, use of assistive device. DISCHARGE RECOMMENDATIONS: Home with family support and HH PT Total Treatment Time: 15 minutes ([id number]) CC:
[2024-02-04] MEDS: Lidocaine 5% Patch 2 PATCH TP (14:41)
[2024-02-04 15:07] VITALS: BP 111/76; PULSE 85; RESP 15; TEMP 36.4; O2SAT 100
--- NOTE | 2024-02-04 15:47 | PGE_ITS ---
Date of Service Date of service: 02/04/24 Time of Service: 15:47 Assessment and Plan Assessment and plan (1) Hypokalemia: Status: Acute Assessment and plan: Continue supplementation oral and IV Consider spironolactone if continues to remain hypokalemic (2) Depression with anxiety: Assessment and plan: stable, continue home citalopram (3) Hypomagnesemia: Status: Resolved Assessment and plan: Repleted continue to trend and replete as needed (4) Nausea: Status: Acute Assessment and plan: Patient denies nausea today; she is chronically taking ondansetron PRN (5) Weakness: Status: Acute Assessment and plan: PT consult (6) Discharge planning issues: Status: Acute Assessment and plan: d/c home when medically cleared Discussed with Dr. Stark Subjective Subjective Patient reports: still having pain (bilateral shoulders), tolerating liquids well, tolerating a regular diet and afebrile; denies shortness of breath Interval history since last seen: c/o bilateral shoulder pain, worse with movement, responds to tylenol Exam Narrative Exam Narrative: Chronically ill-appearing elderly female in no acute distress head is atraumatic eyes nonicteric noninjected oral mucosa slightly dry neck is supple full range of motion no JVD cardiovascular regular rate and rhythm respirations even and unlabored abdomen is round soft nontender. Skin with no rashes or lesions she moves all extremities neurologic she is awake alert oriented no focal deficits Objective Last Vital Signs Temp 36.4 C L 02/04/24 15:07 Pulse 85 02/04/24 15:07 Resp 15 02/04/24 15:07 BP 111/76 02/04/24 15:07 Pulse Ox 100 02/04/24 15:07 Laboratory Results - last 24 hr 02/04/24 06:00 WBC 6.10 RBC 3.14 L Hgb 9.4 L Hct 28.6 L MCV 91 MCH 29.9 MCHC 32.9 RDW 13.5 Plt Count 155 MPV 11.7 H Immature Gran % 0.3 Neutrophils % 71.9 Lymphocytes % 13.1 Monocytes % 9.8 Eosinophils % 4.4 Basophils % 0.5 Nucleated RBC % 0.0 Absolute Neutrophils 4.38 Absolute Lymphocytes 0.80 L Absolute Monocytes 0.60 Absolute Eosinophils 0.27 Absolute Basophils 0.03 Sodium 140 Potassium 3.2 L Chloride 104 Carbon Dioxide 26.9 Anion Gap 9.1 BUN 18 Creatinine 1.7 H Est GFR (CKD-EPI 2020) 32.87 Glucose 104 Calcium 8.8 Magnesium 1.9 Time Spent with Patient Time Spent with Patient: 25-34 minutes Time was spent: preparing to see the patient(eg.review tests), ordering medica tions,tests, procedures and indepentently interpreting results
--- NOTE | 2024-02-04 16:52 | CHAPLAIN ---
Sarah was resting in bed when I visited. Her was with her. Sarah said she found out she's staying at least one more night because her potassium continues to be low. She was hoping to go home today. Sarah lives in the [facility] but prefers to come to [facility] for care. Sarah talked about her grandson, who lives with them, and her upcoming surgery at [facility]. I will continue to visit.
--- NOTE | 2024-02-04 17:09 | CMPROGNOTE_ITS ---
Date of service: 02/04/24 Time of Service: 17:09 Care Management Progress Note Progress Note Text Progress Note Text: Sarah was lying in bed, of 42 years, Redd at her bedside. She shared positive remarks about her care, discussed family stressors-including HCA changes as her friend abruptly moved out of the home. CM agreed to check [facility] for updated AD-Sarah was able to update herself on the website. CM provided positive reinforcement for Sarah's ability to self manage her own care needs and coordination. Sarah reports she will have surgery at [facility] on 02/09/24. She reports she has been behaving at [facility] and using her FWW but prefers not to use one at home. She reports mostly staying in her room, and utilizing furniture to navigate. She does share that she has fallen multiple times in the last month, including during a PCP visit-she attributes this to what she believes is a torn tendon in her foot, causing her right big toe to drop when she lifts her foot. She does use a cane at home. She reports being open to [facility] supports and repo rts they already reached out yesterday to coordinate a visit, she does report she would prefer to wait for services to start until after her surgery on the . Sarah reports having a FWW and Commode at home that were her mother's. Her , present during conversation reports she will be utilizing FWW in home setting. Discharge Potential Discharge Needs: Imaging/labs (Labs: hypokalemia. Hypomagnesemia resolved per MD. ) and PT Evaluation Patient/Family Education Needs: Review discharge instructions, discuss Ask Me Three Transportation: Private vehicle Plan: Sarah will discharge home with new home health orders for PT/OT/DATAPOWER CONSULTANT through [facility]. She will follow up with her PCP, Oncologist and surgeon-with surgery planned 02/09/24. She will transport via private vehicle with her . SDOH(Care Management) Screening Will the Patient Participate in the Screening?: Yes Do you worry about having a steady place to live?: no Problems where you live: no known problems In the past 12 months, have you had to go without electric, gas, oil or water in your home?: no Have you or anyone in your house had to go without enough food to eat?: no Has lack of transportation kept you from medical appointments or from doing things needed for daily living?: no Has anyone in your support network made you feel unsafe for any reason?: no Anticipated HH Services Anticipated HH Services at [facility] ([facility]) Services Needed (PT).
[2024-02-04 19:11] VITALS: BP 119/66; PULSE 82; RESP 15; TEMP 36.1; O2SAT 98
[2024-02-04] MEDS: Folic Acid 1 MG TAB PO (20:18)
[2024-02-04] MEDS: Citalopram 20 MG TAB PO (20:18)
[2024-02-04] MEDS: Loratidine 10 MG TAB PO (20:18)
[2024-02-04 22:56] VITALS: BP 111/69; PULSE 86; RESP 15; TEMP 36.6; O2SAT 98
[2024-02-05] MEDS: Patch Removal LIDOCAINE 1 EACH TP (00:30)
[2024-02-05 03:06] VITALS: BP 103/64; PULSE 84; RESP 16; TEMP 37; O2SAT 95
[2024-02-05 07:20] VITALS: BP 110/61; PULSE 86; RESP 18; TEMP 37.1; O2SAT 97
[2024-02-05] MEDS: Potassium Chloride 20 MEQ TABCR PO (08:06)
[2024-02-05] MEDS: Acetaminophen 325 MG TAB 650 MG PO (08:07)
[2024-02-05 09:08] LABS: Anion Gap 8.5 mmol/L (3-11); BUN 20 mg/dL (7-18); CO2 26.5 mmol/L (21.0-32.0); CREATININE 1.6 mg/dL (0.55-1.02); Calcium 8.8 mg/dL (8.5-10.1); Chloride 105 mmol/L (98-107); Estimated GFR 35.35 (mL/min/1.73m2); Glucose 94 mg/dL (74-106); Magnesium 1.6 mg/dL (1.8-2.4); Potassium 3.8 mmol/L (3.5-5.1); Sodium 140 mmol/L (136-145)
--- NOTE | 2024-02-05 09:48 | PDOC.HHF2F ---
Home Health Referral Home Health Orders Clinical synopsis of why skilled professionals are needed: This 64-year-old female patient with a past medical history of breast cancer, renal cell carcinoma of the left kidney with partial nephrectomy and last chemo session in November 2023, depression with anxiety, presented to the ED at [facility] on 02/02/2024 for evaluation of shakiness, nausea, dry heaving beginning the night prior to presentation. The patient had blood drawn on the day of presentation and was called by the cancer center due to a potassium level of 2.2; they asked her to go to the emergency room. Other remarkable lab result were magnesium of 0.8, creatinine of 1.7 around baseline, albumin 2.6. Chest x-ray completed in the ED showed no acute pulmonary findings; left lower lobe density appeared to be similar to the imaging obtained in November 2023. EKG showed no findings pointing to ischemia; the patient was in atrial fibrillation heart rate 99. MRI did not show evidence of intracranial ring enhancing that would point to metastatic lesions. In November, the patient was admitted with similar presentation for severe sepsis, UTI and demand ischemia. The hospitalist was consulted and the patient was admitted to the medical floor with telemetry for evaluation and management of bipolar magnesium Shari, hypokalemia, nausea and shakiness. During the stay, the patient received potassium and magnesium supplementation. The patient received ondansetron and citalopram dose was adjusted from 40 mg to 20 mg due to the potential of QT prolongation; follow-up dosing on the citalopram to be managed by primary care practitioner. Nausea resolved, the patient was able to tolerate oral intake. Hypomagnesemia is resolved. The patient will be discharged home with oral potassium supplement as potassium supplementation 3 times a day maintained her level at 3.8, and will have basic metabolic panel to be completed with results sent to the primary care practitioner. The patient was to follow-up with the primary care practitioner within 7 days of discharge. Physical Therapy was consulted d/t ongoing weakness with recommendation are for home health physical therapy, thus the patient will be discharged with home health physical therapy. Discussed with Dr. Stark Medical diagnosis necessitation home health referral: Physical Therapy was consulted d/t ongoing weakness with recommendation are for home health physical therapy, thus the patient will be discharged with home health physical therapy. Physical Therapist: Check all that apply Increase strength & endurance for safe mobility at home: Ordered To design/establish home maintenance program: Ordered Fall reduction therapy program for patient with history of frequent falls: Ordered Home safety evaluation and teaching/gait training including stair management (if applicable): Ordered Encounter Date and Reason: I certify that a FTF encounter for this patient was performed on February 05, 2024 and that such encounter was related to the primary reason the patient requires home health services. The encounter was conducted in the following manner: By me as the certifying physician, JOURNALISM PROFESSOR, PA or By an inpatient physician, JOURNALISM PROFESSOR or PA during an inpatient stay who communicated findings to me, Certification And Authentication I certify that I composed the above information based on my clinical judgment relating to this patient's medical condition and, if applicable, clinical findings communicated to me by the NPP or inpatient physician who performed the FTF encounter. Name of Provider that will be monitoring home health services: Rob Ziegler
--- NOTE | 2024-02-05 09:52 | DSE_ITS ---
Date of service: 02/05/24 Time of Service: 09:52 DS: Diagnosis Discharge Diagnosis (1) Hypokalemia: Status: Acute (2) Depression with anxiety: (3) Hypomagnesemia: Status: Resolved (4) Nausea: Status: Acute (5) Weakness: Status: Acute Discharge Plan Disposition Patient Disposition: Home W/Home Health Services Condition: Improving Discharge Details Reason For Visit: Hypomagnesemia,Hypokalemia Admit Date/Time: 02/02/24 15:15 Admit Provider: Tommy Stark Attending Provider: Tommy Stark Primary Care Provider: Rob Ziegler Hospital Course Hospital Course: This 64-year-old female patient with a past medical history of breast cancer, renal cell carcinoma of the left kidney with partial nephrectomy and last chemo session in November 2023, depression with anxiety, presented to the ED at [facility] on 02/02/2024 for evaluation of shakiness, nausea, dry heaving beginning the night prior to presentation. The patient had blood drawn on the day of presentation and was called by the cancer center due to a potassium level of 2.2; they asked her to go to the emergency room. Other remarkable lab result were magnesium of 0.8, creatinine of 1.7 around baseline, albumin 2.6. Chest x-ray completed in the ED showed no acute pulmonary findings; left lower lobe density appeared to be similar to the imaging obtained in November 2023. EKG showed no findings pointing to ischemia; the patient was in atrial fibrillation heart rate 99. MRI did not show evidence of intracranial ring enhancing that would point to metastatic lesions. In November, the patient was admitted with similar presentation for severe sepsis, UTI and demand ischemia. The hospitalist was consulted and the patient was admitted to the medical floor with telemetry for evaluation and management of bipolar magnesium Shari, hypokalemia, nausea and shakiness. During the stay, the patient received potassium and magnesium supplementation. The patient received ondansetron and citalopram dose was adjusted from 40 mg to 20 mg due to the potential of QT prolongation; follow-up dosing on the citalopram to be managed by primary care practitioner. Nausea resolved, the patient was able to tolerate oral intake. Hypomagnesemia is resolved. The patient will be discharged home with oral potassium supplement as potassium supplementation 3 times a day maintained her level at 3.8, and will have basic metabolic panel and a magnesium level to be completed next week with results sent to the primary care practitioner. Patient complaining of right rib pain starting prior to arrival and exacerbated with movement and will be discharged on acetaminophen 1000 mg 3 times daily for 5 days. Persistent pain will have to be reported to the primary care practitioner. Patient also complained of right shoulder pain alleviated by acetaminophen and lidocaine patch: The patient will be discharged on daily lidocaine patch. Patient complaining of difficult bowel movement yesterday and will be discharged on daily docusate 100 mg; advised to stop if diarrhea occurs. The patient was to follow-up with the primary care practitioner within 7 days of discharge. It is a recommendation are for home health physical therapy, thus the patient will be discharged with home health physical therapy. Discussed with Dr. Stark Home Meds and New Rx's Prescriptions: New potassium chloride [Klor-Con M20] 20 mEq Tablet,Er Particles/Crystals 20 meq PO QMEALS Qty: 90 0RF ondansetron 4 mg tablet,disintegrating 4 mg PO Q8H PRNQty: 15 0RF lidocaine [Lidoderm] 5 % adhesive patch,medicated 1 patch topical DAILY Qty: 30 0RF Rx Instructions: leave on most painful area for up to 12 hrs docusate sodium [Colace] 100 mg capsule 100 mg PO DAILY Qty: 30 0RF acetaminophen 500 mg capsule 1,000 mg PO TID Qty: 30 0RF Continued folic acid 1 mg tablet 1 mg PO HS loratadine [Claritin] 10 mg tablet 10 mg PO HS Changed citalopram 40 mg tablet 20 mg PO HS Qty: 0 0RF Discharge Instructions Referrals: Rob Ziegler [Primary Care Provider] - 02/12/24 1:20 pm (Follow-up within 7 days of discharge please) Activity:: Activity as Tolerated Equipment/Supplies:: Walker Diet:: Normal Diet Discharge Orders Other Ambulatory Orders: Basic Metabolic Panel (Routine) Timeframe: 20240210 Location: Determined by Patient Ordered By: Lyn You Magnesium (Routine) Timeframe: 20240210 Location: Determined by Patient Ordered By: yLn You DS: Summary Time Spent with Patient providing and/or coordinating discharge services: Greater than 30 minutes Status at Discharge Functional status at discharge: uses cane/walker Overall status at discharge: patient is progressing back to baseline Mental Status: mental status grossly normal Speech and Movement: speech and movement normal Mood: congruent mood Affect: normal affect Quality:SDOH Health Related Social Needs: No Data to Display Exam Narrative Exam Narrative: Neuro:alert and oriented to self, person, place time and situation. No neurological focal deficit, PERRLA Resp: Clear lung bilaterally Cardio: regular rhythm, S1, S2, no murmur, bilateral radial and dorsalis pedis pulses are positive GI: Abdomen is not distended, soft and slighlty tender to palp, bowel sounds are present : Negative Costovertebral angle tenderness, no bladder distension Back/spine/Pelvis: No back tenderness, normal alignment Integumentary: No skin lesions or rash Extremities: strength 5/5 to bilateral lower and upper extremities Psych: RASS 0, congruent mood and normal affect. Psych Mental Status: mental status grossly normal Speech and Movement: speech and movement normal Mood: congruent mood Affect: normal affect DS: Data Vitals/I&O Vitals and I&O: Vital Signs Temperature 37.1 C 02/05/24 07:20 Temperature Source Temporal Artery Scan 02/05/24 07:20 Pulse 86 02/05/24 07:20 Pulse Rhythm Regular 02/05/24 08:00 Pulse 93 H 02/02/24 15:21 Respiratory Rate 18 02/05/24 07:20 Respiratory Effort Normal 02/05/24 08:00 Respiratory Depth Normal 02/05/24 08:00 Respiratory Pattern Normal 02/05/24 08:00 Blood Pressure 110/61 02/05/24 07:20 Blood Pressure Mean 121 02/02/24 14:16 Blood Pressure Position Sitting 02/02/24 13:10 Pulse Oximetry 97 02/05/24 07:20 Oxygen Delivery Method Room Air 02/05/24 07:20 Oxygen Flow Rate 0 02/05/24 07:20 Pain Level 3 02/05/24 07:20 Comment Pain in ribs 02/04/24 15:07 Intake & Output 02/04/24 02/04/24 02/05/24 11:59 23:59 11:59 Intake Total 700 / 1920 1220 / 1920 Output Total 250 / 750 500 / 750 250 / 250 Balance 450 / 1170 720 / 1170 -250 / -250 Intake: IV 220 / 220 Oral 480 / 1700 1220 / 1700 Output: Urine 250 / 750 500 / 750 250 / 250 Other: Urine Color Yellow Yellow Yellow Light Cecy Urine Appearance Clear Cloudy Clear Urine Odor None None Stool Size Large Stool Characteristics Soft Brown Voiding Methods Bedside Commode Bedside Commode Bedside Commode Data Completed and Pending Labs on day of discharge: Labs from last 24 hours 02/05/24 05:35 WBC Pending RBC Pending Hgb Pending Hct Pending MCV Pending MCH Pending MCHC Pending RDW Pending Plt Count Pending MPV Pending Immature Gran % Pending Neutrophils % Pending Lymphocytes % Pending Monocytes % Pending Eosinophils % Pending Basophils % Pending Absolute Neutrophils Pending Absolute Lymphocytes Pending Absolute Monocytes Pending Absolute Eosinophils Pending Absolute Basophils Pending Sodium Pending Potassium Pending Chloride Pending Carbon Dioxide Pending Anion Gap Pending BUN Pending Creatinine Pending Est GFR (CKD-EPI 2020) Pending Glucose Pending Calcium Pending Magnesium Pending PFSH All Active Problems (Updated 02/05/24 @ 09:54 by Lyn You APRN) Weakness (Acute) Nausea (Acute) Hypokalemia (Acute) Anemia (Chronic) Discharge planning issues (Acute) Breast cancer metastasized to axillary lymph node (Acute) Diarrhea due to drug (Acute) Hypertension (Chronic) Medical History Pneumonia Urinary tract infection Renal carcinoma Renal cell carcinoma of left kidney Depression with anxiety Surgical History H/O left mastectomy H/O partial nephrectomy left, for RCC Social History Smoking/Tobacco Use Status: Never Smoking risk assessment performed?: Yes Alcohol Intake: never Drug use: Never Housing: house Do you feel safe at home: Yes Do you feel safe in your relationship?: Yes Additional Social history: lives with Jevon, who is supportive and helps care for her. Born in [place], grew up in [place] Time Spent with Patient Time Spent with Patient: 45-69 minutes Time was spent: preparing to see the patient(eg.review tests), obtaining and/or reviewing separately otained hiistory, ordering medications,tests, procedures, referring, communicating with other health career development counselor, indepentently interpreting results, counseling the patient and care coordination
[2024-02-05 10:29] LABS: Absolute Lymphocyte Count 0.78 10^3/uL (1.2-3.4); Absolute Monocyte Count 0.41 10^3/uL (0.1-0.8); Absolute Neutrophil Count 2.54 10^3/uL (1.2-6.7); HCT 28.8 % (36.0-46.0); HGB 9.3 g/dL (11.2-15.7); Lymphocytes % 19.1 %; MCH 29.8 pg (27.0-33.0); MCHC 32.3 % (32.0-36.0); MCV 92 fL (80-95); MPV 11.2 fL (8.0-11.0); Neutrophils % 62.3 %; Platelet Count 160 10^3/uL (130-400); RBC 3.12 10^6/uL (3.93-5.22); RDW 13.5 % (11.7-14.6); RDW-SD 45.6 fL; WBC 4.08 10^3/uL (4.4-10.8)
[2024-02-05 10:30] LABS: Abs Immature Grans 0.02 10^3/uL (0.0-0.06); Absolute Basophil Count 0.05 10^3/uL (0.0-0.2); Absolute Eosinophil Count 0.28 10^3/uL (0.0-0.7); Basophils % 1.2 %; Eosinophils % 6.9 %; Immature Grans % 0.5 %
[2024-02-05] MEDS: Normal Saline Flush 10 ML SYR IVP (11:15)
[2024-02-05 11:36] VITALS: BP 112/79; PULSE 86; RESP 20; TEMP 36.7; O2SAT 98
--- NOTE | 2024-02-05 15:02 | CMDISCH_ITS ---
Date of service: 02/05/24 Time of Service: 15:03 LACE Index Scoring Tool Questions: Length of Stay (in days): 3 Was the patient admitted via the E.D.?: Yes Comorbidities: Any Tumor E.D. Visits: 2 Answers: Total Score: 10 Risk of Readmission: High Risk Care Management Discharge Plan Reason for Hospitalization: Hypomagnesemia, Hypokalemia Discharge Plan: Sarah will return home with her , [place] and new home health services through [facility]. She will follow up with her PCP, Oncologist and surgeon-with surgery planned 02/09/24. She will transport via private vehicle with her . Patient/Family Education Needs: Review discharge instructions, discuss Ask Me Three. Services Needed at Discharge: DME Agency (FWW and Cane used in home setting), Home Health Care Services ([facility] ) and Physical Therapy SDOH Health Related Social Needs: No Data to Display
== END 2024-02-05 13:00 | disposition home or self-care (01) | DRG 641 ==
LOC: ER 14:49 → MS 16:11
PROVIDERS: Nurse Practitioner Acute Care; Nurse Practitioner Family; Admitting Provider Family Medicine; Emergency Provider Registered Nurse Emergency; PCP Family Medicine; Visit Provider Family Medicine
DX: E87.6 Hypokalemia (principal); C77.3 Secondary and unspecified malignant neoplasm of axilla and upper limb lymph nodes; E83.42 Hypomagnesemia; F41.8 Other specified anxiety disorders; R11.0 Nausea; R53.1 Weakness; Z85.3 Personal history of malignant neoplasm of breast; I48.91 Unspecified atrial fibrillation; D64.9 Anemia, unspecified; I10 Essential (primary) hypertension; Z85.528 Personal history of other malignant neoplasm of kidney; Z90.5 Acquired absence of kidney; M25.512 Pain in left shoulder; M25.511 Pain in right shoulder; Z79.899 Other long term (current) drug therapy
CPT/HCPCS: 00123; 36415; 80048; 80053; 87637; 93005; 96365; 96366; 96375; 97110; 97163; 97530; 99285; J1650; 71045; 81003; 81015; 83735; 83880; 84132; 84484; 85025; 93010; 99222; 99231; 99232; 99239; J2405; J3475; J3480; J3490

== ENCOUNTER 2024-04-06 14:02 | Outpatient (RCR) | payer OTHER, SELFPAY ==
[2024-04-06 14:10] LABS: Abs Immature Grans 0.03 10^3/uL (0.0-0.06); Absolute Basophil Count 0.02 10^3/uL (0.0-0.2); Absolute Eosinophil Count 0.14 10^3/uL (0.0-0.7); Absolute Lymphocyte Count 1.15 10^3/uL (1.2-3.4); Absolute Monocyte Count 0.53 10^3/uL (0.1-0.8); Absolute Neutrophil Count 3.71 10^3/uL (1.2-6.7); Basophils % 0.4 %; Eosinophils % 2.5 %; HCT 32.5 % (36.0-46.0); HGB 10.5 g/dL (11.2-15.7); Immature Grans % 0.5 %; Lymphocytes % 20.6 %; MCH 28.8 pg (27.0-33.0); MCHC 32.3 % (32.0-36.0); MCV 89 fL (80-95); MPV 11.2 fL (8.0-11.0); Monocytes % 9.5 %; Neutrophils % 66.5 %; Platelet Count 172 10^3/uL (130-400); RBC 3.64 10^6/uL (3.93-5.22); RDW 13.6 % (11.7-14.6); RDW-SD 44.7 fL; WBC 5.58 10^3/uL (4.4-10.8)
[2024-04-06] MEDS: Normal Saline Flush 10 ML SYR IVP (14:16)
[2024-04-06 14:36] LABS: ALT 15 U/L (14-59); AST 26 U/L (15-37); Albumin 2.8 g/dL (3.4-5.0); Alkaline Phosphatase 72 U/L (46-116); Anion Gap 10.7 mmol/L (3-11); BUN 19 mg/dL (7-18); Bilirubin, Total 0.36 mg/dL (0.2-1.0); CO2 23.3 mmol/L (21.0-32.0); CREATININE 1.4 mg/dL (0.55-1.02); Calcium 8.9 mg/dL (8.5-10.1); Chloride 110 mmol/L (98-107); Estimated GFR 41.49 (mL/min/1.73m2); Glucose 100 mg/dL (74-106); Potassium 3.3 mmol/L (3.5-5.1); Sodium 144 mmol/L (136-145); Total Protein 6.6 g/dL (6.4-8.2)
== END 2024-04-29 23:59 | disposition home or self-care (01) ==
LOC: INF 14:02
PROVIDERS: Nurse Practitioner Family; PCP Family Medicine; Visit Provider Internal Medicine Hematology & Oncology
DX: C50.412 Malignant neoplasm of upper-outer quadrant of left female breast; Z45.2 Encounter for adjustment and management of vascular access device; Z17.0 Estrogen receptor positive status [ER+]
CPT/HCPCS: 36591; 80053; 85025

== ENCOUNTER 2024-05-06 14:59 | Outpatient (RCR) | payer OTHER, SELFPAY ==
[2024-05-06] MEDS: Normal Saline Flush 10 ML SYR IVP (14:23)
[2024-05-06 14:29] LABS: Abs Immature Grans 0.01 10^3/uL (0.0-0.06); Absolute Basophil Count 0.02 10^3/uL (0.0-0.2); Absolute Eosinophil Count 0.16 10^3/uL (0.0-0.7); Absolute Lymphocyte Count 2.47 10^3/uL (1.2-3.4); Absolute Monocyte Count 0.59 10^3/uL (0.1-0.8); Absolute Neutrophil Count 4.36 10^3/uL (1.2-6.7); Basophils % 0.3 %; Eosinophils % 2.1 %; HCT 35.8 % (36.0-46.0); HGB 11.7 g/dL (11.2-15.7); Immature Grans % 0.1 %; Lymphocytes % 32.5 %; MCH 29.3 pg (27.0-33.0); MCHC 32.7 % (32.0-36.0); MCV 90 fL (80-95); MPV 11.1 fL (8.0-11.0); Monocytes % 7.8 %; Neutrophils % 57.2 %; Platelet Count 202 10^3/uL (130-400); RBC 3.99 10^6/uL (3.93-5.22); RDW 13.1 % (11.7-14.6); RDW-SD 43.4 fL; WBC 7.61 10^3/uL (4.4-10.8)
[2024-05-06 14:54] LABS: AST 26 U/L (15-37); Albumin 3.1 g/dL (3.4-5.0); Alkaline Phosphatase 85 U/L (46-116); Anion Gap 10.3 mmol/L (3-11); BUN 21 mg/dL (7-18); Bilirubin, Total 0.49 mg/dL (0.2-1.0); CO2 25.7 mmol/L (21.0-32.0); CREATININE 1.7 mg/dL (0.55-1.02); Calcium 9.5 mg/dL (8.5-10.1); Chloride 108 mmol/L (98-107); Estimated GFR 32.87 (mL/min/1.73m2); Glucose 102 mg/dL (74-106); Potassium 3.6 mmol/L (3.5-5.1); Sodium 144 mmol/L (136-145)
[2024-05-06 14:55] LABS: ALT 22 U/L (14-59)
== END 2024-05-29 23:59 | disposition home or self-care (01) ==
LOC: INF 14:59
PROVIDERS: PCP Family Medicine; Visit Provider Internal Medicine Hematology & Oncology
DX: C50.412 Malignant neoplasm of upper-outer quadrant of left female breast (principal); Z17.0 Estrogen receptor positive status [ER+]; Z45.2 Encounter for adjustment and management of vascular access device
CPT/HCPCS: 36591; 80053; 85025

== ENCOUNTER 2024-06-25 01:10 | Outpatient (RCR) | payer OTHER, SELFPAY ==
[2024-06-03] MEDS: Normal Saline Flush 10 ML SYR IVP (11:21)
[2024-06-03 11:25] LABS: Abs Immature Grans 0.01 10^3/uL (0.0-0.06); Absolute Basophil Count 0.04 10^3/uL (0.0-0.2); Absolute Eosinophil Count 0.15 10^3/uL (0.0-0.7); Absolute Lymphocyte Count 1.94 10^3/uL (1.2-3.4); Absolute Monocyte Count 0.57 10^3/uL (0.1-0.8); Absolute Neutrophil Count 4.51 10^3/uL (1.2-6.7); Basophils % 0.6 %; Eosinophils % 2.1 %; HCT 35.5 % (36.0-46.0); HGB 11.7 g/dL (11.2-15.7); Immature Grans % 0.1 %; Lymphocytes % 26.9 %; MCH 29.5 pg (27.0-33.0); MCV 89 fL (80-95); MPV 10.7 fL (8.0-11.0); Monocytes % 7.9 %; Neutrophils % 62.4 %; Platelet Count 199 10^3/uL (130-400); RBC 3.97 10^6/uL (3.93-5.22); RDW 12.6 % (11.7-14.6); RDW-SD 41.3 fL; WBC 7.22 10^3/uL (4.4-10.8)
[2024-06-03 11:52] LABS: ALT 19 U/L (14-59); AST 22 U/L (15-37); Albumin 3.2 g/dL (3.4-5.0); Alkaline Phosphatase 92 U/L (46-116); Anion Gap 12.9 mmol/L (3-11); BUN 22 mg/dL (7-18); Bilirubin, Total 0.31 mg/dL (0.2-1.0); CO2 24.1 mmol/L (21.0-32.0); CREATININE 1.5 mg/dL (0.55-1.02); Calcium 9.2 mg/dL (8.5-10.1); Chloride 107 mmol/L (98-107); Glucose 110 mg/dL (74-106); Sodium 144 mmol/L (136-145); Total Protein 6.9 g/dL (6.4-8.2)
[2024-06-25] MEDS: Normal Saline Flush 10 ML SYR IVP (09:30)
[2024-06-25 09:41] LABS: Abs Immature Grans 0.02 10^3/uL (0.0-0.06); Absolute Basophil Count 0.03 10^3/uL (0.0-0.2); Absolute Eosinophil Count 0.14 10^3/uL (0.0-0.7); Absolute Lymphocyte Count 2.48 10^3/uL (1.2-3.4); Absolute Monocyte Count 0.16 10^3/uL (0.1-0.8); Absolute Neutrophil Count 3.02 10^3/uL (1.2-6.7); Basophils % 0.5 %; Eosinophils % 2.4 %; HCT 32.7 % (36.0-46.0); Immature Grans % 0.3 %; Lymphocytes % 42.4 %; MCH 29.9 pg (27.0-33.0); MCHC 33.6 % (32.0-36.0); MCV 89 fL (80-95); MPV 10.6 fL (8.0-11.0); Monocytes % 2.7 %; Neutrophils % 51.7 %; Platelet Count 147 10^3/uL (130-400); RBC 3.68 10^6/uL (3.93-5.22); RDW 12.4 % (11.7-14.6); RDW-SD 40.7 fL; WBC 5.85 10^3/uL (4.4-10.8)
[2024-06-25 10:00] LABS: ALT 15 U/L (14-59); AST 14 U/L (15-37); Albumin 3.2 g/dL (3.4-5.0); Alkaline Phosphatase 89 U/L (46-116); Anion Gap 13.6 mmol/L (3-11); BUN 31 mg/dL (7-18); CO2 18.4 mmol/L (21.0-32.0); CREATININE 2.6 mg/dL (0.55-1.02); Calcium 9.5 mg/dL (8.5-10.1); Chloride 108 mmol/L (98-107); Estimated GFR 19.74 (mL/min/1.73m2); Glucose 97 mg/dL (74-106); Potassium 3.8 mmol/L (3.5-5.1); Sodium 140 mmol/L (136-145); Total Protein 6.9 g/dL (6.4-8.2)
== END 2024-06-29 23:59 | disposition home or self-care (01) ==
LOC: INF 01:10
PROVIDERS: PCP Family Medicine; Visit Provider Internal Medicine Hematology & Oncology
DX: C50.412 Malignant neoplasm of upper-outer quadrant of left female breast (principal); Z17.0 Estrogen receptor positive status [ER+]; Z45.2 Encounter for adjustment and management of vascular access device
CPT/HCPCS: 36591; 80053; 85025

== ENCOUNTER 2024-07-08 04:10 | Outpatient (RCR) | payer OTHER, SELFPAY ==
[2024-07-08 10:02] LABS: Abs Immature Grans 0.02 10^3/uL (0.0-0.06); Absolute Basophil Count 0.04 10^3/uL (0.0-0.2); Absolute Eosinophil Count 0.04 10^3/uL (0.0-0.7); Absolute Lymphocyte Count 1.58 10^3/uL (1.2-3.4); Absolute Monocyte Count 0.29 10^3/uL (0.1-0.8); Absolute Neutrophil Count 2.75 10^3/uL (1.2-6.7); Basophils % 0.8 %; Eosinophils % 0.8 %; HCT 29.6 % (36.0-46.0); Immature Grans % 0.4 %; Lymphocytes % 33.5 %; MCH 29.9 pg (27.0-33.0); MCHC 33.8 % (32.0-36.0); MCV 88 fL (80-95); MPV 11.3 fL (8.0-11.0); Monocytes % 6.1 %; Neutrophils % 58.4 %; Platelet Count 128 10^3/uL (130-400); RBC 3.35 10^6/uL (3.93-5.22); RDW 14.1 % (11.7-14.6); RDW-SD 45.2 fL; WBC 4.72 10^3/uL (4.4-10.8)
[2024-07-08 10:18] LABS: ALT 7 U/L (14-59); AST 14 U/L (15-37); Albumin 2.7 g/dL (3.4-5.0); Alkaline Phosphatase 87 U/L (46-116); Anion Gap 10.8 mmol/L (3-11); BUN 13 mg/dL (7-18); Bilirubin, Total 0.26 mg/dL (0.2-1.0); CO2 25.2 mmol/L (21.0-32.0); CREATININE 1.4 mg/dL (0.55-1.02); Calcium 8.2 mg/dL (8.5-10.1); Chloride 110 mmol/L (98-107); Estimated GFR 41.49 (mL/min/1.73m2); Glucose 101 mg/dL (74-106); Potassium 3.5 mmol/L (3.5-5.1); Sodium 146 mmol/L (136-145); Total Protein 6.1 g/dL (6.4-8.2)
[2024-07-08] MEDS: Normal Saline Flush 10 ML SYR IVP (10:56)
== END 2024-07-30 23:59 | disposition home or self-care (01) ==
LOC: INF 04:10
PROVIDERS: PCP Family Medicine; Visit Provider Internal Medicine Hematology & Oncology
DX: C50.412 Malignant neoplasm of upper-outer quadrant of left female breast (principal)
CPT/HCPCS: 36591; 80053; 85025

== ENCOUNTER 2024-10-22 12:23 | Outpatient (RCR) | payer OTHER, SELFPAY ==
[2024-10-22 12:41] LABS: Abs Immature Grans 0.01 10^3/uL (0.0-0.06); Absolute Basophil Count 0.04 10^3/uL (0.0-0.2); Absolute Eosinophil Count 0.13 10^3/uL (0.0-0.7); Absolute Lymphocyte Count 1.51 10^3/uL (1.2-3.4); Absolute Monocyte Count 0.54 10^3/uL (0.1-0.8); Absolute Neutrophil Count 4.38 10^3/uL (1.2-6.7); Basophils % 0.6 %; HCT 34.6 % (36.0-46.0); HGB 11.5 g/dL (11.2-15.7); Immature Grans % 0.2 %; Lymphocytes % 22.8 %; MCHC 33.2 % (32.0-36.0); MCV 87 fL (80-95); MPV 10.2 fL (8.0-11.0); Monocytes % 8.2 %; Neutrophils % 66.2 %; Platelet Count 201 10^3/uL (130-400); RBC 3.97 10^6/uL (3.93-5.22); RDW 12.8 % (11.7-14.6); RDW-SD 40.7 fL; WBC 6.61 10^3/uL (4.4-10.8)
[2024-10-22 12:57] LABS: ALT 17 U/L (14-59); AST 15 U/L (15-37); Albumin 3.1 g/dL (3.4-5.0); Alkaline Phosphatase 88 U/L (46-116); Anion Gap 10.6 mmol/L (3-11); BUN 17 mg/dL (7-18); Bilirubin, Total 0.5 mg/dL (0.2-1.0); CO2 26.4 mmol/L (21.0-32.0); CREATININE 1.2 mg/dL (0.55-1.02); Calcium 9.6 mg/dL (8.5-10.1); Chloride 106 mmol/L (98-107); Estimated GFR 49.92 (mL/min/1.73m2); Glucose 104 mg/dL (74-106); Potassium 3.7 mmol/L (3.5-5.1); Sodium 143 mmol/L (136-145); Total Protein 6.7 g/dL (6.4-8.2)
== END 2024-10-27 23:59 | disposition home or self-care (01) ==
LOC: INF 12:23
PROVIDERS: PCP Family Medicine; Visit Provider Nurse Practitioner Family
DX: C50.412 Malignant neoplasm of upper-outer quadrant of left female breast (principal)
CPT/HCPCS: 36591; 80053; 85025